=== PATIENT | female | born 1990 | race Caucasian/White ===

== ENCOUNTER → 2017-03-22 07:40 | Outpatient (CLI) | payer OTHER, SELFPAY ==
[2017-03-22 08:35] LABS: Anion Gap 8 (5-15); BUN 10 mg/dL (7-18); Calcium,Total 8.6 mg/dL (8.5-10.1); Chloride 103 mmol/L (98-107); Creatinine, Serum 0.71 mg/dL (0.55-1.02); EST Glomerular Filtration Rate 105 mL/min (>60); Est Glom Filt Rate - Afr Amer 127 mL/min (>60); Glucose 93 mg/dL (74-106); Sodium Level 138 mmol/L (136-145)
== END ==
PROVIDERS: Family Provider Family Medicine; PCP Family Medicine; Visit Provider Family Medicine
DX: N18.1 Chronic kidney disease, stage 1 (principal)
CPT/HCPCS: 36415; 80048

== ENCOUNTER 2017-04-10 13:04 | Outpatient (RCR) | payer OTHER, SELFPAY ==
--- NOTE | 2017-04-28 08:43 | MASS.EVAL ---
Massage Therapy Evaluation: Initial Evaluation: Date: 04/10/17 Pt Name: Pia Rothman : 89 V#:[id number] Referring Phys: Dr. 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 Radford with the diagnosis of right low back pain. Today she presents with symptoms of pain that goes across her back and right sciatica pain that goes down her leg. The symptoms have been present for a few months. The symptoms commenced due to pulling her back at work and has not completely ever healed. Overall, her health is in good condition. Pia is currently taking contrave, pre camilo vitamins as medications. Objective: The first treatment consisted of an upper body massage and posterior legs. I focused on the paraspinals, upper trapezium, rhomboids, scalenes, ql,s, gluteus medius, sacral ligaments. Moderate-deep pressure was applied with trigger points and muscle stripping. Assessment: Muscle tension was very high with trigger points in the glutes, quadratus lumborum, and lumbar paraspinals on the right side. Patient reported feeling really good post the massage. I feel that the patient is a great candidate for massotherapy at this time. Plan: The plan of care was reviewed with the patient. The patient is to be seen in 2 weeks then on a regular basis for one hour sessions of massotherapy.
--- NOTE | 2017-04-28 08:51 | MASS.EVAL_ITS ---
Massage Therapy Evaluation: Initial Evaluation: Date: 04/10/17 Pt Name: Pia Rothman : 89 V#: [id number] Referring Phys: Dr. 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 Radford with the diagnosis of right low back pain. Today she presents with symptoms of pain that goes across her back and right sciatica pain that goes down her leg. The symptoms have been present for a few months. The symptoms commenced due to pulling her back at work and has not completely ever healed. Overall, her health is in good condition. Pia is currently taking contrave, pre camilo vitamins as medications. Objective: The first treatment consisted of an upper body massage and posterior legs. I focused on the paraspinals, upper trapezium, rhomboids, scalenes, ql,s, gluteus medius, sacral ligaments. Moderate-deep pressure was applied with trigger points and muscle stripping. Assessment: Muscle tension was very high with trigger points in the glutes, quadratus lumborum, and lumbar paraspinals on the right side. Patient reported feeling really good post the massage. I feel that the patient is a great candidate for massotherapy at this time. Plan: The plan of care was reviewed with the patient. The patient is to be seen in 2 weeks then on a regular basis for one hour sessions of massotherapy.
--- NOTE | 2018-02-02 13:52 | DS.PCM_ITS ---
Massage Therapy Discharge Summary: Discharge Date: 02/01/2018 Pia was seen for a massotherapy evaluation on 04/10/17 with the diagnosis of low back pain. She was treated with one sessions of massage therapy consisting of moderate pressure soft tissue techniques, myofascial release and trigger point compression to her lumbar region and hips. Pia responded well to the therapy by reporting decreased tension in her lower back and hips. Her goals for therapy were not met throughout the treatment sessions due to not scheduling more appointments within the time frame given. At this time this patient is being discharged from our care at [facility] facility.
== END 2017-04-10 19:00 | disposition home or self-care (01) ==
LOC: MASS 13:04
PROVIDERS: Family Provider Family Medicine; PCP Family Medicine; Visit Provider Family Medicine
DX: M54.9 Dorsalgia, unspecified (principal)
CPT/HCPCS: 97124

== ENCOUNTER → 2017-08-13 10:20 | Outpatient (CLI) | payer OTHER, SELFPAY ==
[2017-08-13 11:15] LABS: Absolute Lymphocyte Count 1.83 X10^3/ul (0.83-4.51); Absolute Neutrophil Count 8.5 X10^3/uL (2.0-7.7); Basophil# 0.01 X10^3/uL; Basophil% 0.1 % (0-1); Eosinophil# 0.06 X10^3/uL; Eosinophils% 0.6 % (0-5); Hematocrit 39.3 % (37-47); Hemoglobin 13.8 g/dl (12.0-15.0); Lymphocyte # 1.83 X10^3/ul (4.0); Lymphocyte % 16.8 % (19-41); Mean Corp Hgb Conc 35.1 g/gl (32-36); Mean Corpuscular Hgb 28.9 pg (27.0-32.0); Mean Corpuscular Volume 82.2 fL (81-99); Mean Platelet Vol. 10.3 fl (6.2-12.0); Monocyte# 0.42 X10^3/uL; Monocyte% 3.9 % (0-10); Neutrophil # 8.54 X10^3/uL (2.7-7.7); Neutrophil % 78.4 % (47-70); Platelet Count 226 K/mm3 (150-450); RBC Distribution Width CV 12.8 % (11.6-14.6); RBC Distribution Width SD 37.8 fl (35.1-43.9); Red Blood Count 4.78 M/mm3 (4.2-5.4); White Blood Count 10.9 K/mm3 (4.4-11.0)
[2017-08-13 11:19] LABS: POSITIVE COUNT NO; POSITIVE DIFFERENTIAL NO; POSITIVE MORPHOLOGY NO
[2017-08-13 11:42] LABS: ALB/GLOB Ratio 0.8 RATIO (0.9-2.4); AST(SGOT) 19 U/L (15-37); Alanine Aminotransfer ALT/SGPT 30 U/L (13-56); Albumin, Serum 3.3 g/dL (3.2-5.0); Alkaline Phosphatase 88 U/L (45-117); Anion Gap 10 (5-15); BUN 5 mg/dL (7-18); BUN/Creat Ratio 7.3 RATIO (10-20); Calcium,Total 8.2 mg/dL (8.5-10.1); Chloride 107 mmol/L (98-107); Creatinine, Serum 0.68 mg/dL (0.55-1.02); EST Glomerular Filtration Rate 110 mL/min (>60); Est Glom Filt Rate - Afr Amer 133 mL/min (>60); Globulin 3.9 g/dL (2.2-4.2); Glucose 122 mg/dL (74-106); Glucose Challenge Gest 1H 50g 122 mg/dL (70-140); Potassium 3.4 mmol/L (3.5-5.1); Protein, Total 7.2 g/dL (6.4-8.2); Sodium Level 140 mmol/L (136-145)
[2017-08-13 12:26] LABS: HIV - WCH Non-Reactive (Nonreactive); Rubella IgG 290.4 IU/mL
[2017-08-14 02:00] LABS: Chlamydia Trachomatis by PCR Negative (Negative); Neisserai gonorrhoeae by PCR Negative (Negative); Probe Check PASS; Sample Adequacy Control PASS; Specimen Processing Control PASS
[2017-08-14 20:08] LABS: HCV Quant. RNA PCR HCV Not Detected IU/mL (.)
[2017-08-15 10:15] LABS: HEPATITIS B SURFACE AG Negative (Negative)
[2017-08-15 13:30] LABS: HPV Reflexed? NOT INDICATED
[2017-08-17 02:41] LABS: Rapid Plasmin Reagin (RPR) NONREACTIVE (NONREACTIVE)
== END ==
PROVIDERS: Family Provider Family Medicine; PCP Family Medicine; Visit Provider Obstetrics & Gynecology
DX: Z34.90 Encounter for supervision of normal pregnancy, unspecified, unspecified trimester (principal); Z12.4 Encounter for screening for malignant neoplasm of cervix
CPT/HCPCS: 36415; 80053; 82950; 85025; 86592; 86703; 86762; 86850; 86900; 87086; 87340; 87491; 87522; 87591; 88175; G0145

== ENCOUNTER → 2017-09-11 09:31 | Outpatient (CLI) | payer OTHER, SELFPAY | LOC: LABSPEC 09:33 → LAB 09:36 | PROVIDERS: Family Provider Family Medicine; PCP Family Medicine; Visit Provider Obstetrics & Gynecology | DX: Z34.81 Encounter for supervision of other normal pregnancy, first trimester (principal) | CPT/HCPCS: 36415 ==

== ENCOUNTER → 2017-10-10 08:10 | Outpatient (CLI) | payer OTHER, SELFPAY ==
[2017-10-10 08:44] LABS: Hematocrit 38.1 % (37-47); Hemoglobin 13.3 g/dl (12.0-15.0); Mean Corp Hgb Conc 34.9 g/gl (32-36); Mean Corpuscular Hgb 29.1 pg (27.0-32.0); Mean Corpuscular Volume 83.4 fL (81-99); Mean Platelet Vol. 10.2 fl (6.2-12.0); Platelet Count 205 K/mm3 (150-450); RBC Distribution Width CV 13.3 % (11.6-14.6); RBC Distribution Width SD 39.6 fl (35.1-43.9); Red Blood Count 4.57 M/mm3 (4.2-5.4); White Blood Count 10.3 K/mm3 (4.4-11.0)
[2017-10-10 08:51] LABS: Scan Indicated on CBC? Y/N NO
[2017-10-10 08:55] LABS: Albumin, Serum 2.8 g/dL (3.2-5.0); BUN 5 mg/dL (7-18); BUN/Creat Ratio 7.6 RATIO (10-20); Calcium,Total 8.4 mg/dL (8.5-10.1); Chloride 106 mmol/L (98-107); Creatinine, Serum 0.66 mg/dL (0.55-1.02); EST Glomerular Filtration Rate 115 mL/min (>60); Est Glom Filt Rate - Afr Amer 139 mL/min (>60); Glucose 111 mg/dL (74-106); Magnesium 1.8 mg/dL (1.6-2.6); Phosphorus 3.2 mg/dL (2.5-4.9); Potassium 3.6 mmol/L (3.5-5.1); Sodium Level 141 mmol/L (136-145)
[2017-10-10 09:04] LABS: Microalbumin,Random Urine 20.1 mg/L (NO RANGE EST.); Microalbumin:Creatinine Ratio 9.5 mg/g CRE (<30 mg/g CRE)
== END ==
PROVIDERS: Family Provider Family Medicine; PCP Family Medicine; Visit Provider Internal Medicine Nephrology
DX: N18.1 Chronic kidney disease, stage 1 (principal)
CPT/HCPCS: 36415; 80069; 82043; 82570; 83735; 85027

== ENCOUNTER → 2017-11-05 10:41 | Outpatient (CLI) | payer OTHER, SELFPAY | PROVIDERS: Family Provider Family Medicine; PCP Family Medicine; Referring Provider Obstetrics & Gynecology; Visit Provider Obstetrics & Gynecology | DX: Z34.01 Encounter for supervision of normal first pregnancy, first trimester (principal) | CPT/HCPCS: 36415 ==

== ENCOUNTER 2017-11-29 21:54 | Outpatient (CLI) | payer OTHER, SELFPAY ==
[2017-11-29 22:33] VITALS: BMI 39.5
--- NOTE | 2017-12-02 02:49 | OB.TRI.NOTE ---
- Problem List (1) Fall Status: Acute History of Present Illness Date of Service: 11/29/17 Reason For Visit: R/O LABOR History of Present Illness: fall Allergies No Known Allergies Allergy (Verified 11/29/17 22:44) - Pertinent Past Medical History Medical History: Past Medical History (Last Reviewed 11/15/17 @ 08:57 by Abril Corrales) Headaches, cluster Heart murmur Kidney disease h/o apendectomy osteoprosis Surgical History: Past Surgical History (Last Reviewed 11/15/17 @ 08:57 by Abril Corrales) History of tonsillectomy kidney biopsy NST - FHR Rate Baby A Baseline: 150 Impression/Plan fall. fht confirmed and patient reassured, precautions reviewed.
== END 2017-11-29 22:40 | disposition home or self-care (01) ==
LOC: WPOUT 22:29 → WP 22:30
PROVIDERS: Family Provider Family Medicine; PCP Family Medicine; Visit Provider Obstetrics & Gynecology
DX: Z04.3 Encounter for examination and observation following other accident (principal)
CPT/HCPCS: 59050; 99218; G0378

== ENCOUNTER → 2018-01-03 14:24 | Outpatient (CLI) | payer OTHER, SELFPAY ==
[2018-01-03 13:29] VITALS: BMI 39.4
[2018-01-03 14:40] LABS: Absolute Lymphocyte Count 1.51 X10^3/ul (0.83-4.51); Absolute Neutrophil Count 8.8 X10^3/uL (2.0-7.7); Basophil# 0.01 X10^3/uL; Basophil% 0.1 % (0-1); Eosinophil# 0.12 X10^3/uL; Eosinophils% 1.1 % (0-5); Hematocrit 35.1 % (37-47); Hemoglobin 11.8 g/dl (12.0-15.0); Lymphocyte # 1.51 X10^3/ul (4.0); Mean Corp Hgb Conc 33.6 g/gl (32-36); Mean Corpuscular Hgb 28.6 pg (27.0-32.0); Mean Platelet Vol. 9.4 fl (6.2-12.0); Monocyte# 0.32 X10^3/uL; Neutrophil # 8.78 X10^3/uL (2.7-7.7); Neutrophil % 81.6 % (47-70); Platelet Count 191 K/mm3 (150-450); RBC Distribution Width CV 13.5 % (11.6-14.6); Red Blood Count 4.13 M/mm3 (4.2-5.4); White Blood Count 10.8 K/mm3 (4.4-11.0)
[2018-01-03 14:41] LABS: POSITIVE COUNT NO; POSITIVE DIFFERENTIAL NO; POSITIVE MORPHOLOGY NO
[2018-01-03 14:55] LABS: Glucose Challenge Gest 1H 50g 153 mg/dL (70-140)
--- OUTSIDE RECORDS SUMMARY | 2018-02-28 20:01 | XMS RPT_ITS ---
:1990 Author Organization [place] Support Name Relationship Address Phone WANDA FITZGERALD Unavailable [address] + [place] [address] SMUCKER, LEONIDES Unavailable [address] + [place] [address] [facility] Unavailable [address] + [place] [address] FITZGERALDWANDA BURGESS Unavailable [address] + [place] [address] WHITLEY, LEONIDES Unavailable [address] + [place] [address] [facility] Unavailable [address] + [place] [address] FITZGERALDDAPHNEY BURGESSIE Unavailable [address] + [place] [address] SMUCKER, LEONIDES Unavailable [address] + [place] [address] FITZGERALDDAPHNEY BURGESSIE Unavailable [address] + [place] [address] WHITLEY, LEONIDES Unavailable [address] + [place] [address] [facility] Unavailable [address] + [place] [address] FITZGERALDDAPHNEY BURGESSIE Unavailable [address] + [place] [address] SMUCKER, LEONIDES Unavailable [address] + [place] [address] [facility] Unavailable [address] + [place] [address] FITZGERALD, WANDA Unavailable [address] + [place] [address] SMUCKER, LEONIDES Unavailable [address] + [place] [address] [facility] Unavailable [address] + [place] [address] FITZGERALD, WANDA Unavailable [address] + [place] [address] SMUCKER, LEONIDES Unavailable [address] + [place] [address] FITZGERALD, WANDA Unavailable [address] + [place] [address] SMUCKER, LEONIDES Unavailable [address] + [place] [address] [facility] Unavailable [address] + [place] [address] FITZGERALD, WANDA Unavailable [address] + [place] [address] SMUCKER, LEONIDES Unavailable [address] + [place] [address] [facility] Unavailable [address] + [place] [address] FITZGERALD, WANDA Unavailable [address] + [place] [address] SMUCKER, LEONIDES Unavailable [address] + [place] [address] [facility] Unavailable [address] + [place] [address] FITZGERALD, WANDA Unavailable [address] + [place] [address] SMUCKER, LEONIDES Unavailable [address] + [place] [address] FITZGERALD, WANDA Unavailable [address] + [place] [address] SMUCKER, LEONIDES Unavailable [address] + [place] [address] [facility] Unavailable [address] + [place] [address] FITZGERALD, WANDA Unavailable [address] + [place] [address] SMUCKER, LEONIDES Unavailable [address] + [place] [address] [facility] Unavailable [address] + [place] [address] FITZGERALD, WANDA Unavailable [address] + [place] [address] SMUCKER, LEONIDES Unavailable [address] + [place] [address] [facility] Unavailable [address] + [place] [address] FITZGERALD, WANDA Unavailable [address] + [place] [address] SMUCKER, LEONIDES Unavailable [address] + [place] [address] [facility] Unavailable [address] + [place] [address] FITZGERALD, WANDA Unavailable [address] + [place] [address] SMUCKER, LEONIDES Unavailable [address] + [place] [address] FITZGERALD, WANDA Unavailable [address] + [place] [address] SMUCKER, LEONIDES Unavailable [address] + [place] [address] [facility] Unavailable [address] + [place] [address] FITZGERALD, WANDA Unavailable [address] + [place] [address] SMUCKER, LEONIDES Unavailable [address] + [place] [address] [facility] Unavailable [address] + [place] [address] FITZGERALD, WANDA Unavailable [address] + [place] [address] SMUCKER, LEONIDES Unavailable [address] + [place] [address] [facility] Unavailable [address] + [place] [address] FITZGERALD, WANDA Unavailable [address] + [place] [address] SMUCKER, LEONIDES Unavailable [address] + [place] [address] [facility] Unavailable [address] + [place] [address] FITZGERALD, WANDA Unavailable [address] + [place] [address] SMUCKER, LEONIDES Unavailable [address] + [place] [address] [facility] Unavailable [address] + [place] [address] FITZGERALD, WANDA Unavailable [address] + [place] [address] SMUCKER, LEONIDES Unavailable [address] + [place] [address] [facility] Unavailable [address] + [place] [address] FITZGERALD, WANDA Unavailable [address] + [place] [address] SMUCKER, LEONIDES Unavailable [address] + [place] [address] [facility] Unavailable [address] + [place] [address] FITZGERALD, WANDA Unavailable [address] + [place] [address] SMUCKER, LEONIDES Unavailable [address] + [place] [address] [facility] Unavailable [address] + [place] [address] FITZGERALD, WANDA Unavailable [address] + [place] [address] SMUCKER, LEONIDES Unavailable [address] + [place] [address] [facility] Unavailable [address] + [place] [address] FITZGERALD, WANDA Unavailable [address] + [place] [address] SMUCKER, LEONIDES Unavailable [address] + [place] [address] [facility] Unavailable [address] + [place] [address] FITZGERALD, WANDA Unavailable [address] + [place] [address] SMUCKER, LEONIDES Unavailable [address] + [place] [address] [facility] Unavailable [address] + [place] [address] FITZGERALD, ROSALIA Unavailable [address] + [place] [address] FITZGERALD, WANDA Unavailable [address] + [place] [address] FITZGERALD, WANDA Unavailable [address] + [place] [address] SMUCKER, LEONIDES Unavailable [address] + [place] [address] [facility] Unavailable [address] + [place] [address] FITZGERALD, WANDA Unavailable [address] + [place] [address] SMUCKER, LEONIDES Unavailable [address] + [place] [address] [facility] Unavailable [address] + [place] [address] FITZGERALD, WANDA Unavailable [address] + [place] [address] SMUCKER, LEONIDES Unavailable [address] + [place] [address] [facility] Unavailable [address] + [place] [address] FITZGERALD, WANDA Unavailable [address] + [place] [address] SMUCKER, LEONIDES Unavailable [address] + [place] [address] [facility] Unavailable [address] + [place] [address] FITZGERALD, WANDA Unavailable [address] + [place] [address] SMUCKER, LEONIDES Unavailable [address] + [place] [address] [facility] Unavailable [address] + [place] [address] FITZGERALD, WANDA Unavailable [address] + [place] [address] SMUCKER, LEONIDES Unavailable [address] + [place] [address] [facility] Unavailable [address] + [place] [address] FITZGERALD, WANDA Unavailable [address] + [place] [address] SMUCKER, LEONIDES Unavailable [address] + [place] [address] [facility] Unavailable [address] + [place] [address] FITZGERALD, WANDA Unavailable [address] + [place] [address] SMUCKER, LEONIDES Unavailable [address] + [place] [address] [facility] Unavailable [address] + [place] [address] Care Team Providers Name Role Phone SHWETA DYSON Referring Unavailable DORA BARRIENTOS Attending Unavailable DES MOINES SUGEY Primary Care Unavailable KIRT AGUAYO Primary Care Unavailable SHWETA DYSON Referring Unavailable DORA BARRIENTOS Attending Unavailable AMISH MERCEDES Attending Unavailable KIRT AGUAYO Primary Care Unavailable SHWETA DYSON Referring Unavailable AMISH MERCEDES Attending Unavailable KIRT AGUAYO Primary Care Unavailable SHWETA DYSON Referring Unavailable AMISH MERCEDES Attending Unavailable KIRT AGUAYO Primary Care Unavailable SHWETA DYSON Referring Unavailable Yamini Hastings D.C. Attending Unavailable Kirt Aguayo Referring Unavailable Yamini Hastings D.C. Attending Unavailable Kirt Aguayo Referring Unavailable Aguayo, Kirt Primary Care Unavailable Dossie, Yamini Schwartz Attending Unavailable Aguayo, Kirt Referring Unavailable Aguayo, Kirt Primary Care Unavailable [place] RockKaryn Attending Unavailable Aguayo, Kirt Referring Unavailable Aguayo, Kirt Primary Care Unavailable Dossie, Yamini Schwartz Attending Unavailable Aguayo, Kirt Referring Unavailable Aguayo, Kirt Primary Care Unavailable Dossie, Yamini Schwartz Attending Unavailable Aguayo, Kirt Referring Unavailable Aguayo, Kirt Primary Care Unavailable Dossie, Yamini Schwartz Attending Unavailable Aguayo, Kirt Referring Unavailable Aguayo, Kirt Primary Care Unavailable Dossie, Yamini Schwartz Attending Unavailable Aguayo, Kirt Referring Unavailable Aguayo, Kirt Primary Care Unavailable Aguayo, Kirt Attending Unavailable Aguayo, Kirt Referring Unavailable Aguayo, Kirt Primary Care Unavailable Aguayo, Kirt Attending Unavailable Aguayo, Kirt Primary Care Unavailable Aguayo, Kirt Referring Unavailable DOCTOR, OUT OF TOWN Referring Unavailable Aguayo, Kirt Primary Care Unavailable PlaylFredrick Attending Unavailable ASSESSMENT, HEALTH RISK Attending Unavailable ASSESSMENT, HEALTH RISK Referring Unavailable Aguayo, Kirt Primary Care Unavailable MarcanthonyShweta Attending Unavailable Aguayo, Kirt Referring Unavailable Aguayo, Kirt Primary Care Unavailable Marcanthony, Shweta Attending Unavailable Marcanthony, Shweta Referring Unavailable Aguayo, Kirt Primary Care Unavailable Marcanthony, Shweta Attending Unavailable Aguayo, Kirt Referring Unavailable Aguayo, Kirt Primary Care Unavailable OsmanKaryn Attending Unavailable Aguayo, Kirt Referring Unavailable Aguayo, Kirt Primary Care Unavailable Marcanthony, Shweta Attending Unavailable Aguayo, Kirt Referring Unavailable [place] RockKaryn Attending Unavailable Aguayo, Kirt Referring Unavailable Marcanthony, Shweta Attending Unavailable Marcanthony, Shweta Referring Unavailable Aguayo, Kirt Primary Care Unavailable Tanphaichitr, Natthavat Attending Unavailable Aguayo, Kirt Primary Care Unavailable Tanphaichitr, Natthavat Referring Unavailable Dossie, Yamini Schwartz Attending Unavailable Aguayo, Kitr Referring Unavailable Aguayo, Kirt Primary Care Unavailable Dossie, Yamini Schwartz Attending Unavailable Marcanthony, Shweta Attending Unavailable Marcanthony, Shweta Referring Unavailable Aguayo, Kirt Primary Care Unavailable Dossie, Yamini Schwartz Attending Unavailable Aguayo, Kirt Referring Unavailable Dossie, Yamini Schwartz Attending Unavailable Aguayo, Kirt Referring Unavailable Marcanthony, Shweta Attending Unavailable Aguayo, Kirt Primary Care Unavailable Marcanthony, Shweta Attending Unavailable Aguayo, Kirt Primary Care Unavailable Marcanthony, Shweta Consulting Unavailable Marcanthony, Shweta Attending Unavailable Aguayo, Kirt Referring Unavailable Marcanthony, Shweta Attending Unavailable Aguayo, Kirt Primary Care Unavailable Marcanthony, Shweta Attending Unavailable Marcanthony, Shweta Referring Unavailable Aguayo, Kirt Primary Care Unavailable Marcanthony, Shweta Attending Unavailable Aguayo, Kirt Referring Unavailable PROBLEMS PROBLEMS DATE TYPE CONDITION / CODE ATTENDING STATUS SOURCE 01/16/2018 Unknown M99.03 - Segmental Dossie, Yamini Active [place] and [facility] dysfunction of Hospital lumbar region / Repository M99.03(ICD-10) 01/16/2018 Unknown M99.01 - Segmental Dossie, Yamini Active [place] and somatic [facility] dysfunction of Hospital cervical region / Repository M99.01(ICD-10) 01/16/2018 Unknown M99.02 - Segmental Dossie, Yamini Active [place] and somatic [facility] dysfunction of Hospital thoracic region / Repository M99.02(ICD-10) 01/16/2018 Unknown M99.04 - Segmental Dossie, Yamini Active [place] and somatic [facility] dysfunction of Hospital sacral region / Repository M99.04(ICD-10) 01/14/2018 Unknown N05.9 - Unspecified Marcanthony, Active [place] nephritic syndrome [facility] with unspecified Hospital morphologic changes Repository / N05.9(ICD-10) 01/14/2018 Unknown Z34.02 - Encounter Phillip, Active [place] for supervision of [facility] normal first Hospital , second Repository trimester / Z34.02(ICD-10) 01/14/2018 Unknown O09.899 - Marcanthony, Active [place] Supervision of [facility] other high risk Hospital pregnancies, Repository unspecified trimester / O09.899(ICD-10) 01/14/2018 Unknown Z30.9 - Encounter Marcanthval, Active [place] for contraceptive [facility] management, Hospital unspecified / Repository Z30.9(ICD-10) 01/14/2018 Unknown Z3A.30 - 30 weeks Marcanthony, Active [place] gestation of [facility] / Hospital Z3A.30(ICD-10) Repository 01/14/2018 Unknown R73.09 - Other Marcanthony, Active [place] abnormal glucose / [facility] R73.09(ICD-10) Hospital Repository 01/03/2018 Unknown Z34.90 - Encounter Marcanthony, Active [place] for supervision of [facility] normal , Hospital unspecified, Repository unspecified trimester / Z34.90(ICD-10) 01/03/2018 Unknown Z23 - Encounter for Marcmorenita, Active [place] immunization / [facility] Z23(ICD-10) Hospital Repository 01/03/2018 Unknown Z3A.24 - 24 weeks Marcanthony, Active [place] gestation of [facility] / Hospital Z3A.24(ICD-10) Repository 12/03/2017 Unknown Z04.3 - Encounter Phillip, Active [place] for examination and [facility] observation Hospital following other Repository accident / Z04.3(ICD-10) 11/16/2017 Unknown M99.05 - Segmental Yamini Hastings Active [place] and somatic [facility] dysfunction of Hospital pelvic region / Repository M99.05(ICD-10) 11/22/2017 Unknown Z34.01 - Encounter Marcanthony, Active [place] for supervision of [facility] normal first Hospital , first Repository trimester / Z34.01(ICD-10) 11/05/2017 Unknown Z3A.20 - 20 weeks Marcanthony, Active [place] gestation of [facility] / Hospital Z3A.20(ICD-10) Repository 09/20/2017 Unknown Z34.81 - Encounter Marcanthony, Active [place] for supervision of [facility] other normal Hospital , first Repository trimester / Z34.81(ICD-10) 09/11/2017 Unknown Z36.9 - Encounter Phillip, Active [place] for [facility] screening, Hospital unspecified / Repository Z36.9(ICD-10) 03/08/2017 Unknown M54.9 - Dorsalgia, Yamini Hastings Active [place] unspecified / [facility] M54.9(ICD-10) Hospital Repository 02/27/2017 Unknown Z30.432 - Encounter Karyn Brewer Active [place] for removal of [facility] intrauterine Hospital contraceptive Repository device / Z30.432(ICD-10) PROCEDURES PROCEDURES No Procedure Records FoundRESULTS RESULTS CHIROPRACTIC REPORT Observed: 01/15/2018 Status: F Source: [place] 9:02 AM [facility] REPOSITORY [facility] [address] [place] [address] OFFICE VISIT Date of Service: 01/15/18 MR#: [id number] Acct: [id number] Name: PIA ROTHMAN Rep #: [id number] : 1990 Provider: Yamini Abraham D.C. Age/Sex: /F [place] [facility] [place]: Signed Intake Vital Signs01/15/18 Height 5 ft 2 in 01/15/18 Weight: 214 lb 01/15/18 Body Mass Index (BMI) 39.1 Intake Visit Reasons: back pain Chief Complaint: bilateral hip pain Is patient in pain?: Yes Allergies No Known Allergies Allergy (Verified 01/14/18 09:09) Medications vitamin,calcium,brjouzit-owlv-iugvo acid tablet 1 tab PO QDAY 08/13/17 [History Confirmed 01/14/18] aspirin 81 mg chewable tablet 81 mg PO DAILY 10/09/17 [History Confirmed 01/14/18] ranitidine 150 mg tablet 150 mg PO BID #60 tab 11/09/17 [Rx Confirmed 01/14/18] cyclobenzaprine 10 mg tablet 10 mg PO TID PRN #30 tab 01/03/18 [Rx Confirmed 01/14/18] Patient : Yes PFSH Medical History Headaches, cluster (Acute) Heart murmur (Acute) Kidney disease (Acute) h/o apendectomy (Acute) osteoprosis (Acute) Surgical History History of tonsillectomy (Acute) kidney biopsy (Acute) Family History Other Arthritis Breast cancer COPD (chronic obstructive pulmonary disease) Colon cancer Heart disease Hypertension Melanoma Social History Smoking Status: Never smoker alcohol intake: current alcohol intake frequency: holidays/special occasions only Alcohol type: wine, hard liquor details: social substance use type: does not use caffeine: Yes what type of physical activity do you participate in: walking, running duration: 30-45 minutes/day seatbelt use: always do you feel safe at home: Yes additional social history: 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 She is currently 30 weeks and states that her hip pain has increased, leaving her with a sore and tight ache that bands across the low back and into the hips. Rotation, bending, lifting, and twisting causes increased pain, at times the pain can be sharp. Pia also complains of round ligament pain and tightness, but denies any numbness, tingling, or radiculopathy. Location: low back and hips Duration: constant Aggravating or associated factors: rotation, bending, lifting, and twisting Relieving factors: chiro and sitting Pain Quality: aching, dull, cramping, sharp Exam Musc General: Yes normal posture, normal gait and joint tenderness (C5, C6,L3, L5, R SI) Cervical Spine: loss of normal cervical lordosis (mild anterior head carriage), cervical ROM normal, cervical spasm ( L levator scap/upper trap), cervical muscular tenderness Thoracic/Lumbar Spine: thoracic and lumbar spine normal to inspection, pain with thoraco-lumbar ROM, thoraco-lumbar spasm on the right greater than left (QL, piriformis), paraspinal tenderness on the right greater than left (lumbar, pelvis) Sacroiliac joints: on the left Sacrum: tenderness on the left Office Procedures Chiropractic Treatments Procedures Manipulation: 3-4 regions (C4,C6, L3, L sacrum) Assessment AND Plan 1. Segmental and somatic dysfunction of lumbar region M99.03 Orders Orders: 2. Segmental and somatic dysfunction of cervical region M99.01 Orders Orders: 3. Segmental and somatic dysfunction of sacral region M99.04 Plan Detail Other Orders Orders: Goals Decrease pain and spasm Barriers Repetitive lifting Follow Up 1 x month Coding Level of Care Code No Charge Diagnoses Segmental and somatic dysfunction of lumbar region M99.03 Segmental and somatic dysfunction of cervical region M99.01 Segmental and somatic dysfunction of sacral region M99.04 Additional Codes Procedures - Manipulation: 3-4 regions (22897) 01/15/18 0902 <Electronically signed by Yamini Abraham D.C.> Date Yamini Pratt Signature: Date (if applicable) CC: [employer] [facility] OFFICE VISIT Observed: 01/14/2018 Status: F Source: [place] REPORT 9:30 AM [facility] REPOSITORY [facility] [address] [place] [address] OFFICE VISIT Date of Service: 01/14/18 MR#: [id number] Acct: [id number] Name: PIA ROTHMAN Rep #: [id number] : 1990 Provider: Shweta Dyson MD Age/Sex: 27/F [place] [facility] [place]: Signed Intake Vital Signs01/14/18 Body Mass Index (BMI) 39.4 01/14/18 Height 5 ft 2 in 01/14/18 Weight: 214 lb 8 oz 01/14/18 Body Mass Index (BMI) 39.2 01/14/18 Blood Pressure 122/72 H Intake Visit Reasons: 30 weeks Family Protection Specialist Required: No Is patient in pain?: No Allergies No Known Allergies Allergy (Verified 01/14/18 09:09) Medications vitamin,calcium,mukirahs-wwnd-wbumg acid tablet 1 tab PO QDAY 08/13/17 [History Confirmed 01/14/18] aspirin 81 mg chewable tablet 81 mg PO DAILY 10/09/17 [History Confirmed 01/14/18] ranitidine 150 mg tablet 150 mg PO BID #60 tab 11/09/17 [Rx Confirmed 01/14/18] cyclobenzaprine 10 mg tablet 10 mg PO TID PRN #30 tab 01/03/18 [Rx Confirmed 01/14/18] Last Menstral Period: 06/16/17 Zika: Zika virus screening: Negative : No PFSH PFSH Medical History Headaches, cluster (Acute) Heart murmur (Acute) Kidney disease (Acute) h/o apendectomy (Acute) osteoprosis (Acute) Surgical History History of tonsillectomy (Acute) kidney biopsy (Acute) Family History Other Arthritis Breast cancer COPD (chronic obstructive pulmonary disease) Colon cancer Heart disease Hypertension Melanoma Social History Smoking Status: Never smoker alcohol intake: current alcohol intake frequency: holidays/special occasions only Alcohol type: wine, hard liquor details: social substance use type: does not use caffeine: Yes what type of physical activity do you participate in: walking, running duration: 30-45 minutes/day seatbelt use: always do you feel safe at home: Yes 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 OB Visit KRISTINE Calculator Estimated Delivery Date 03/23/18 Based on LMP (certain) 06/16/17 Current WG 30w 2d Number 1 Expected Delivery Route/Plan Specific Issue/Plans flu vaccine: given tdap vaccine: tdap given rhogam: NA LARC form signed: declines labor support person: [place] pain management: epidural cut cord/dad catch: cord : yes PP control planned: mirena IUD special requests: [] Initial Weight: 205 lb Date Weight BP Urine PrFHR FuHt Pres MoCTX DilationFetal StVisit NoProviderComments E ot v te GA G Effac lucose ed Visit Notes Visit Date: 01/14/18 no vb lof good fm no regular ctx Shweta Dyson MD on 01/14/18 Visit Date: 01/03/18 no vb lof good fm n oregular ctx.cbc gct tdap Shweta Dyson MD on 01/03/18 Visit Date: 12/03/17 Doing well. Reviewed 2 vessel cord. No VB, LOF ARASH LangleyC on 12/03/17 Visit Date: 10/09/17 Doing well. No VB, LOF ARASH LangleyC on 10/09/17 Visit Date: 09/11/17 feeling anxious Shweta Dyson MD on 09/11/17 Visit Date: 08/13/17 No visit notes to display ACOG First Trimester First Trimester: Desire for , Alcohol, Tobacco Cessation, Illicit/Recreational Drug/Substance Use, Intimate Partner Violence, Barriers to care, Unstable Housing, Communication Barriers, Environmental/Work Hazards, Anticipated Course of Care, Toxoplasmosis Precations, Sexual activity, Exercise, Dental Care, Sauna/Hot tub use, Seat Belt use, Childbirth classes/Hospital facilities, , Travel, Indications for US and Screening for Aneuploidy; discussed Use of Any medications Diagnostics Diagnostics Labs Hct 35.1 % (37-47) L 01/03/18 Hgb 11.8 g/dl (12.0-15.0) L 01/03/18 Glucose 1 Hr 50 gm 153 mg/dL (70-140) H 01/03/18 Miscellaneous Test 11/05/17 Details: HIV: Urine Culture: Sequential Screen: NIPT Screen: Results [id number] Office Urine Glucose Negative Last Edit by Claudine Botello on 01/14/18 09:08 Office Urine Protein Negative Last Edit by Claudine Botello on 01/14/18 09:08 Assessment AND Plan Problems 1. Unspecified contraceptive management Z30.9 2. Two vessel umbilical cord, antepartum, single gestation O09.899 following with mfm. growth us q 4 weeks, weekly nsts after 32. 3. 30 weeks gestation of Z3A.30 MFM US ordered. echocardiogram-2 vessel cord, weekly NST at 32 weeks, growth US every 4 weeks. NIPT done, low risk, afp- negative. carrier screening declined. 4. Glomerulonephritis N05.9 MPGN with complete resolution- s/p mfm consult, recommend baby ASA, growth US in third trimester 5. Encounter for supervision of normal first in second trimester Z34.02 PRR KRISTINE 03/23/18 girl [place] 6. Abnormal glucose R73.09 3 hr GTT normal Plan movement and labor precautions reviewed. ACOG trimester education reviewed and updated. see problem list details for updated plan management information and see below for orders placed at this visit. GA appropriate handout given. Orders Orders: Plan Detail Goals Decrease pain and spasm Barriers Repetitive lifting Coding Level of Care Code OB Routine Diagnoses Unspecified contraceptive management Z30.9 Two vessel umbilical cord, antepartum, single gestation O09.899 30 weeks gestation of Z3A.30 Weeks of gestation: 30 weeks Glomerulonephritis N05.9 Encounter for supervision of normal first in second trimester Z34.02 Normal : normal first Trimester: second trimester Abnormal glucose R73.09 01/14/18 0930 <Electronically signed by Shweta Dyson MD> Date Shweta Dyson MD Cosigner Signature: Date (if applicable) CC: GESTATIONAL GTT 3HR Collected: 01/08/2018 Status: F Source: [place] 100G 6:58 AM [facility] REPOSITORY Order Comment: Is Patient Fasting? Y TYPE CODE TESTS RESULT OUT OF RANGE REFERENCE UNITS LAB L501.0650 <105 mg/dL Normal GLU 71 GTT-FASTING Result Comment: GLUCOSE TOLERANCE TEST FOR Reference Interval GESTATIONAL DIABETES Fasting <105 mg/dL 1 hour <190 mg/dl 2 hour <165 mg/dl 3 hour <145 mg/dl LAB L501.0660 <190 mg/dL Normal GLU GTT- 1HR 163 LAB L501.0670 <165 mg/dL Normal GLU GTT- 2HR 133 LAB L501.0680 <145 L Normal GLU GTT- 3HR 105 Performed By: #### L500.4710 #### [facility] [address] [place], [address] OPERATOR [employer] OFFICE VISIT Observed: 01/03/2018 Status: F Source: [place] REPORT 2:59 PM [facility] REPOSITORY [facility] [address] [place] [address] OFFICE VISIT Date of Service: 01/03/18 MR#: [id number] Acct: [id number] Name: PIA ROTHMAN Rep #: [id number] : 1990 Provider: Shweta Dyson MD Age/Sex: 27/F [place] [facility]: Signed Intake Vital Signs01/03/18 Height 5 ft 2 in 01/03/18 Weight: 216 lb 01/03/18 Body Mass Index (BMI) 39.4 01/03/18 Blood Pressure 104/60 Intake Visit Reasons: 28 weeks Chief Complaint: est ob Family Protection Specialist Required: No Is patient in pain?: No Allergies No Known Allergies Allergy (Verified 01/03/18 13:30) Medications vitamin,calcium,qceownrf-mvka-valem acid tablet 1 tab PO QDAY 08/13/17 [History Confirmed 01/03/18] aspirin 81 mg chewable tablet 81 mg PO DAILY 10/09/17 [History Confirmed 01/03/18] ranitidine 150 mg tablet 150 mg PO BID #60 tab 11/09/17 [Rx Confirmed 01/03/18] Last Menstral Period: 06/16/17 Zika: Zika virus screening: Negative : No PFSH PFSH Medical History Headaches, cluster (Acute) Heart murmur (Acute) Kidney disease (Acute) h/o apendectomy (Acute) osteoprosis (Acute) Surgical History History of tonsillectomy (Acute) kidney biopsy (Acute) Family History Other Arthritis Breast cancer COPD (chronic obstructive pulmonary disease) Colon cancer Heart disease Hypertension Melanoma Social History Smoking Status: Never smoker alcohol intake: current alcohol intake frequency: holidays/special occasions only Alcohol type: wine, hard liquor details: social substance use type: does not use caffeine: Yes what type of physical activity do you participate in: walking, running duration: 30-45 minutes/day seatbelt use: always do you feel safe at home: Yes additional 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 OB Visit KRISTINE Calculator Estimated Delivery Date 03/23/18 Based on LMP (certain) 06/16/17 Current WG 28w 5d Number 1 Expected Delivery Route/Plan Specific Issue/Plans flu vaccine: given tdap vaccine: tdap given rhogam: NA LARC form signed: ezra labor support person: [place] pain management: epidural cut cord/dad catch: cord : yes PP control planned: mirena IUD special requests: [] Initial Weight: Not Recorded Date Weight BP Urine PFHR FuHt Pres MCTX DilatioFetal SVisit NProvideComment rot ov n t ote r s EGA Ef Gluco faced se 08/14/1211 lb 114/70 8 8w 2d Visit Notes Visit Date: 01/03/18 no vb lof good fm n oregular ctx.cbc gct tdap Shweta Dyson MD on 01/03/18 Visit Date: 12/03/17 Doing well. Reviewed 2 vessel cord. No VB, LOF Karyn Brewer NP-C on 12/03/17 Visit Date: 10/09/17 Doing well. No VB, LOF Karyn Brewer NP-C on 10/09/17 Visit Date: 09/11/17 feeling anxious Shweta Dyson MD on 09/11/17 Visit Date: 08/13/17 No visit notes to display ACOG First Trimester First Trimester: Desire for , Alcohol, Tobacco Cessation, Illicit/Recreational Drug/Substance Use, Intimate Partner Violence, Barriers to care, Unstable Housing, Communication Barriers, Environmental/Work Hazards, Anticipated Course of Care, Toxoplasmosis Precations, Sexual activity, Exercise, Dental Care, Sauna/Hot tub use, Seat Belt use, Childbirth classes/Hospital facilities, , Travel, Indications for US and Screening for Aneuploidy; discussed Use of Any medications Diagnostics Diagnostics Labs Hct 35.1 % (37-47) L 01/03/18 Hgb 11.8 g/dl (12.0-15.0) L 01/03/18 Glucose 1 Hr 50 gm 153 mg/dL (70-140) H 01/03/18 Miscellaneous Test 11/05/17 Details: HIV: Urine Culture: Sequential Screen: NIPT Screen: Results [id number] Office Urine Glucose Negative Last Edit by Tammy Irvin on 01/03/18 14:25 Office Urine Protein Negative Last Edit by Tammy Irvin on 01/03/18 14:25 Immunizations Boostrix Tdap Performing Provider: Shweta Dyson MD Administered by: Claudine Botello on 01/03/18 14:20 Dose Route Admin Location Lot Number Expiration Date NDC Movie Projectionist 0.5 mL IM Left Arm (SQ) [id number] 11/30/19 62564-040-15 [employer] VIS Given Date VIS Publication Date 01/03/18 03/31/14 Eligibility Eligibility Date Assessment AND Plan Problems 1. Encounter for supervision of normal first in second trimester Z34.02 PRR KRISTINE 03/23/18 [place] 2. Glomerulonephritis N05.9 MPGN with complete resolution- s/p mfm consult, recommend baby ASA, growth US in third trimester 3. 24 weeks gestation of Z3A.24 MFM US ordered. echocardiogram-2 vessel cord, weekly NST at 32 weeks, growth US every 4 weeks. NIPT done, low risk, afp- negative. carrier screening declined. 4. Two vessel umbilical cord, antepartum, single gestation O09.899 following with mfm. growth us q 4 weeks, weekly nsts after 32. 5. Unspecified contraceptive management Z30.9 Plan movement and labor precautions reviewed. ACOG trimester education reviewed and updated. see problem list details for updated plan management information and see below for orders placed at this visit. GA appropriate handout given. Orders Orders: Medications Discontinued: Boostrix Tdap (diphth,pertus(acell),tetanus) Di0.5 mL IM ONCE 1 mL 0RF NS O09.899, Z23 scontinued Reason: Office Medication has been Doc umented as given Plan Detail Goals Decrease pain and spasm Barriers Repetitive lifting Coding Level of Care Code OB Routine Diagnoses Encounter for supervision of normal first in second trimester Z34.02 Normal : normal first Trimester: second trimester Glomerulonephritis N05.9 24 weeks gestation of Z3A.24 Weeks of gestation: 24 weeks Two vessel umbilical cord, antepartum, single gestation O09.899 Unspecified contraceptive management Z30.9 01/03/18 1459 <Electronically signed by Shweta Dyson MD> Date Shweta Dyson MD Cosigner Signature: Date (if applicable) CC: CBC W/DIFF, AUTOMATED Collected: 01/03/2018 Status: F Source: [place] 2:28 PM [facility] REPOSITORY TYPE CODE TESTS RESULT OUT OF RANGE REFERENCE UNITS LAB L100.1000 4.4-11.0 K/mm3 Normal WBC 10.8 LAB L100.1200 4.2-5.4 M/mm3 Low RBC 4.13 LAB L100.1300 12.0-15.0 g/dl Low HGB 11.8 LAB L100.1400 37-47 % Low HCT 35.1 LAB L100.1500 81-99 fL Normal MCV 85.0 LAB L100.1600 27.0-32.0 pg Normal MCH 28.6 LAB L100.1700 32-36 g/gl Normal MCHC 33.6 LAB L100.1810 11.6-14.6 % Normal RDW CV 13.5 LAB L100.1820 35.1-43.9 fl Normal RDW SD 42.0 LAB L100.1900 150-450 K/mm3 Normal PLT 191 LAB L100.2000 6.2-12.0 fl Normal MPV 9.4 LAB L100.2100 47-70 % High NEUT% 81.6 LAB L100.2200 19-41 % Low LY% 14.0 LAB L100.2300 0-10 % Normal MONO% 3.0 LAB L100.2400 0-5 % Normal EO% 1.1 LAB L100.2500 0-1 % Normal BASO% 0.1 LAB L100.2550 0.0-0.9 % Normal IM GRAN % 0.200 Result Comment: IG% - Immature Granulocytes (promyelocytes, myelocytes and metamyelocytes) > 1% indicates that a LEFT SHIFT is Present. LAB L100.2620 2.0-7.7 X10 3/uL High Absolute Neut 8.8 LAB L100.2720 0.83-4.51 X10 3/ul Normal Absolute Lymph 1.51 Performed By: #### L100.0100 #### [facility] [address], [address] GLUCOSE CHALLENGE GEST Collected: 01/03/2018 Status: F Source: [place] 1H 50G 2:28 PM [facility] REPOSITORY TYPE CODE TESTS RESULT OUT OF RANGE REFERENCE UNITS LAB L501.0250 70-140 mg/dL High GLU GEST 153 50g 1H Performed By: #### L501.0250 #### [place] [facility] [address], [address] OPERATOR [employer] OFFICE VISIT Observed: 12/03/2017 Status: F Source: [place] REPORT 3:35 PM [facility] REPOSITORY [facility] [address] [place] [address] OFFICE VISIT Date of Service: 12/03/17 MR#: [id number] Acct: [id number] Name: PIA ROTHMAN Venkat Rep #: [id number] : 1990 Provider: FLORENTINO Brewer Age/Sex: [place] [facility] [place]: Signed Intake Vital Signs12/03/17 Height 5 ft 2 in 12/03/17 Weight: 215 lb 8 oz 12/03/17 Body Mass Index (BMI) 39.4 12/03/17 Blood Pressure 118/78 Intake Visit Reasons: 24 weeks Family Protection Specialist Required: No Accompanied by: Is patient in pain?: No Allergies No Known Allergies Allergy (Verified 12/03/17 08:13) Medications vitamin,calcium,ymqyeljt-lqlc-wcrwr acid tablet 1 tab PO QDAY 08/13/17 [History Confirmed 11/29/17] aspirin 81 mg chewable tablet 81 mg PO DAILY 10/09/17 [History Confirmed 11/29/17] ranitidine 150 mg tablet 150 mg PO BID #60 tab 11/09/17 [Rx Confirmed 11/29/17] Last Menstral Period: 06/16/17 Zika: Zika virus screening: Negative : No Nurse's Note: Pt states she fell at work evening, but had gotten checked at labor and delivery and everything checked out ok. She also has questions regarding the future NSTs and some medication. PFSH PFSH Medical History Headaches, cluster (Acute) Heart murmur (Acute) Kidney disease (Acute) h/o apendectomy (Acute) osteoprosis (Acute) Surgical History History of tonsillectomy (Acute) kidney biopsy (Acute) Family History Other Arthritis Breast cancer COPD (chronic obstructive pulmonary disease) Colon cancer Heart disease Hypertension Melanoma Social History Smoking Status: Never smoker alcohol intake: current alcohol intake frequency: holidays/special occasions only Alcohol type: wine, hard liquor details: social substance use type: does not use caffeine: Yes what type of physical activity do you participate in: walking, running duration: 30-45 minutes/day seatbelt use: always do you feel safe at home: Yes 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 OB Visit KRISTINE Calculator Estimated Delivery Date 03/23/18 Based on LMP (certain) 06/16/17 Current WG 24w 2d Number 1 Expected Delivery Route/Plan Specific Issue/Plans flu vaccine: given tdap vaccine: [] rhogam: NA LARC form signed: declines labor support person: Leonides pain management: epidural cut cord/dad catch: cord : yes PP control planned: mirena IUD special requests: [] Initial Weight: Not Recorded Date Weight BP Urine PrFHR FuHt Pres MoCTX DilationFetal StVisit NoProviderComments E ot v te GA G Effac lucose ed Visit Notes Visit Date: 12/03/17 Doing well. Reviewed 2 vessel cord. No VB, LOF GILL Langley on 12/03/17 Visit Date: 10/09/17 Doing well. No VB, STEVANF ARASH LangleyC on 10/09/17 Visit Date: 09/11/17 feeling anxious Shweta Dyson MD on 09/11/17 Visit Date: 08/13/17 No visit notes to display ACOG First Trimester First Trimester: Desire for , Alcohol, Tobacco Cessation, Illicit/Recreational Drug/Substance Use, Intimate Partner Violence, Barriers to care, Unstable Housing, Communication Barriers, Environmental/Work Hazards, Anticipated Course of Care, Toxoplasmosis Precations, Sexual activity, Exercise, Dental Care, Sauna/Hot tub use, Seat Belt use, Childbirth classes/Hospital facilities, , Travel, Indications for US and Screening for Aneuploidy; discussed Use of Any medications Diagnostics Diagnostics Labs Blood Type O POSITIVE 08/13/17 Antibody Screen NEGATIVE 08/13/17 Hct 38.1 % (37-47) 10/10/17 Hgb 13.3 g/dl (12.0-15.0) 10/10/17 Rubella IgG Antibody 290.4 IU/mL 08/13/17 RPR NONREACTIVE (NONREACTIVE) 08/13/17 Hep Bs Antigen Negative (Negative) 08/13/17 Chlam trachomat DNA PCR Negative (Negative) 08/13/17 N.gonorrhoeae DNA (PCR) Negative (Negative) 08/13/17 Glucose 1 Hr 50 gm 122 mg/dL (70-140) 08/13/17 Miscellaneous Test 11/05/17 Details: HIV: Urine Culture: Sequential Screen: NIPT Screen: Results [id number] Office Urine Glucose Negative Last Edit by Claudine Botello on 12/03/17 08:19 Office Urine Protein Negative Last Edit by Claudine Botello on 12/03/17 08:19 Assessment AND Plan Problems 1. Encounter for supervision of normal first in second trimester Z34.02 PRR KRISTINE 03/23/18 [place] 2. 24 weeks gestation of Z3A.24 MFM US ordered. echocardiogram-2 vessel cord, weekly NST at 32 weeks, growth US every 4 weeks. NIPT done, low risk, afp- negative. carrier screening declined. 3. Glomerulonephritis N05.9 MPGN with complete resolution- s/p mfm consult, recommend baby ASA, growth US in third trimester 4. Two vessel umbilical cord, antepartum, single gestation O09.899 following with mfm. growth us q 4 weeks, weekly nsts after 32. 5. Encounter for management of intrauterine contraceptive device (IUD), unspecified IUD management type Z30.431 Plan Orders placed: growth US is scheduled with MFM this week Plans mirena IUD at 6 wk pp visit Reviewed of labor precautions, movement/kick counts ACOG trimester education reviewed and updated See problem list details for updated plan of care Gestational age appropriate handout given RTO: 4 weeks Orders Orders: Plan Detail Goals Decrease pain and spasm Barriers Repetitive lifting Coding Level of Care Code OB Routine Diagnoses Encounter for supervision of normal first in second trimester Z34.02 Normal : normal first Trimester: second trimester 24 weeks gestation of Z3A.24 Weeks of gestation: 24 weeks Glomerulonephritis N05.9 Two vessel umbilical cord, antepartum, single gestation O09.899 Encounter for management of intrauterine contraceptive device (IUD), unspecified IUD management type Z30.431 Contraceptive encounter type: IUD management IUD management: unspecified 12/03/17 1535 <Electronically signed by Karyn GRALAND> Date Karyn GARLAND Cosigner Signature: Date (if applicable) CC: CHIROPRACTIC REPORT Observed: 11/19/2017 Status: F Source: [place] 9:15 AM [facility] [address] [place] [address] OFFICE VISIT Date of Service: 11/15/17 MR#: [id number] Acct: [id number] Name: PIA ROTHMAN Rep #: [id number] : 1990 Provider: Yamini Abraham D.C. Age/Sex: 26/F [place] [facility] [place]: Signed Intake Vital Signs11/15/17 Height 5 ft 2 in 11/15/17 Weight: 211 lb 11/15/17 Body Mass Index (BMI) 38.5 Intake Visit Reasons: back pain Chief Complaint: R sided low back pain Is patient in pain?: Yes Allergies No Known Allergies Allergy (Verified 11/05/17 09:56) Medications vitamin,calcium,roouxxkh-gfcc-sjfgg acid tablet 1 tab PO QDAY 08/13/17 [History Confirmed 11/05/17] aspirin 81 mg chewable tablet 81 mg PO DAILY 10/09/17 [History Confirmed 11/05/17] ranitidine 150 mg tablet 150 mg PO BID #60 tab 11/09/17 [Rx] PFSH Medical History Headaches, cluster (Acute) Heart murmur (Acute) Kidney disease (Acute) h/o apendectomy (Acute) osteoprosis (Acute) Surgical History History of tonsillectomy (Acute) kidney biopsy (Acute) Family History Other Arthritis Breast cancer COPD (chronic obstructive pulmonary disease) Colon cancer Heart disease Hypertension Melanoma Social History Smoking Status: Never smoker alcohol intake: current alcohol intake frequency: holidays/special occasions only Alcohol type: wine, hard liquor details: social substance use type: does not use caffeine: Yes what type of physical activity do you participate in: walking, running duration: 30-45 minutes/day seatbelt use: always do you feel safe at home: Yes 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 She states that her pain has increased leaving her with a tight and sharp ache that bands across the low back. Working, heavy lifting, bending, and twisting seem to cause increased pain with a sharp shooting radiating into the R leg. Her neck gets sore and achy on occasion. Pia denies any numbness, tingling, or radiculopathy. Location: R low back Duration: intermittent Aggravating or associated factors: frequent bending, lifting, and twisting Relieving factors: chiro and sitting Pain Quality: aching, dull, cramping, sharp, radiating Exam Musc General: Yes normal posture, normal gait and joint tenderness (C5, C6,L3, L5, R SI) Cervical Spine: loss of normal cervical lordosis (mild anterior head carriage), cervical ROM normal, cervical spasm ( L levator scap/upper trap), cervical muscular tenderness Thoracic/Lumbar Spine: thoracic and lumbar spine normal to inspection, pain with thoraco-lumbar ROM, thoraco-lumbar spasm on the right greater than left (lower lumbar), paraspinal tenderness on the right in the lower lumbar and in the mid lumbar and bilaterally in the upper thoracic Sacroiliac joints: on the left Sacrum: tenderness Office Procedures Chiropractic Treatments Procedures Manipulation: 3-4 regions (C6,L3, R sacrum, LIL) Assessment AND Plan 1. Segmental and somatic dysfunction of pelvic region M99.05 Orders Orders: 2. Segmental and somatic dysfunction of sacral region M99.04 Orders Orders: 3. Segmental and somatic dysfunction of cervical region M99.01 Orders Orders: 4. Segmental and somatic dysfunction of lumbar region M99.03 Orders Orders: Plan Detail Other Orders Orders: Goals Decrease pain and spasm Barriers Repetitive lifting Follow Up 2 Weeks Coding Level of Care Code No Charge Diagnoses Segmental and somatic dysfunction of pelvic region M99.05 Segmental and somatic dysfunction of sacral region M99.04 Segmental and somatic dysfunction of cervical region M99.01 Segmental and somatic dysfunction of lumbar region M99.03 Additional Codes Procedures - Manipulation: 3-4 regions ([id number]) 11/19/17 0915 <Electronically signed by Yamini Abraham D.C.> Date Yamini Abraham D.C. Cosigner Signature: Date (if applicable) CC: CHIROPRACTIC REPORT Observed: 11/06/2017 Status: F Source: [place] 9:28 AM [facility] [address] [place] [id number] OFFICE VISIT Date of Service: 11/06/17 MR#: [id number] Acct: [id number] Name: PIA ROTHMAN Rep #: [id number] : 1990 Provider: Yamini Abraham D.C. Age/Sex: 26/F [place] [facility] Status: Signed Intake Vital Signs11/06/17 Height 5 ft 2 in 11/06/17 Weight: 211 lb 11/06/17 Body Mass Index (BMI) 38.5 Intake Visit Reasons: back pain Is patient in pain?: Yes Allergies No Known Allergies Allergy (Verified 11/05/17 09:56) Medications vitamin,calcium,pyxhzukb-xuce-jquzz acid tablet 1 tab PO QDAY 08/13/17 [History Confirmed 11/05/17] aspirin 81 mg chewable tablet 81 mg PO DAILY 10/09/17 [History Confirmed 11/05/17] [facility] Medical History Headaches, cluster (Acute) Heart murmur (Acute) Kidney disease (Acute) h/o apendectomy (Acute) osteoprosis (Acute) Surgical History History of tonsillectomy (Acute) kidney biopsy (Acute) Family History Other Arthritis Breast cancer COPD (chronic obstructive pulmonary disease) Colon cancer Heart disease Hypertension Melanoma Social History Smoking Status: Never smoker alcohol intake: current alcohol intake frequency: holidays/special occasions only Alcohol type: wine, hard liquor details: social substance use type: does not use caffeine: Yes what type of physical activity do you participate in: walking, running duration: 30-45 minutes/day seatbelt use: always do you feel safe at home: Yes 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 She states that her neck pain is minimal leaving her with only a dull ache after working a long shift. Today Anne Marie rates her pain a 3/10, she states that her low back pain does come and go, although after exerting herself and doing frequent bending and lifting the pain does increase radiating into the legs. While driving a long distance her pain did not increase due to frequent stops, although at night her back becomes painful. Pia denies any numbness or tingling. Location: low back Duration: intermittent Aggravating or associated factors: exertion and lifting Relieving factors: chiro Pain Quality: aching, dull, cramping Exam Musc General: Yes normal posture, normal gait and joint tenderness (L3, L5, R SI) Cervical Spine: loss of normal cervical lordosis (mild anterior head carriage), cervical ROM normal, cervical spasm ( L levator scap/upper trap), cervical muscular tenderness Thoracic/Lumbar Spine: thoracic and lumbar spine normal to inspection, pain with thoraco-lumbar ROM, thoraco-lumbar spasm on the right in the lower lumbar and in the mid lumbar, paraspinal tenderness on the right greater than left (L2-L5) Sacroiliac joints: on the left Sacrum: tenderness on the right Office Procedures Chiropractic Treatments Procedures Manipulation: 3-4 regions (L3, R sacrum, LIL) Assessment AND Plan 1. Segmental and somatic dysfunction of lumbar region M99.03 Orders Orders: 2. Segmental and somatic dysfunction of sacral region M99.04 3. Segmental and somatic dysfunction of pelvic region M99.05 Plan Detail Other Orders Orders: Goals Decrease pain and spasm Barriers Repetitive lifting Follow Up 1 x week Coding Level of Care Code No Charge Diagnoses Segmental and somatic dysfunction of lumbar region M99.03 Segmental and somatic dysfunction of sacral region M99.04 Segmental and somatic dysfunction of pelvic region M99.05 Additional Codes Procedures - Manipulation: 3-4 regions (03009) 11/06/17 0928 <Electronically signed by Yamini Abraham D.C.> Date Yamini Abraham D.C. Cosigner Signature: Date (if applicable) CC: MISCELLANEOUS LAB Collected: 11/05/2017 Status: F Source: [place] PROCEDURE 10:46 AM [facility] REPOSITORY Order Comment: Comments: [id number] msAFP GEL BARRIER TUBE RT Test(s) Ordered: [id number] msAFP GEL BARRIER TUBE RT TYPE CODE TESTS RESULT OUT OF RANGE REFERENCE UNITS LAB L801.1541 Normal [facility] LAB TEST Result Comment: TEST RESULT UNITS REFERENCE INTERVAL AFP, Serum, Open Spina Bifida Results Report Test Results: *Screen Negative* Gest. Age on Collection Date 20.3 weeks Gestat. Age Based On LMP Recalculations are not recommended when gestational dating by LMP and ultrasound are within 10 days. [age]STINE [age] Race Weight 211 lbs Insulin Dep Diabetes No Multiple Gestation No AFP Value 30.3 ng/mL AFP MoM 0.64 OSBR Risk 1 [place] [id number] Interpretation Interpretation: Screen Negative This result is screen negative for OSB. The AFP MoM calculated is based on the gestational age provided. MS-AFP can identify up to 80% of open neural tube defects. Closed neural tube defects and some open defects may not be detected by this test. This test does not screen for Down Syndrome or Trisomy 18. If screening for Down Syndrome or Trisomy 18 is desired, contact Genetic Customer Services to discuss available options. The [place] [employer] recommends amniocentesis be offered to women age 35 and older. Comment: Ysabel Luis, Ph.D., [facility] Principal Genetics Bag Shop Worker References: Available Upon Request. Multiples Of Median Cutoffs Iglesias 2.5 Black 2.8 IDD 2.0 Twins 4.5 Abbreviation Definitions IDD - Insulin Dep Diabetes OSBR - Open Spina Bifida Risk For further inquiries contact [facility] Services at [phone]. TESTING PERFORMED AT [facility]. ORIGINAL REPORT ON FILE IN LAB CONTAINS ADDITIONAL TEST SITE INFORMATION. Performed By: #### L801.1541 #### [place] [facility] [address] [place], [address] OPERATOR [employer]TR[employer] OFFICE VISIT Observed: 11/05/2017 Status: F Source: [place] REPORT 10:23 AM [facility] [address] [place] [address] OFFICE VISIT Date of Service: 11/05/17 MR#: [id number] Acct: [id number] Name: PIA ROTHMAN Rep #: [id number] : 1990 Provider: Shweta Dyson MD Age/Sex: 26/F [place] [facility] [place]: Signed Intake Vital Signs11/05/17 Height 5 ft 2 in 11/05/17 Weight: 211 lb 11/05/17 Body Mass Index (BMI) 38.5 11/05/17 Blood Pressure 124/80 H Intake Visit Reasons: 20 weeks Accompanied by: Allergies No Known Allergies Allergy (Verified 11/05/17 09:56) Medications vitamin,calcium,jqvidfax-petp-krssw acid tablet 1 tab PO QDAY 08/13/17 [History Confirmed 11/05/17] aspirin 81 mg chewable tablet 81 mg PO DAILY 10/09/17 [History Confirmed 11/05/17] Last Menstral Period: 06/16/17 Zika: Zika virus screening: Negative : No PFSH PFSH Medical History Headaches, cluster (Acute) Heart murmur (Acute) Kidney disease (Acute) h/o apendectomy (Acute) osteoprosis (Acute) Surgical History History of tonsillectomy (Acute) kidney biopsy (Acute) Family History Other Arthritis Breast cancer COPD (chronic obstructive pulmonary disease) Colon cancer Heart disease Hypertension Melanoma Social History Smoking Status: Never smoker alcohol intake: current alcohol intake frequency: holidays/special occasions only Alcohol type: wine, hard liquor details: social substance use type: does not use caffeine: Yes what type of physical activity do you participate in: walking, running duration: 30-45 minutes/day seatbelt use: always do you feel safe at home: Yes 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 ACOG First Trimester First Trimester: Desire for , Alcohol, Tobacco Cessation, Illicit/Recreational Drug/Substance Use, Intimate Partner Violence, Barriers to care, Unstable Housing, Communication Barriers, Environmental/Work Hazards, Anticipated Course of Care, Toxoplasmosis Precations, Sexual activity, Exercise, Dental Care, Sauna/Hot tub use, Seat Belt use, Childbirth classes/Hospital facilities, , Travel, Indications for US and Screening for Aneuploidy; discussed Use of Any medications Diagnostics Diagnostics Labs Blood Type O POSITIVE 08/13/17 Antibody Screen NEGATIVE 08/13/17 Hct 38.1 % (37-47) 10/10/17 Hgb 13.3 g/dl (12.0-15.0) 10/10/17 Rubella IgG Antibody 290.4 IU/mL 08/13/17 RPR NONREACTIVE (NONREACTIVE) 08/13/17 Hep Bs Antigen Negative (Negative) 08/13/17 Chlam trachomat DNA PCR Negative (Negative) 08/13/17 N.gonorrhoeae DNA (PCR) Negative (Negative) 08/13/17 Glucose 1 Hr 50 gm 122 mg/dL (70-140) 08/13/17 Miscellaneous Test 09/11/17 Details: HIV: Urine Culture: Sequential Screen: NIPT Screen: Results [id number] Office Urine Glucose Negative Last Edit by Claudine Botello on 11/05/17 10:00 Office Urine Protein Negative Last Edit by Claudine Botello on 11/05/17 10:00 Assessment AND Plan Problems 1. 20 weeks gestation of Z3A.20 MFM US ordered NIPT done, low risk, afp ordered. carrier screening declined. 2. Encounter for supervision of normal first in second trimester Z34.02 PRR KRISTINE 03/23/18 Leonides 3. Glomerulonephritis N05.9 MPGN with complete resolution- s/p mfm consult, recommend baby ASA, growth US in third trimester 4. Two vessel umbilical cord, antepartum, single gestation O09.899 following with mfm. growth us q 4 weeks, weekly nsts after 32. Plan ACOG trimester education reviewed and updated. see problem list details for updated plan management information and see below for orders placed at this visit. GA appropriate handout given. Orders Orders: Plan Detail Goals Decrease pain and spasm Barriers Repetitive lifting Coding Level of Care Code OB Routine Diagnoses 20 weeks gestation of Z3A.20 Weeks of gestation: 20 weeks Encounter for supervision of normal first in second trimester Z34.02 Normal : normal first Trimester: second trimester Glomerulonephritis N05.9 Two vessel umbilical cord, antepartum, single gestation O09.899 11/05/17 1023 <Electronically signed by Shweta Dyson MD> Date Shweta Dyson MD Cosigner Signature: Date (if applicable) CC: CHIROPRACTIC REPORT Observed: 10/24/2017 Status: F Source: [place] 8:51 AM [facility] [address] [place], [place] [id number] OFFICE VISIT Date of Service: 10/24/17 MR#: [id number] Acct: [id number] Name: PIA ROTHMAN Rep #: [id number] : 1990 Provider: Yamini Abraham D.C. Age/Sex: 26/F [place] [facility] [place]: Signed Intake Vital Signs10/24/17 Height 5 ft 2 in 10/24/17 Weight: 206 lb 10/24/17 Body Mass Index (BMI) 37.6 Intake Visit Reasons: Back pain Is patient in pain?: Yes Allergies No Known Allergies Allergy (Verified 10/09/17 08:23) Medications vitamin,calcium,evynuudg-dbga-qewww acid tablet 1 tab PO QDAY 08/13/17 [History Confirmed 10/09/17] aspirin 81 mg chewable tablet 81 mg PO DAILY 10/09/17 [History Confirmed 10/09/17] PFSH Medical History Headaches, cluster (Acute) Heart murmur (Acute) Kidney disease (Acute) h/o apendectomy (Acute) osteoprosis (Acute) Surgical History History of tonsillectomy (Acute) kidney biopsy (Acute) Family History Other Arthritis Breast cancer COPD (chronic obstructive pulmonary disease) Colon cancer Heart disease Hypertension Melanoma Social History Smoking Status: Never smoker alcohol intake: current alcohol intake frequency: holidays/special occasions only Alcohol type: wine, hard liquor details: social substance use type: does not use caffeine: Yes what type of physical activity do you participate in: walking, running duration: 30-45 minutes/day seatbelt use: always do you feel safe at home: Yes 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 She states that after her last adjustment she has no longer experienced any neck pain, although her low back pain does still come and go. Today Pia rates her pain a 3/10 and describes it as a sore ache that bands across the low back. Prolonged standing, bending, lifting, and twisting all still cause increased pain, at times the pain will radiate into the R leg. Pia denies any numbness or tingling. Location: R sided low back pain Duration: intermittent Aggravating or associated factors: bending, lifting, prolonged standing and twisting Relieving factors: chiro and sitting Pain Quality: aching, dull, cramping, sharp, radiating Exam Musc General: Yes normal posture, normal gait and joint tenderness (C2, C4, C5, T2, T6, L3, L5) Cervical Spine: loss of normal cervical lordosis (mild anterior head carriage), cervical ROM normal, cervical spasm ( L levator scap/upper trap), cervical muscular tenderness bilateral lower: trapezius Thoracic/Lumbar Spine: thoracic and lumbar spine normal to inspection, pain with thoraco-lumbar ROM with forward flexion (slightly improved), thoraco-lumbar spasm bilaterally in the lower lumbar (QL), paraspinal tenderness on the right greater than left (lumbar) Sacroiliac joints: bilaterally Sacrum: tenderness on the right Office Procedures Chiropractic Treatments Procedures Manipulation: 3-4 regions (C2,C5, T2, T6, L3, L5) Assessment AND Plan 1. Segmental and somatic dysfunction of sacral region M99.04 Orders Orders: 2. Segmental and somatic dysfunction of thoracic region M99.02 Orders Orders: 3. Segmental and somatic dysfunction of cervical region M99.01 Orders Orders: 4. Segmental and somatic dysfunction of lumbar region M99.03 Orders Orders: Plan Detail Goals Decrease pain and spasm Barriers Repetitive lifting Follow Up 1 x week Coding Level of Care Code No Charge Diagnoses Segmental and somatic dysfunction of sacral region M99.04 Segmental and somatic dysfunction of thoracic region M99.02 Segmental and somatic dysfunction of cervical region M99.01 Segmental and somatic dysfunction of lumbar region M99.03 Additional Codes Procedures - Manipulation: 3-4 regions (62784) 10/24/17 0851 <Electronically signed by Yamini Abraham D.C.> Date Yamini Abraham D.C. Cosigner Signature: Date (if applicable) CC: CHIROPRACTIC REPORT Observed: 10/17/2017 Status: F Source: [place] 9:40 AM [facility] [address] [place] [address] OFFICE VISIT Date of Service: 10/16/17 MR#: [id number] Acct: [id number] Name: PIA ROTHMAN Venkat Rep #: [id number] : 1990 Provider: Yamini Abraham D.C. Age/Sex: 26/F [place] [facility] [place]: Signed Intake Vital Signs10/16/17 Height 5 ft 2 in 10/16/17 Weight: 206 lb 10/16/17 Body Mass Index (BMI) 37.6 Intake Visit Reasons: back pain Is patient in pain?: Yes Allergies No Known Allergies Allergy (Verified 10/09/17 08:23) Medications vitamin,calcium,gpcvofqi-xkbj-eylwv acid tablet 1 tab PO QDAY 08/13/17 [History Confirmed 10/09/17] aspirin 81 mg chewable tablet 81 mg PO DAILY 10/09/17 [History Confirmed 10/09/17] PFSH Medical History Headaches, cluster (Acute) Heart murmur (Acute) Kidney disease (Acute) h/o apendectomy (Acute) osteoprosis (Acute) Surgical History History of tonsillectomy (Acute) kidney biopsy (Acute) Family History Other Arthritis Breast cancer COPD (chronic obstructive pulmonary disease) Colon cancer Heart disease Hypertension Melanoma Social History Smoking Status: Never smoker alcohol intake: current alcohol intake frequency: holidays/special occasions only Alcohol type: wine, hard liquor details: social substance use type: does not use caffeine: Yes what type of physical activity do you participate in: walking, running duration: 30-45 minutes/day seatbelt use: always do you feel safe at home: Yes 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 She states that roughly one month ago she began experiencing R sided low back pain. The pain is described as a tight and sharp shooting pain that does radiate into the upper thigh. Today Pia rates her pain a 4/10 and describes it as a deep ache that increases with sudden movement, bending and lifting. Pia denies any numbness, tingling, or radiculopathy. Location: R sided low back pain Duration: intermittent Aggravating or associated factors: sudden movements and bending, lifting Relieving factors: chiro Pain Quality: aching, dull, cramping, radiating Exam Musc General: Yes normal posture, normal gait and joint tenderness (C2, C4, C5, T2, T6, L3, L5) Cervical Spine: loss of normal cervical lordosis (mild anterior head carriage), cervical ROM normal, cervical spasm ( L levator scap/upper trap), cervical muscular tenderness bilateral lower: trapezius Thoracic/Lumbar Spine: thoracic and lumbar spine normal to inspection, pain with thoraco-lumbar ROM with forward flexion (slightly improved), thoraco-lumbar spasm bilaterally in the lower lumbar (QL), paraspinal tenderness on the right greater than left (lumbar) Sacroiliac joints: bilaterally Sacrum: tenderness on the right Office Procedures Chiropractic Treatments Procedures Manipulation: 3-4 regions (C2, C5, T2, L3, R sacrum) Assessment AND Plan 1. Segmental and somatic dysfunction of thoracic region M99.02 Orders Orders: 2. Segmental and somatic dysfunction of cervical region M99.01 Orders Orders: 3. Segmental and somatic dysfunction of lumbar region M99.03 Orders Orders: 4. Segmental and somatic dysfunction of sacral region M99.04 Plan Recommend modified acute treatment plan: 2x/wk Plan Detail Goals Decrease pain and spasm Barriers Repetitive lifting Follow Up 1 x week Coding Level of Care Code No Charge Diagnoses Segmental and somatic dysfunction of thoracic region M99.02 Segmental and somatic dysfunction of cervical region M99.01 Segmental and somatic dysfunction of lumbar region M99.03 Segmental and somatic dysfunction of sacral region M99.04 Additional Codes Procedures - Manipulation: 3-4 regions (74241) 10/17/17 0940 <Electronically signed by Yamini Abraham D.C.> Date Yamini Abraham D.C. Cosigner Signature: Date (if applicable) CC: CBC-COMPLETE BLOOD CNT Collected: 10/10/2017 Status: F Source: [place] NO DIFF 8:14 AM [facility] [facility] REPOSITORY TYPE CODE TESTS RESULT OUT OF RANGE REFERENCE UNITS LAB L100.1000 4.4-11.0 K/mm3 Normal WBC 10.3 LAB L100.1200 4.2-5.4 M/mm3 Normal RBC 4.57 LAB L100.1300 12.0-15.0 g/dl Normal HGB 13.3 LAB L100.1400 37-47 % Normal HCT 38.1 LAB L100.1500 81-99 fL Normal MCV 83.4 LAB L100.1600 27.0-32.0 pg Normal MCH 29.1 LAB L100.1700 32-36 g/gl Normal MCHC 34.9 LAB L100.1810 11.6-14.6 % Normal RDW CV 13.3 LAB L100.1820 35.1-43.9 fl Normal RDW SD 39.6 LAB L100.1900 150-450 K/mm3 Normal PLT 205 LAB L100.2000 6.2-12.0 fl Normal MPV 10.2 Performed By: #### L100.0500 #### [facility] [address] [place], [address] RENAL PROFILE Collected: 10/10/2017 Status: F Source: [place] 8:14 AM [facility] REPOSITORY TYPE CODE TESTS RESULT OUT OF RANGE REFERENCE UNITS LAB L501.0100 74-106 mg/dL High GLU 111 Result Comment: Fasting Glucose result from 100 to 125 mg/dL suggests IMPAIRED HOMEOSTASIS per A.D.A. criteria. Please note revised GLUCOSE reference range effective 2017. LAB L501.1000 7-18 mg/dL Low BUN 5 LAB L501.1100 0.55-1.02 mg/dL Normal CREAT,SERUM 0.66 Result Comment: The validity of the calculated GFR AND GFRAA in patients over 70 years has not been determined. Clinical correlation is essential. LAB L501.1110 >60 mL/min Normal EST GFR 115 Result Comment: Non- GFR Calc LAB L501.1115 >60 mL/min Normal EST GFR - AA 139 Result Comment: GFR Calc LAB L501.1300 10-20 RATIO Low BUN/CRE 7.6 LAB L501.1800 3.2-5.0 g/dL Low ALB 2.8 LAB L501.2200 8.5-10.1 mg/dL Low CA 8.4 LAB L501.2300 2.5-4.9 mg/dL Normal PHOS 3.2 LAB L501.5300 136-145 mmol/L Normal NA 141 LAB L501.5600 3.5-5.1 mmol/L Normal K 3.6 LAB L501.5900 98-107 mmol/L Normal CL 106 LAB L501.6100 21.0-32.0 mmol/L Normal CO2 24.0 Performed By: #### L500.3600, L501.5200 #### [facility] [address] [place], [address] MAGNESIUM Collected: 10/10/2017 Status: F Source: [place] 8:14 AM [facility] REPOSITORY TYPE CODE TESTS RESULT OUT OF RANGE REFERENCE UNITS LAB L501.5200 1.6-2.6 mg/dL Normal MG 1.8 Performed By: #### L500.3600, L501.5200 #### [facility] [address] [place], [address] MICROALB:CREAT Collected: 10/10/2017 Status: F Source: [place] RATIO,RANDOM UR 8:14 AM [facility] REPOSITORY TYPE CODE TESTS RESULT OUT OF RANGE REFERENCE UNITS LAB L501.1200 NO RANGE EST. mg/dL Normal UR CREAT 211.00 LAB L502.0500 NO RANGE EST. mg/L Normal 20.1 MICROALBUMIN ,UR LAB L502.0600 <30 mg/g CRE mg/g CRE Normal 9.5 MALB:CREAT Performed By: #### L502.0250 #### [facility] [address] [place], [address] OPERATOR [employer] OFFICE VISIT Observed: 10/09/2017 Status: F Source: [place] REPORT 9:17 AM [facility] REPOSITORY [facility] [address] [place] [address] OFFICE VISIT Date of Service: 10/09/17 MR#: [id number] Acct: [id number] Name: PIA ROTHMAN Rep #: [id number] : 1990 Provider: FLORENTINO Brewer Age/Sex: 26/F [place] [facility] [place]: Signed Intake Vital Signs10/09/17 Height 5 ft 2 in 10/09/17 Weight: 206 lb 8 oz 10/09/17 Body Mass Index (BMI) 37.8 10/09/17 Blood Pressure 114/65 Intake Visit Reasons: 16 weeks Family Protection Specialist Required: No Accompanied by: Is patient in pain?: No Allergies No Known Allergies Allergy (Verified 10/09/17 08:23) Medications vitamin,calcium,jrhfutgs-azsn-hizpa acid tablet 1 tab PO QDAY 08/13/17 [History Confirmed 10/09/17] aspirin 81 mg chewable tablet 81 mg PO DAILY 10/09/17 [History Confirmed 10/09/17] Last Menstral Period: 06/16/17 Zika: Zika virus screening: Negative : No PFSH PFSH Medical History Headaches, cluster (Acute) Heart murmur (Acute) Kidney disease (Acute) h/o apendectomy (Acute) osteoprosis (Acute) Surgical History History of tonsillectomy (Acute) kidney biopsy (Acute) Family History Other Arthritis Breast cancer COPD (chronic obstructive pulmonary disease) Colon cancer Heart disease Hypertension Melanoma Social History Smoking Status: Never smoker alcohol intake: current alcohol intake frequency: holidays/special occasions only Alcohol type: wine, hard liquor details: social substance use type: does not use caffeine: Yes what type of physical activity do you participate in: walking, running duration: 30-45 minutes/day seatbelt use: always do you feel safe at home: Yes 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 OB Visit KRISTINE Calculator Estimated Delivery Date 03/23/18 Based on LMP (certain) 06/16/17 Current WG 16w 3d Number 1 Expected Delivery Route/Plan Specific Issue/Plans flu vaccine: [] tdap vaccine: [] rhogam: [] LARC form signed: [] labor support person: Leonides pain management: epidural cut cord/dad catch: cord : yes PP control planned: [] special requests: [] Initial Weight: Not Recorded Date Weight BP Urine PrFHR FuHt Pres MoCTX DilationFetal StVisit NoProviderComments E ot v te [place] G Effac lucose ed Visit Notes Visit Date: 10/09/17 Doing well. No VB, LOF GILL Langley on 10/09/17 Visit Date: 09/11/17 feeling anxious Shweta Dyson MD on 09/11/17 Visit Date: 08/13/17 No visit notes to display ACOG First Trimester First Trimester: Desire for , Alcohol, Tobacco Cessation, Illicit/Recreational Drug/Substance Use, Intimate Partner Violence, Barriers to care, Unstable Housing, Communication Barriers, Environmental/Work Hazards, Anticipated Course of Care, Toxoplasmosis Precations, Sexual activity, Exercise, Dental Care, Sauna/Hot tub use, Seat Belt use, Childbirth classes/Hospital facilities, , Travel, Indications for US and Screening for Aneuploidy; discussed Use of Any medications Diagnostics Diagnostics Labs Blood Type O POSITIVE 08/13/17 Antibody Screen NEGATIVE 08/13/17 Hct 39.3 % (37-47) 08/13/17 Hgb 13.8 g/dl (12.0-15.0) 08/13/17 Rubella IgG Antibody 290.4 IU/mL 08/13/17 RPR NONREACTIVE (NONREACTIVE) 08/13/17 Hep Bs Antigen Negative (Negative) 08/13/17 Chlam trachomat DNA PCR Negative (Negative) 08/13/17 N.gonorrhoeae DNA (PCR) Negative (Negative) 08/13/17 Glucose 1 Hr 50 gm 122 mg/dL (70-140) 08/13/17 Miscellaneous Test 09/11/17 Details: HIV: Urine Culture: Sequential Screen: NIPT Screen: Results [id number] Office Urine Glucose Negative Last Edit by Pia Aguilar on 10/09/17 08:28 Office Urine Protein Negative Last Edit by Pia Aguilar on 10/09/17 08:28 Assessment AND Plan Problems 1. Encounter for supervision of normal first in first trimester Z34.01 PRR KRISTINE 03/23/18 Leonides 2. Glomerulonephritis N05.9 MPGN with complete resolution- s/p mfm consult, recommend baby ASA, growth US in third trimester 3. 16 weeks gestation of Z3A.16 MFM US ordered NIPT done, low risk 4. Segmental and somatic dysfunction of lumbar region M99.03 Plan Orders placed: anatomy US MFM OK for chiropractor, flexeril sparingly for sciatica pain Reviewed precautions, movement ACOG trimester education reviewed and updated See problem list details for updated plan of care Gestational age appropriate handout given RTO: 4 weeks Orders Orders: Plan Detail Goals Decrease pain and spasm Barriers Repetitive lifting Coding Level of Care Code OB Routine Diagnoses Encounter for supervision of normal first in first trimester Z34.01 Normal : normal first Trimester: first trimester Glomerulonephritis N05.9 16 weeks gestation of Z3A.16 Weeks of gestation: 16 weeks Segmental and somatic dysfunction of lumbar region M99.03 10/09/17 0917 <Electronically signed by Karyn GARLAND> Date Karyn GARLAND Cosigner Signature: Date (if applicable) CC: MISCELLANEOUS LAB Collected: 09/11/2017 Status: F Source: [place] PROCEDURE 9:37 AM [facility] REPOSITORY Order Comment: Comments: 2 SPECIAL TIGER TOPS Test(s) Ordered: PANORAMA SEND OUT TYPE CODE TESTS RESULT OUT OF RANGE REFERENCE UNITS LAB L801.1541 Normal [facility] LAB TEST Result Comment: Sent directly to testing facility per ordering physician. @ 09/17/17 1433 MYOUNG Performed By: #### L801.1541 #### [place] [facility] [address], [address] OPERATOR [employer] OFFICE VISIT Observed: 09/11/2017 Status: F Source: [place] REPORT 9:20 AM [facility] REPOSITORY [facility] [address] [place] [address] OFFICE VISIT Date of Service: 09/11/17 MR#: [id number] Acct: [id number] Name: PIA ROTHMAN Rep #: [id number] : 1990 Provider: Shweta Dyson MD Age/Sex: 26/F [place] [facility] Status: Signed Intake Vital Signs09/11/17 Height 5 ft 2 in 09/11/17 Weight: 207 lb 09/11/17 Body Mass Index (BMI) 37.8 09/11/17 Blood Pressure 105/63 Intake Visit Reasons: 12 weeks Family Protection Specialist Required: No Accompanied by: Is patient in pain?: No Allergies No Known Allergies Allergy (Verified 09/11/17 09:00) Medications vitamin,calcium,nfktqnmg-gglh-ajdtt acid tablet 1 tab PO QDAY 08/13/17 [History Confirmed 09/11/17] Last Menstral Period: 06/16/17 Zika: Zika virus screening: Negative : No PFSH PFSH Medical History Headaches, cluster (Acute) Heart murmur (Acute) Kidney disease (Acute) h/o apendectomy (Acute) osteoprosis (Acute) Surgical History History of tonsillectomy (Acute) kidney biopsy (Acute) Family History Other Arthritis Breast cancer COPD (chronic obstructive pulmonary disease) Colon cancer Heart disease Hypertension Melanoma Social History Smoking Status: Never smoker alcohol intake: current alcohol intake frequency: holidays/special occasions only Alcohol type: wine, hard liquor details: social substance use type: does not use caffeine: Yes what type of physical activity do you participate in: walking, running duration: 30-45 minutes/day seatbelt use: always do you feel safe at home: Yes 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 OB Visit KRISTINE Calculator Estimated Delivery Date 03/23/18 Based on LMP (certain) 06/16/17 Current WG 12w 3d Number 1 Expected Delivery Route/Plan Specific Issue/Plans flu vaccine: [] minichart given: [] tdap vaccine: [] rhogam: [] LARC form signed: [] labor support person: [] pain management: [] cut cord/dad catch: [] : [] PP control planned: [] special requests: [] Initial Weight: Not Recorded Date Weight BP Urine PrFHR FuHt Pres MoCTX DilationFetal StVisit NoProviderComments E ot v te [place] G Effac lucose ed Visit Notes Visit Date: 09/11/17 feeling anxious Shweta Dyson MD on 09/11/17 Visit Date: 08/13/17 No visit notes to display ACOG First Trimester First Trimester: Desire for , Alcohol, Tobacco Cessation, Illicit/Recreational Drug/Substance Use, Intimate Partner Violence, Barriers to care, Unstable Housing, Communication Barriers, Environmental/Work Hazards, Anticipated Course of Care, Toxoplasmosis Precations, Sexual activity, Exercise, Dental Care, Sauna/Hot tub use, Seat Belt use, Childbirth classes/Hospital facilities, , Travel, Indications for US and Screening for Aneuploidy; discussed Use of Any medications Diagnostics Diagnostics Labs Blood Type O POSITIVE 08/13/17 Antibody Screen NEGATIVE 08/13/17 Hct 39.3 % (37-47) 08/13/17 Hgb 13.8 g/dl (12.0-15.0) 08/13/17 Rubella IgG Antibody 290.4 IU/mL 08/13/17 RPR NONREACTIVE (NONREACTIVE) 08/13/17 Hep Bs Antigen Negative (Negative) 08/13/17 Chlam trachomat DNA PCR Negative (Negative) 08/13/17 N.gonorrhoeae DNA (PCR) Negative (Negative) 08/13/17 Glucose 1 Hr 50 gm 122 mg/dL (70-140) 08/13/17 Details: HIV: Urine Culture: Sequential Screen: NIPT Screen: Results [id number] Office Urine Glucose Negative Last Edit by Pia Aguilar on 09/11/17 09:05 Office Urine Protein Negative Last Edit by Pia Aguilar on 09/11/17 09:05 Assessment AND Plan Problems 1. Encounter for screening Z36.9 plans NIPT 2. Glomerulonephritis N05.9 MPGN with complete resolution- s/p mfm consult, recommend baby ASA, growth US in third trimester 3. Encounter for supervision of normal first in first trimester Z34.01 PRR KRISTINE 03/23/18 Leonides Plan ACOG trimester education reviewed and updated. see problem list details for updated plan management information and see below for orders placed at this visit. GA appropriate handout given. Orders Orders: Plan Detail Goals Decrease pain and spasm Barriers Repetitive lifting Coding Level of Care Code OB Routine Diagnoses Encounter for screening Z36.9 Glomerulonephritis N05.9 Encounter for supervision of normal first in first trimester Z34.01 Normal : normal first Trimester: first trimester 09/11/17 0920 <Electronically signed by Shweta Dyson MD> Date Shweta Dyson MD Cosigner Signature: Date (if applicable) CC: CT/NG [facility] BY PCR Collected: 08/13/2017 Status: F Source: [place] 6:04 PM [facility] REPOSITORY TYPE CODE TESTS RESULT OUT OF RANGE REFERENCE UNITS LAB L8200.2100 Negative Normal Chlam Negative Trac PCR LAB L8200.2200 Negative Normal NG by Negative PCR Performed By: #### L8200.1999, M100.0650 #### [facility] [address] [place], [address] Observed: 08/13/2017 Status: F Source: [place] CULTURE, URINE 6:04 PM [facility] REPOSITORY Urine Culture Culture exhibits no growth. Performed By: #### L8200.1999, M100.0650 #### [place] [facility] [address] [place], [id number] OPERATOR [employer] OFFICE VISIT Observed: 08/13/2017 Status: F Source: [place] REPORT 10:35 AM [facility] REPOSITORY [facility] [address] [place] [address] OFFICE VISIT Date of Service: 08/13/17 MR#: [id number] Acct: [id number] Name: PIA ROTHMAN Rep #: [id number] : 1990 Provider: Shweta Dyson MD Age/Sex: 26/F [place] [facility] [place]: Signed Intake Vital Signs08/13/17 Height 5 ft 2 in 08/13/17 Weight: 212 lb 08/13/17 Body Mass Index (BMI) 38.7 08/13/17 Blood Pressure 114/70 Intake Visit Reasons: NOB LMP 06/16 Chief Complaint: NEW OB Family Protection Specialist Required: No Is patient in pain?: No Allergies No Known Allergies Allergy (Verified 08/13/17 09:26) Medications vitamin,calcium,ojfqckhr-cykg-rfipo acid tablet 1 tab PO QDAY 08/13/17 [History Confirmed 08/13/17] Last Menstral Period: 06/16/17 Zika: Zika virus screening: Negative : No PFSH PFSH Medical History Headaches, cluster (Acute) Heart murmur (Acute) Kidney disease (Acute) h/o apendectomy (Acute) osteoprosis (Acute) Surgical History History of tonsillectomy (Acute) kidney biopsy (Acute) Family History Other Arthritis Breast cancer COPD (chronic obstructive pulmonary disease) Colon cancer Heart disease Hypertension Melanoma Social History Smoking Status: Never smoker alcohol intake: current alcohol intake frequency: holidays/special occasions only Alcohol type: wine, hard liquor details: social substance use type: does not use caffeine: Yes what type of physical activity do you participate in: walking, running duration: 30-45 minutes/day seatbelt use: always do you feel safe at home: Yes additional social history: Dimitry- Patient is a nurse on [employer] Pregancy History 1 Elective abortions Hx Para Spontaneous abortions HPI NOB LMP 06/16: Details: PIA ROTHMAN is a 26 year old who presents for New OB visit. OB Visit KRISTINE Calculator Estimated Delivery Date 03/23/18 Based on LMP (certain) 06/16/17 Current WG 8w 2d Number 1 Expected Delivery Route/Plan Specific Issue/Plans flu vaccine: [] minichart given: [] tdap vaccine: [] rhogam: [] LARC form signed: [] labor support person: [] pain management: [] cut cord/dad catch: [] : [] PP control planned: [] special requests: [] Initial Weight: Not Recorded Date Weight BP Urine PrFHR FuHt Pres MoCTX DilationFetal StVisit NoProviderComments E ot v te GA G Effac lucose ed Menstrual History Last Menstral Period: 06/16/17 Reported LMP: definite Normal amount/duration: Yes On hormonal BC at conception: No Antepartum Record Genetic Screening: Congenital Heart Defect: Other, Neural Tube Defect: Other, Hemoglobinopathy Or Carrier: Other, Cystic Fibrosis: Other, Chromosome Abnormality: Other, Akash-Sachs: Other, Hemophilia: Other, Intellectual Disability/Autism: Other, Recurrent Loss/Stillbirth: Other, Other Structural Defect: Other, Other Genetic Disease: Other, Maternal Metabolic Disorder: Other Infection History: Live with someone with TB or Exposed to TB: No, Patient or Partner has history of Genital Herpes: No, Rash or Viral illness since last mentrual period: No, Prior GBS-Infected child: No, History of STD: No, HIV Infection: No, History of Hepatitis: No, Recent travel outside of [place]: No, Concern for Hep exposure: No, Varicella immune: Yes Medical History Medical History: Negative: Diabetes, Hypertension, Heart disease, Auto-immune disorder, Kidney disease/UTI, Neurologic/epilepsy, Psychiatric, Depression/ depression, Hepatitis/liver disease, Varicosities/phlebitis, Thyroid dysfunction, Trauma/domestic violence, History of blood transfusions, D (Rh) Sensitized, Pulmonary (e.g.,TB,Asthma), Seasonal allergies, Drug/latex allergies/reactions, Breast, Hand Flatwork Finisher surgery, Operations/hospitalizations, Anesthetic complications, History of abnormal pap, Uterine anomaly/michael, Infertility, Anti-retroviral treatment, Relevant family history, Other ACOG First Trimester First Trimester: Desire for , Alcohol, Tobacco Cessation, Illicit/Recreational Drug/Substance Use, Intimate Partner Violence, Barriers to care, Unstable Housing, Communication Barriers, Environmental/Work Hazards, Anticipated Course of Care, Nurtrition and weight gain, Toxoplasmosis Precations, Sexual activity, Exercise, Dental Care, Sauna/Hot tub use, Seat Belt use, Childbirth classes/Hospital facilities, , Travel, Indications for US and Screening for Aneuploidy; discussed Use of Any medications ROS Const Denies fever(s), Reports system reviewed and no additional complaints, except as docu, Reports fatigue Eyes Reports system reviewed and no additional complaints, except as docu ENT Reports system reviewed and no additional complaints, except as docu Card Denies chest pain, Denies shortness of breath Resp Reports system reviewed and no additional complaints, except as docu, Denies shortness of breath, Denies cough GI Reports nausea, Denies abdominal pain Reports system reviewed and no additional complaints, except as docu Musc Reports system reviewed and no additional complaints, except as docu Skin/Breast Reports system reviewed and no additional complaints, except as docu Neuro Yes system reviewed and no additional complaints, except as docu Psych Reports system reviewed and no additional complaints, except as docu Endo Reports fatigue, Reports system reviewed and no additional complaints, except as docu Exam Const General: healthy appearing, comfortable, no acute distress Orientation: alert [facility] Head: normal to inspection, atraumatic, normocephalic Ears: external ears normal, hearing grossly normal bilaterally Nose: nares normal, external nose normal Mouth: oral mucosae normal Teeth and gingiva: dentition normal Eyes General: appearance normal, both eyes and all related structures Neck Neck: no lymphadenopathy, supple, normal visual inspection Thyroid: thyroid normal Resp Effort AND Inspection: normal respiratory effort GI Inspection: normal to inspection Palpation: soft, no hepatosplenomegaly General: bladder normal to palpation External Female Exam: normal external appearance, normal appearance of the urethra Urethra: normal appearance of the urethra Speculum Exam - Vagina: normal appearance of the vagina, normal vaginal discharge Speculum Exam - Cervix: normal appearance of the cervix Bimanual Exam- Vagina AND Uterus: bladder normal to palpation, normal bimanual exam, uterus non-tender, other Bimanual Exam- Adnexa, other: adnexae non-tender Skin General: no rashes or lesions noted Neuro Motor: muscle tone normal throughout, no movement abnormalities noted Extrem General: normal to inspection, full ROM Assessment AND Plan Problems 1. Glomerulonephritis N05.9 history of- check baseline labs and repeat q trimester 2. Encounter for supervision of normal first in first trimester Z34.01 KRISTINE 03/23/18 Leonides Plan Patient oriented to practice and discussed care expectations and screenings. ACOG book offered to patient. labs and 19-20 week anatomy ultrasound ordered. see problem list details for plan information. Genetic screening offered to patient and patient chose: NIPT screening Orders Orders: Plan Detail Goals Decrease pain and spasm Barriers Repetitive lifting Supplemental Info ACOG book given and patient encouraged to read about nutrition, exercise, weight gain, and food avoidance in . Coding Level of Care Code OB Routine Diagnoses Glomerulonephritis N05.9 Encounter for supervision of normal first in first trimester Z34.01 Normal : normal first Trimester: first trimester 08/13/17 1035 <Electronically signed by Shweta Dyson MD> Date Shweta Dyson MD Cosigner Signature: Date (if applicable) CC: CBC W/DIFF, AUTOMATED Collected: 08/13/2017 Status: F Source: [place] 10:25 AM [facility] REPOSITORY TYPE CODE TESTS RESULT OUT OF RANGE REFERENCE UNITS LAB L100.1000 4.4-11.0 K/mm3 Normal WBC 10.9 LAB L100.1200 4.2-5.4 M/mm3 Normal RBC 4.78 LAB L100.1300 12.0-15.0 g/dl Normal HGB 13.8 LAB L100.1400 37-47 % Normal HCT 39.3 LAB L100.1500 81-99 fL Normal MCV 82.2 LAB L100.1600 27.0-32.0 pg Normal MCH 28.9 LAB L100.1700 32-36 g/gl Normal MCHC 35.1 LAB L100.1810 11.6-14.6 % Normal RDW CV 12.8 LAB L100.1820 35.1-43.9 fl Normal RDW SD 37.8 LAB L100.1900 150-450 K/mm3 Normal PLT 226 LAB L100.2000 6.2-12.0 fl Normal MPV 10.3 LAB L100.2100 47-70 % High NEUT% 78.4 LAB L100.2200 19-41 % Low LY% 16.8 LAB L100.2300 0-10 % Normal MONO% 3.9 LAB L100.2400 0-5 % Normal EO% 0.6 LAB L100.2500 0-1 % Normal BASO% 0.1 LAB L100.2550 0.0-0.9 % Normal IM GRAN % 0.200 Result Comment: IG% - Immature Granulocytes (promyelocytes, myelocytes and metamyelocytes) > 1% indicates that a LEFT SHIFT is Present. LAB L100.2620 2.0-7.7 X10 3/uL High Absolute Neut 8.5 LAB L100.2720 0.83-4.51 X10 3/ul Normal Absolute Lymph 1.83 Performed By: #### L100.0100, B101.7450 #### [facility] [address] [place], [place], [address] TYPE AND SCREEN Collected: 08/13/2017 Status: F Source: [place] 10:25 AM [facility] REPOSITORY Order Comment: Reason for Type AND Screen/Red Cells: TYPE CODE TESTS RESULT OUT OF RANGE REFERENCE UNITS LAB B10.0800 O Normal BLOOD TYPE GEL POSITIVE LAB B100.4000 Normal Antibody NEGATIVE Screen Performed By: #### L100.0100, B101.7450 #### [facility] [address] [facility] [place], [address] COMPREHENSIVE METABOLIC Collected: 08/13/2017 Status: F Source: [facility] 10:25 AM [facility] REPOSITORY TYPE CODE TESTS RESULT OUT OF RANGE REFERENCE UNITS LAB L501.0100 74-106 mg/dL High GLU 122 Result Comment: Fasting Glucose result from 100 to 125 mg/dL suggests IMPAIRED HOMEOSTASIS per A.D.A. criteria. Please note revised GLUCOSE reference range effective 2017. LAB L501.1000 7-18 mg/dL Low BUN 5 LAB L501.1100 0.55-1.02 mg/dL Normal CREAT,SERUM 0.68 Result Comment: The validity of the calculated GFR AND GFRAA in patients over 70 years has not been determined. Clinical correlation is essential. LAB L501.1110 >60 mL/min Normal EST GFR 110 Result Comment: Non- GFR Calc LAB L501.1115 >60 mL/min Normal EST GFR - AA 133 Result Comment: GFR Calc LAB L501.1300 10-20 RATIO Low BUN/CRE 7.3 LAB L501.1500 6.4-8.2 g/dL Normal T PROT 7.2 LAB L501.1800 3.2-5.0 g/dL Normal ALB 3.3 LAB L501.1950 2.2-4.2 g/dL Normal GLOB 3.9 LAB L501.2000 0.9-2.4 RATIO Low A/G 0.8 LAB L501.2200 8.5-10.1 mg/dL Low CA 8.2 LAB L501.4100 15-37 U/L Normal AST 19 LAB L501.4305 45-117 U/L Normal ALK P 88 LAB L501.4405 13-56 U/L Normal ALT 30 LAB L501.4600 0.20-1.00 mg/dL Normal T BILI 0.50 LAB L501.5300 136-145 mmol/L Normal NA 140 LAB L501.5600 3.5-5.1 mmol/L Low K 3.4 LAB L501.5900 98-107 mmol/L Normal CL 107 LAB L501.6100 21.0-32.0 mmol/L Normal CO2 23.0 LAB L501.6200 5-15 Normal GAP 10 Performed By: #### L500.4050, L501.0250 #### [facility] [address] [place], [place], [address] GLUCOSE CHALLENGE GEST Collected: 08/13/2017 Status: F Source: [place] 1H 50G 10:25 AM [facility] REPOSITORY TYPE CODE TESTS RESULT OUT OF RANGE REFERENCE UNITS LAB L501.0250 70-140 mg/dL Normal GLU GEST 122 50g 1H Performed By: #### L500.4050, L501.0250 #### [facility] [address] [place], [place], [address] RUBELLA IGG Collected: 08/13/2017 Status: F Source: [place] 10:25 AM [facility] REPOSITORY TYPE CODE TESTS RESULT OUT OF RANGE REFERENCE UNITS LAB L509.4000 IU/mL Normal Rubella IgG 290.4 Result Comment: Antibody results Interpretation of Immune Status < 5 IU/ml Presumed Non-immune 5 - < 10 IU/ml Equivocal > or = 10 IU/ml Presumed Immune Performed By: #### L509.4000, L3890.6005, L700.5000 #### [facility] [address] [place], [address] #### L3100.0390, L7000.7000 #### [facility] (refer to report for specific site) refer to report for address and phone number HIV - [facility] Collected: 08/13/2017 Status: F Source: [place] 10:25 AM [facility] REPOSITORY TYPE CODE TESTS RESULT OUT OF RANGE REFERENCE UNITS LAB L3890.6005 Nonreactive Normal HIV - WC Non-Reactive Performed By: #### L509.4000, L3890.6005, L700.5000 #### [facility] [address] [place], [address] #### L3100.0390, L7000.7000 #### [facility] (refer to report for specific site) refer to report for address and phone number HEPATITIS B SURFACE Collected: 08/13/2017 Status: F Source: [place] AG 10:25 AM [facility] REPOSITORY TYPE CODE TESTS RESULT OUT OF RANGE REFERENCE UNITS LAB L3100.0400 Negative Normal HB Negative SURF AG Result Comment: Performed at: [facility] [address] [id number] Manager Enterprise: Dale Donohue MD, Phone: [phone] Performed at: [facility] [address] [id number] Manager Enterprise: Monster Conley PhD, Phone: [phone] Performed By: #### L509.4000, L3890.6005, L700.5000 #### [facility] [address] [place], [address] #### L3100.0390, L7000.7000 #### [facility] (refer to report for specific site) refer to report for address and phone number HEPATITIS C,RNA PCR Collected: 08/13/2017 Status: F Source: [place] VIRAL LOAD 10:25 AM [facility] REPOSITORY TYPE CODE TESTS RESULT OUT OF RANGE REFERENCE UNITS LAB L7000.7100 . IU/mL HCV Normal HCV Not Detected QT PCR LAB L7000.7350 . Test Normal HCV not performed log 10 LAB L7000.7500 . Normal TEST Comment INFO: Result Comment: The quantitative range of this assay is 15 IU/mL to 100 million IU/mL. Performed By: #### L509.4000, L3890.6005, L700.5000 #### [facility] [address] [facility] [place], [place], [address] #### L3100.0390, L7000.7000 #### [facility] (refer to report for specific site) refer to report for address and phone number RAPID PLASMIN REAGIN Collected: 08/13/2017 Status: F Source: [place] (RPR) 10:25 AM [facility] REPOSITORY TYPE CODE TESTS RESULT OUT OF REFERENCE UNITS RANGE LAB L700.5000 NONREACTIVE NONREACTIVE Normal RPR Performed By: #### L509.4000, L3890.6005, L700.5000 #### [facility] [address] [place] [address]. [place], [address] #### L3100.0390, L7000.7000 #### [facility] (refer to report for specific site) refer to report for address and phone number PAP I-G W/RFX Collected: 08/13/2017 Status: F Source: [place] HRHPV-APTIMA 8:30 AM [facility] REPOSITORY Order Comment: CYTOLOGY INFORMATION: - CLINICAL INFORMATION: - DATE LMP/MENOPAUSE: LMP/ 06/16/17 - COLLECTION VIAL: Thin Prep Vial - KILN PLACER SOURCE: CERVICAL - COLLECTION TECHNIQUE: BRUSH ONLY/ CERVIX BROOM ONLY Specimen Comment: [id number] Specimen Comment: No. of containers..01 ThinPrep Vial TYPE CODE TESTS RESULT OUT OF RANGE REFERENCE UNITS LAB L7400.0800 . Normal DIAGN Comment Result Comment: NEGATIVE FOR INTRAEPITHELIAL LESION AND MALIGNANCY. LAB L7400.0900 . Normal ADEQ Comment Result Comment: Satisfactory for evaluation. Endocervical and/or squamous metaplastic cells (endocervical component) are present. LAB L7400.1400 . Normal PERFORM Comment Result Comment: Carey Ye, Section Chief (ASCP) LAB L7400.2575 . Normal TEST METHOD Comment Result Comment: This liquid based ThinPrep(R) pap test was screened with the use of an image guided system. LAB L7400.2600 . Normal . COMM LAB L7400.2700 . Normal PAPSMR Comment Result Comment: The Pap smear is a screening test designed to aid in the detection of premalignant and malignant conditions of the uterine cervix. It is not a diagnostic procedure and should not be used as the sole means of detecting cervical cancer. Both false-positive and false-negative reports do occur. LAB L7400.2800 . Normal HPV RFLX Comment Result Comment: The HPV DNA reflex criteria were not met with this specimen result therefore, no HPV testing was performed. Performed at: - [facility] [id number] Manager Enterprise: Susie Mosqueda MD, Phone: [phone] Performed By: #### L7400.0353 #### [facility] (refer to report for specific site) refer to report for address and phone number MASSAGE THERAPY Observed: 05/28/2017 Status: F Source: [place] EVALUATION 8:14 PM [facility] REPOSITORY [facility] [address] [place], [place] [address] Fax REHABILITATION SERVICES INITIAL EVALUATION MR#: [id number] Acct: [id number] Name: PIA ROTHMAN Rep #: [id number] : 1990 26 From: Gretchen Wilhelm Referring DrMatt: Kirt Aguayo MD Status: REG RCR Insurance: [facility] SELF PAY INSURANCE Massage Therapy Evaluation: Initial Evaluation: Date: 04/10/17 Pt Name: Pia Rothman : [birth year] V#:[id number] Referring Phys: Dr. 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 Aguayo with the diagnosis of right low back pain. Today she presents with symptoms of pain that goes across her back and right sciatica pain that goes down her leg. The symptoms have been present for a few months. The symptoms commenced due to pulling her back at work and has not completely ever healed. Overall, her health is in good condition. Pia is currently taking contrave, pre camilo vitamins as medications. Objective: The first treatment consisted of an upper body massage and posterior legs. I focused on the paraspinals, upper trapezium, rhomboids, scalenes, ql,s, gluteus medius, sacral ligaments. Moderate-deep pressure was applied with trigger points and muscle stripping. Assessment: Muscle tension was very high with trigger points in the glutes, quadratus lumborum, and lumbar paraspinals on the right side. Patient reported feeling really good post the massage. I feel that the patient is a great candidate for massotherapy at this time. Plan: The plan of care was reviewed with the patient. The patient is to be seen in 2 weeks then on a regular basis for one hour sessions of massotherapy. <Electronically signed by Gretchen Wilhelm > 05/28/172013 CC: Kirt Aguayo MD LEV Signed For Medicare only, by signing this I certify the plan of care. Physicians Signature Date CBC, EMPLOYEE Collected: 05/24/2017 Status: F Source: [place] 8:42 AM [facility] REPOSITORY TYPE CODE TESTS RESULT OUT OF RANGE REFERENCE UNITS LAB L100.1000 4.4-11.0 K/mm3 Normal WBC 10.6 LAB L100.1200 4.2-5.4 M/mm3 Normal RBC 5.11 LAB L100.1300 12.0-15.0 g/dl Normal HGB 14.7 LAB L100.1400 37-47 % Normal HCT 42.8 LAB L100.1500 81-99 fL Normal MCV 83.8 LAB L100.1600 27.0-32.0 pg Normal MCH 28.8 LAB L100.1700 32-36 g/gl Normal MCHC 34.3 LAB L100.1810 11.6-14.6 % Normal RDW CV 12.9 LAB L100.1820 35.1-43.9 fl Normal RDW SD 39.3 LAB L100.1900 150-450 K/mm3 Normal PLT 287 LAB L100.2000 6.2-12.0 fl Normal MPV 10.2 LAB L100.2110 47-70 % Normal NEUT% 67.5 LAB L100.2210 19-41 % Normal LY% 25.1 LAB L100.2310 0-10 % Normal MONO% 4.9 LAB L100.2410 0-5 % Normal EO% 2.0 LAB L100.2510 0-1 % Normal BASO% 0.3 LAB L100.2620 2.0-7.7 X10 3/uL Normal Absolute Neut 7.2 LAB L100.2720 0.83-4.51 X10 3/ul Normal Absolute Lymph 2.66 Performed By: #### L100.0200 #### [facility] [address] [facility] [place], [place], [id number] NICOTINE URINE DRUG Collected: 05/24/2017 Status: F Source: [place] SCREEN 8:42 AM [facility] REPOSITORY TYPE CODE TESTS RESULT OUT OF RANGE REFERENCE UNITS LAB L505.6250 TO BE Normal CONFIRMED Result Comment: CONFIRMATORY TESTING FOR ALL POSITIVE URINE DRUG SCREEN RESULTS WILL ONLY BE SENT OUT UPON PHYSICIAN ORDER. The results of Urine Drug Screen methods provide only preliminary analytical test results. A more specific alternate chemical method must be used in order to obtain a confirmed analytical result. Gas chromatography/mass spectrometery (GC/MS) is the preferred confirmatory method. Clinical consideration and professional judgement should be applied to any drug of abuse test result, particularly when preliminary positive results are used. LAB L505.6270 <200 ng/mL Normal COT DRG Negative SCREEN Result Comment: Cotinine is the first-stage metabolite of Nicotine. Performed By: #### L505.6240 #### [facility] [address] [place], [place], [id number] URINALYSIS, EMPLOYEE Collected: 05/24/2017 Status: F Source: [place] 8:42 AM [facility] REPOSITORY TYPE CODE TESTS RESULT OUT OF RANGE REFERENCE UNITS LAB L400.3000 Yellow COLOR Normal Yellow LAB L400.3050 Clear Normal CLARITY Sl. Cloudy LAB L400.3200 Normal mg/dl Normal GLUCOSE, UR Normal LAB L400.3300 Negative mg/dL Normal BILIRUBIN URINE Negative LAB L400.3400 Negative mg/dl Normal KETONE UR Negative LAB L400.3465 1.002-1.030 Normal SP.GR. DIPSTX 1.025 LAB L400.3550 5.0 - 8.0 pH UR Normal 5.0 LAB L400.3600 Negative mg/dl High PROT 30 DIPSTX LAB L400.3700 Normal mg/dl Normal UROBILI Normal LAB L400.3750 Negative Normal NITRITE UR Negative LAB L400.3780 Negative /ul High OCCULT BLOOD-UR 150 LAB L400.3800 Negative /ul High LEUK 25 ESTERASE Performed By: #### L400.0100 #### [facility] [address] [place], [place], [address] EMPLOYEE PROFILE Collected: 05/24/2017 Status: F Source: [place] 8:42 AM [facility] REPOSITORY TYPE CODE TESTS RESULT OUT OF RANGE REFERENCE UNITS LAB L501.0100 74-106 mg/dL Normal GLU 80 Result Comment: Please note revised GLUCOSE reference range effective 2017. LAB L501.1000 7-18 mg/dL Normal BUN 8 LAB L501.1100 0.55-1.02 mg/dL Normal CREAT,SERUM 0.75 Result Comment: The validity of the calculated GFR AND GFRAA in patients over 70 years has not been determined. Clinical correlation is essential. LAB L501.1110 >60 mL/min Normal EST GFR 99 Result Comment: Non- GFR Calc LAB L501.1115 >60 mL/min Normal EST GFR - AA 120 Result Comment: GFR Calc LAB L501.1300 10-20 RATIO Normal BUN/CRE 10.7 LAB L501.1400 2.6-6.0 mg/dL Normal URIC 4.9 Result Comment: The drugs N-Acetylcysteine and Metamizole may falsely depress this assay. LAB L501.1500 6.4-8.2 g/dL Normal T PROT 7.5 LAB L501.1800 3.2-5.0 g/dL Normal ALB 3.4 LAB L501.1950 2.2-4.2 g/dL Normal GLOB 4.1 LAB L501.2000 0.9-2.4 RATIO Low A/G 0.8 LAB L501.2200 8.5-10.1 mg/dL Normal CA 8.5 LAB L501.2300 2.5-4.9 mg/dL Normal PHOS 2.6 LAB L501.4100 15-37 U/L Normal AST 24 LAB L501.4305 45-117 U/L Normal ALK P 115 LAB L501.4405 13-56 U/L Normal ALT 37 LAB L501.4600 0.20-1.00 mg/dL Normal T BILI 0.40 LAB L501.4700 0.00-0.30 mg/dL Normal D BILI 0.11 LAB L501.4900 200 mg/dL Normal CHOL 156 Result Comment: <200 mg/dL Desirable 200-240 mg/dL Borderline >240 mg/dL High Risk LAB L501.5000 mg/dL Normal TRIG 172 Result Comment: The drugs N-Acetylcysteine and Metamizole may falsely depress this assay. Serum Triglycerides Reference Interval Normal <150 mg/dL Borderline high 150 - 199 mg/dL High 200 - 499 mg/dL Very High > or = 500 mg/dL LAB L501.5300 136-145 mmol/L Normal NA 139 LAB L501.5600 3.5-5.1 mmol/L Normal K 3.9 LAB L501.5900 98-107 mmol/L Normal CL 104 LAB L501.6100 21.0-32.0 mmol/L Normal CO2 28.0 LAB L501.6200 5-15 Normal 7 GAP LAB L501.6400 mg/dL Low HDL 37 Result Comment: The drugs N-Acetylcysteine and Metamizole may falsely depress this assay. Reference Range HDL <40 mg/dL Low HDL Cholesterol HDL >or= 60 mg/dL High HDL Cholesterol LAB L501.6475 Normal CHOL:HDL 4.20 LAB L501.6500 0-130 mg/dL Normal LDL 85 LAB L501.6600 5-40 mg/dL Normal VLDL 34 LAB L504.2610 84-246 U/L Normal LDH 187 Performed By: #### L500.2900 #### [facility] [address] [place], [address] PROGRESS NOTE Observed: 03/26/2017 Status: COMPLETED Source: [place] 2:30 PM [facility] REPOSITORY Maternal Medicine Consult Date of Service: 03/26/2017 Referring Provider: Shweta Dyson Primary Care Provider: Sugey Wilkes MD Reason for Consult: Dr. Shweta Dyson requests that Pia be seen for a pre-conception consult due to a history of renal disease. Jm is a 26 y.o. who presents for a consultation to discuss her history of renal disease. 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 The patient has been following with Dr. Benjamin Evangelista from nephrology. The patient has completely recovered her renal function. 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 Past Surgical History: Procedure Laterality Date APPENDECTOMY KIDNEY BIOPSY 03/08/1999 KIDNEY BIOPSY 10/24/2005 KIDNEY BIOPSY TONSILLECTOMY No Known Allergies Social History Social History Marital status: Spouse name: N/A Number of children: N/A Years of education: N/A Social History Main Topics Smoking status: Never Smoker Smokeless tobacco: Never Used Alcohol use No Drug use: No Sexual activity: Yes Partners: Male Other Topics Concern None Social History Narrative None Infections Live with someone with or exposed to TB No Partner has hx of genital herpes No Rash or viral illness since last menstruation No History of STI's GC/Chlamyda 2nd STI 3rd STI Is there anything else we should know? No Other infections Genetics Age is > than 35y as of estimated date No Thalassemia No Neural Tube Defect No Congenital Heart Defect No Down Syndrome No Akash-Sachs No Daniel Disease No Sickle Cell Disease or Trait No Hemophilia, Thrombophilia No Muscular Dystrophy No Cystic Fibrosis No Dale's Chorea No Mental Retardation/Autism No Maternal Metabolic Disorder No Recurrent Loss, or a Stillbirth No Inherited Genetic or Chromosomal Disorder No Illicit; Rec.drugs; Alcohol since last menses No Family History Problem Relation Age of Onset Arthritis Mother Cancer Mother Skin Heart Attack Father 1 stent Heart Disease Father Hypertension Father High Cholesterol Father Elevated Lipids Father High Blood Pressure Father Stroke Father Cancer Father Skin and lung High Blood Pressure Maternal Grandfather Heart Disease Maternal Grandfather of massive heart attack Cancer Paternal Grandmother Breast Thyroid Disease Maternal Aunt Diabetes Neg Hx Kidney Disease Neg Hx Kidney Transplant Neg Hx Peritoneal Dialysis Dependent Neg Hx Hemodialysis Dependent Neg Hx Outpatient Encounter Prescriptions as of 03/26/2017 Medication Sig Dispense Refill Prenat w/o R-LL-Yrlxblz-FA-DHA (PNV-DHA PO) Take 1 Tab by mouth daily cyclobenzaprine (FLEXERIL) 10 MG tablet Take 10 mg by mouth as needed for Muscle spasms Acetaminophen (TYLENOL PO) Take 500 mg by mouth as needed Calcium Carbonate-Vit D-Min (CALCIUM 1200 PO) Take 2 Tabs by mouth daily. Albumin, Urine, Test STRP 1 Stick by Other route every 7 days. 100 Each 3 Multiple Vitamin (MULTIVITAMIN) tablet Take 1 Tab by mouth daily. IUD'S IU by Intrauterine route. No facility-administered encounter medications on file as of 03/26/2017. Review of Systems Physical Exam We discussed that since the patient has had full recovery of her renal function, the risk of complications during related to her renal disease is extremely low. Risks associated with renal disease in include but are not limited to worsening renal function that may or may not improve after , growth restriction, oligohydramnios, gestational hypertension, preeclampsia and delivery. As the patient is at an increased risk for preeclampsia, we recommend baseline preeclampsia labs during the first trimester and starting a baby aspirin daily at 12 weeks. We recommend following the fetus for growth by ultrasound. Assessment/Plan: 26 y.o. who presents for a pre-conception counseling visit: Active Non-Hospital Problems Diagnosis Date Noted Obesity 04/05/2017 Recommend no more than 11-20 lb weight gain in Recommend trying to obtain a normal BMI prior to Recommend 30 min of moderate exercise 5 times a week. 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 Start a baby Aspirin daily at 10-12 weeks gestation Serial growth ultrasounds Delivery at 39 weeks or sooner as clinically indicated. Recommend a MFM consult in the first trimestser MPGN, type 3 w/ chronic glomerulonephritis 03/08/1999 Follow up as clinically indicated. Dora Burgos MD Observed: 03/24/2017 Status: F Source: [place] URINE CULTURE 11:28 PM [facility] REPOSITORY Sp. Request/Comment: - Specimen received in preservative Culture Result - <10,000 CFU/ml Lactose positive gram negative bacilli --> ABNORMAL ALERT Insignificant colony count. No further workup. --> ABNORMAL ALERT 10,000 - <50,000 CFU/ml Normal urogenital parish Performed By: #### URCUL #### [facility] [address] [place] [address] PROGRESS Observed: 03/24/2017 Status: COMPLETED Source: [place] 3:07 PM [facility] REPOSITORY HNO ID: [id number] Author: Luz Julio Service: (none) Author Type: Nurse Practitioner Type: Progress Notes Filed: 03/24/2017 3:18 PM Note Text: Subjective The history is provided by the patient. No foreign language professor was used. HPI Pia Rothman is a 26 year old female who presents today for CC of frequency and odor with urination This started 2-3 days ago. She denies fever or back ache Symptoms are worsened by voiding She has tried no treatment or medication Risk factors sexually active, mirena recently removed and condom use PMH mebranel proliferative glomerulonehpritis, states last GFR was normal no labs available. 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 Genitourinary: Positive for dysuria and frequency. Negative for flank pain, hematuria and urgency. Skin: Negative for rash. Neurological: Negative for headaches. Objective Physical Exam Constitutional: She is oriented to person, place, and time and well-developed, well-nourished, and in no distress. HENT: Head: Normocephalic and atraumatic. Eyes: Conjunctivae and EOM are normal. Pupils are equal, round, and reactive to light. Neck: Normal range of motion. Neck supple. Pulmonary/Chest: Effort normal. Abdominal: Soft. There is no hepatosplenomegaly. There is generalized tenderness and tenderness in the suprapubic area. There is no rigidity, no rebound, no guarding, no CVA tenderness, no tenderness at McBurney's point and negative Peres's sign. Neurological: She is alert and oriented to person, place, and time. Skin: Skin is warm. Psychiatric: Affect normal. Nursing note and vitals reviewed. Component Latest Ref Rng AND Units 03/24/2017 Glucose, Urine Neg mg/dL neg Bilirubin, Urine Neg neg Ketones, Urine Neg trace Specific [place], Ur 1.005 - 1.030 1.005 Hemoglobin/Blood,Ur Neg large pH, Urine 4.5 - 8.0 5.0 Protein, Urine Neg mg/dL 30 Urobilinogen, Urine Normal (<1.1) EU 0.2 Nitrites Neg neg Leukocytes Neg neg Color/Appearance comment: yellow Quality Check yes/no Yes ASSESSMENT/PLAN: 1. Acute cystitis with hematuria - ICD9: 595.0, ICD10: N30.01 (primary diagnosis) -Urinary tract infection (UTI) We will send the urine for culture, which shows us what organism, if any, we are treating. If we need to change the antibiotic coverage, you will receive a call in 48-72 hours. * Seek medical care immediately, call 911, or go to ER if you have high fevers, severe flank or low back pain, blood in your urine. * Follow up with primary care provider if symptoms persist or worsen. 2. Urinary frequency - ICD9: 788.41, ICD10: R35.0 acute - UA positive for hematuria and proteinuria - Send urine for culture - Begin treatment with keflex for 7 days - Patient education for prevention given - UA DIP B/O - URINE CULTURE - CEPHALEXIN 500 MG CAPSULE Diagnosis and treatment plan were discussed and questions were answered to the patient's satisfaction. Pt acknowledged understanding of concepts and follow up plan. Specific signs and symptoms that would indicate the need for higher level of care were discussed in detail warranting prompt ER evaluation. Luz Julio CNP BASIC METABOLIC Collected: 03/22/2017 Status: F Source: [place] PROFILE (BMP) 7:45 AM [facility] REPOSITORY Order Comment: Order Date: 03/16/17 Order Info: 0667-1 - BMP TYPE CODE TESTS RESULT OUT OF RANGE REFERENCE UNITS LAB L501.0100 74-106 mg/dL Normal GLU 93 Result Comment: Please note revised GLUCOSE reference range effective 2017. LAB L501.1000 7-18 mg/dL Normal BUN 10 LAB L501.1100 0.55-1.02 mg/dL Normal CREAT,SERUM 0.71 Result Comment: The validity of the calculated GFR AND GFRAA in patients over 70 years has not been determined. Clinical correlation is essential. LAB L501.1110 >60 mL/min Normal EST GFR 105 Result Comment: Non- GFR Calc LAB L501.1115 >60 mL/min Normal EST GFR - AA 127 Result Comment: GFR Calc LAB L501.1300 10-20 RATIO Normal BUN/CRE 14.0 LAB L501.2200 8.5-10.1 mg/dL CA Normal 8.6 LAB L501.5300 136-145 mmol/L NA Normal 138 LAB L501.5600 3.5-5.1 mmol/L K Normal 4.0 LAB L501.5900 98-107 mmol/L CL Normal 103 LAB L501.6100 21.0-32.0 mmol/L Normal CO2 27.0 LAB L501.6200 5-15 Normal GAP 8 Performed By: #### L500.2500 #### [facility] [address] [place], [place], [address] CHIROPRACTIC REPORT Observed: 03/15/2017 Status: F Source: [place] 4:48 PM [facility] REPOSITORY [facility] [address] [place] [address] OFFICE VISIT Date of Service: 03/15/17 MR#: [id number] Acct: [id number] Name: PIA ROTHMAN Rep #: [id number] : 1990 Provider: Yamini Abraham D.C. Age/Sex: 26/F [place] [facility] [place]: Signed Intake Vital Signs03/15/17 Height 5 ft 1.5 in 03/15/17 Weight: 213 lb 03/15/17 Body Mass Index (BMI) 39.6 Intake Visit Reasons: neck pain Is patient in pain?: No Allergies No Known Allergies Allergy (Unverified 02/27/17 10:11) Medications cyclobenzaprine 10 mg tablet 10 mg PO Q8H 02/22/17 [History Confirmed 02/27/17] PFSH Medical History Headaches, cluster (Acute) Heart murmur (Acute) Kidney disease (Acute) h/o apendectomy (Acute) osteoprosis (Acute) Surgical History History of tonsillectomy (Acute) kidney biopsy (Acute) Family History Other Arthritis Breast cancer COPD (chronic obstructive pulmonary disease) Colon cancer Heart disease Hypertension Melanoma Social History Smoking Status: Never smoker alcohol intake: current alcohol intake frequency: holidays/special occasions only Alcohol type: wine, hard liquor details: social substance use type: does not use caffeine: Yes what type of physical activity do you participate in: walking, running duration: 30-45 minutes/day seatbelt use: always do you feel safe at home: Yes additional social history: 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 She states that since her last visit she has had little to no pain. today Pia rates her pain a 1/10 with slight achiness in the low back. Bending, lifting and transferring causes no pain. Pia denies any numbness or tingling. Location: neck and low back Duration: infrequent Aggravating or associated factors: working, standing Relieving factors: chiro Pain Quality: aching Exam Musc General: Yes normal posture, normal gait and joint tenderness (C2, C4, C5, T2, T6, L3, L5) Cervical Spine: loss of normal cervical lordosis (mild anterior head carriage), cervical ROM normal, cervical spasm ( L levator scap/upper trap) Thoracic/Lumbar Spine: thoracic and lumbar spine normal to inspection, pain with thoraco-lumbar ROM with forward flexion (slightly improved), thoraco-lumbar spasm bilaterally in the lower lumbar (QL) Sacroiliac joints: bilaterally Ortho Test CERVICAL Compression pain: Negative Distraction pain: relief Christopher's pain: Negative Valsalvas: Negative Shoulder depression pain: Negative THORACIC LUMBAR Kemps: Negative Valsalvas: Negative SLR: Negative Iliac Compression: Negative Office Procedures Chiropractic Treatments Procedures Manipulation: 3-4 regions (C6, T4, T8, L5) Electrical Stimulation: 15 mins Location: cerv/lumb Traction, Mechanical: Yes Details: Traction: thor/lumb, 15min Assessment AND Plan Problems 1. Segmental and somatic dysfunction of thoracic region M99.02 2. Segmental and somatic dysfunction of cervical region M99.01 3. Segmental and somatic dysfunction of lumbar region M99.03 Plan Transition patient to PRN due to positive response to therapy and symptom stabilization. Orders Orders: Plan Detail Goals Decrease pain and spasm Barriers Repetitive lifting Follow Up PRN Coding Level of Care Code Off vis,est,level 1 Diagnoses Segmental and somatic dysfunction of thoracic region M99.02 Segmental and somatic dysfunction of cervical region M99.01 Segmental and somatic dysfunction of lumbar region M99.03 Additional Codes Procedures - Manipulation: 3-4 regions (81824) Procedures - Electrical Stimulation: 15 mins (78626) Procedures - Traction, Mechanical: Yes (88097) 03/15/17 7423 <Electronically signed by Yamini Abraham D.C.> Date [facility]i [facility] Signature: Date (if applicable) CC: CHIROPRACTIC REPORT Observed: 03/12/2017 Status: F Source: [place] 2:25 PM [facility] [address] [place] [id number] OFFICE VISIT Date of Service: 03/08/17 MR#: [id number] Acct: [id number] Name: PIA ROTHMAN Rep #: [id number] : 1990 Provider: Yamini Abraham D.C. Age/Sex: 26/F [place] [facility] [place]: Signed Intake Vital Signs03/08/17 Height 5 ft 1.5 in 03/08/17 Weight: 213 lb 03/08/17 Body Mass Index (BMI) 39.6 Intake Visit Reasons: back pain Is patient in pain?: No Allergies No Known Allergies Allergy (Unverified 02/27/17 10:11) Medications cyclobenzaprine 10 mg tablet 10 mg PO Q8H 02/22/17 [History Confirmed 02/27/17] PFSH Medical History Headaches, cluster (Acute) Heart murmur (Acute) Kidney disease (Acute) h/o apendectomy (Acute) osteoprosis (Acute) Surgical History History of tonsillectomy (Acute) kidney biopsy (Acute) Family History Other Arthritis Breast cancer COPD (chronic obstructive pulmonary disease) Colon cancer Heart disease Hypertension Melanoma Social History Smoking Status: Never smoker alcohol intake: current alcohol intake frequency: holidays/special occasions only Alcohol type: wine, hard liquor details: social substance use type: does not use caffeine: Yes what type of physical activity do you participate in: walking, running duration: 30-45 minutes/day seatbelt use: always do you feel safe at home: Yes additional social 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 After the last adjustment, she experienced relief in both her neck and low back. Her headaches have since subsided. She gets tightness in her low back with prolonged standing/walking/lifting. No indication of radiculopathy. Location: neck/LB Duration: infrequent Aggravating or associated factors: standing, lifting Relieving factors: chiro Pain Quality: dull, aching Exam Musc General: Yes normal posture, normal gait, joint tenderness (C2, C4, C5, T2, T6, L3, L5) and decreased ROM Cervical Spine: loss of normal cervical lordosis (mild anterior head carriage), cervical ROM normal, pain with cervical ROM with lateral flexion to right and with lateral flexion to left, cervical spasm (R suboccipital, L levator scap/upper trap) Thoracic/Lumbar Spine: thoracic and lumbar spine normal to inspection, pain with thoraco-lumbar ROM with forward flexion, thoraco-lumbar spasm on the left in the upper thoracic (lower trap/rhomboid) and bilaterally in the lower lumbar (QL) Sacroiliac joints: bilaterally Office Procedures Chiropractic Treatments Procedures Manipulation: 3-4 regions (C2, C6, T5, L3, L5) Electrical Stimulation: 15 mins Location: thor/lumb Traction, Mechanical: Yes Details: Traction: thor/lumb, 15 Assessment AND Plan Problems 1. Segmental and somatic dysfunction of thoracic region M99.02 2. Acute bilateral low back pain without sciatica M54.5 3. Segmental and somatic dysfunction of cervical region M99.01 4. Segmental and somatic dysfunction of lumbar region M99.03 Plan Continue acute treatment plan. Orders Orders: Plan Detail Goals Decrease pain and spasm Barriers Repetitive lifting Follow Up 2 Days (per week) Coding Level of Care Code No Charge Diagnoses Segmental and somatic dysfunction of thoracic region M99.02 Acute bilateral low back pain without sciatica M54.5 Back pain location: low back pain Chronicity: acute Back pain laterality: bilateral Sciatica presence: without sciatica Segmental and somatic dysfunction of cervical region M99.01 Segmental and somatic dysfunction of lumbar region M99.03 Additional Codes Procedures - Manipulation: 3-4 regions (74679) Procedures - Electrical Stimulation: 15 mins (70510) Procedures - Traction, Mechanical: Yes (12451) 03/12/17 1425 <Electronically signed by Yamini Abraham D.C.> Date Yamini Abarham D.C. Cosigner Signature: Date (if applicable) CC: CHIROPRACTIC REPORT Observed: 03/12/2017 Status: F Source: [place] 8:15 AM [facility] [address] [place] [address] OFFICE VISIT Date of Service: 03/07/17 MR#: [id number] Acct: [id number] Name: PIA ROTHMAN Venkat Rep #: [id number] : 1990 Provider: Yamini Abraham D.C. Age/Sex: 26/F [place] [facility] [place]: Signed Intake Vital Signs03/07/17 Height 5 ft 1.5 in 03/07/17 Weight: 213 lb 5 oz 03/07/17 Body Mass Index (BMI) 39.6 Intake Visit Reasons: back pain Is patient in pain?: Yes Allergies No Known Allergies Allergy (Unverified 02/27/17 10:11) Medications cyclobenzaprine 10 mg tablet 10 mg PO Q8H 02/22/17 [History Confirmed 02/27/17] PFSH Medical History Headaches, cluster (Acute) Heart murmur (Acute) Kidney disease (Acute) h/o apendectomy (Acute) osteoprosis (Acute) Surgical History History of tonsillectomy (Acute) kidney biopsy (Acute) Family History Other Arthritis Breast cancer COPD (chronic obstructive pulmonary disease) Colon cancer Heart disease Hypertension Melanoma Social History Smoking Status: Never smoker alcohol intake: current alcohol intake frequency: holidays/special occasions only Alcohol type: wine, hard liquor details: social substance use type: does not use caffeine: Yes what type of physical activity do you participate in: walking, running duration: 30-45 minutes/day seatbelt use: always do you feel safe at home: Yes 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 She states her pain has been little to none since her last visit, at times it will be achy but quickly go away. Pia complains of neck pain, she states her neck is sore and tight although she has not had any headaches. Leaning, reaching and rotation of the neck still causes increased pain. The patient denies any numbness or tingling. Location: neck and low back Duration: intermittent Aggravating or associated factors: leaning, rotation of the neck Relieving factors: chiro Pain Quality: aching, dull Exam Musc General: Yes normal posture, normal gait, joint tenderness (C2, C4, C5, T2, T6, L3, L5) and decreased ROM Cervical Spine: loss of normal cervical lordosis (mild anterior head carriage), cervical ROM normal, pain with cervical ROM with lateral flexion to right and with lateral flexion to left, cervical spasm (R suboccipital, L levator scap/upper trap) Thoracic/Lumbar Spine: thoracic and lumbar spine normal to inspection, pain with thoraco-lumbar ROM with forward flexion, thoraco-lumbar spasm on the left in the upper thoracic (lower trap/rhomboid) and bilaterally in the lower lumbar (QL) Sacroiliac joints: bilaterally Office Procedures Chiropractic Treatments Procedures Manipulation: 3-4 regions (C2, C5, T2, T6, L5) Electrical Stimulation: 15 mins Location: cervical Traction, Mechanical: Yes Details: Traction: thor/lumb, 15min Assessment AND Plan Problems 1. Segmental and somatic dysfunction of thoracic region M99.02 2. Segmental and somatic dysfunction of cervical region M99.01 3. Segmental and somatic dysfunction of lumbar region M99.03 4. Acute bilateral low back pain without sciatica M54.5 Plan Continue on modified acute care plan. Orders Orders: Plan Detail Goals Decrease pain and spasm Barriers Repetitive lifting Follow Up 2 Days (per week) Coding Level of Care Code No Charge Diagnoses Segmental and somatic dysfunction of thoracic region M99.02 Segmental and somatic dysfunction of cervical region M99.01 Segmental and somatic dysfunction of lumbar region M99.03 Acute bilateral low back pain without sciatica M54.5 Back pain location: low back pain Chronicity: acute Back pain laterality: bilateral Sciatica presence: without sciatica Additional Codes Procedures - Electrical Stimulation: 15 mins (10513) Procedures - Manipulation: 3-4 regions (19503) Procedures - Traction, Mechanical: Yes (08864) 03/12/17 0815 <Electronically signed by Yamini Abraham D.C.> Date Yamini Abraham D.C. Cosigner Signature: Date (if applicable) CC: CHIROPRACTIC REPORT Observed: 03/01/2017 Status: F Source: [place] 12:03 PM [facility] [address] [place] [address] OFFICE VISIT Date of Service: 02/28/17 MR#: [id number] Acct: [id number] Name: PIA ROTHMAN Rep #: [id number] : 1990 Provider: Yamini Abraham D.C. Age/Sex: 26/F [place] [facility] [place]: Signed Intake Vital Signs02/28/17 Height 5 ft 1.5 in 02/28/17 Weight: 213 lb 02/28/17 Body Mass Index (BMI) 39.6 Intake Visit Reasons: back pain Is patient in pain?: Yes Allergies No Known Allergies Allergy (Unverified 02/27/17 10:11) Medications cyclobenzaprine 10 mg tablet 10 mg PO Q8H 02/22/17 [History Confirmed 02/27/17] PFS Medical History Headaches, cluster (Acute) Heart murmur (Acute) Kidney disease (Acute) h/o apendectomy (Acute) osteoprosis (Acute) Surgical History History of tonsillectomy (Acute) kidney biopsy (Acute) Family History Other Arthritis Breast cancer COPD (chronic obstructive pulmonary disease) Colon cancer Heart disease Hypertension Melanoma Social History Smoking Status: Never smoker alcohol intake: current alcohol intake frequency: holidays/special occasions only Alcohol type: wine, hard liquor details: social substance use type: does not use caffeine: Yes what type of physical activity do you participate in: walking, running duration: 30-45 minutes/day seatbelt use: always do you feel safe at home: Yes 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 She states that since her last visit her pain and headaches have decreased. Today Pia rates her pain a 2/10, she states there is some slight tightness in the mid back, along with achiness in the low back. After working a 12 hr shift her pain is still sightly increased in the low back, although her neck pain has greatly decreased. The patient deneis any numbness or tingling. Location: neck and low back Duration: intermittent Aggravating or associated factors: working, bending and lifting Relieving factors: chiro Pain Quality: aching, dull Exam Musc General: Yes normal posture, normal gait, joint tenderness (C2, C4, C5, T2, T6, L3, L5) and decreased ROM Cervical Spine: loss of normal cervical lordosis (mild anterior head carriage), cervical ROM normal, pain with cervical ROM with lateral flexion to right and with lateral flexion to left, cervical spasm (R suboccipital, L levator scap/upper trap) Thoracic/Lumbar Spine: thoracic and lumbar spine normal to inspection, pain with thoraco-lumbar ROM with forward flexion, thoraco-lumbar spasm on the left in the upper thoracic (lower trap/rhomboid) and bilaterally in the lower lumbar (QL) Sacroiliac joints: bilaterally Office Procedures Chiropractic Treatments Procedures Manipulation: 3-4 regions (C2, C5, T2, T6, L5) Electrical Stimulation: 15 mins Location: cervical and lumbar Traction, Mechanical: Yes Details: Traction lumbar 15 min Assessment AND Plan Problems 1. Segmental and somatic dysfunction of thoracic region M99.02 2. Acute bilateral low back pain without sciatica M54.5 3. Segmental and somatic dysfunction of cervical region M99.01 4. Segmental and somatic dysfunction of lumbar region M99.03 Plan Continue acute treatment plan Orders Orders: Plan Detail Goals Decrease pain and spasm Barriers Repetitive lifting Follow Up 1 Week Coding Level of Care Code No Charge Diagnoses Segmental and somatic dysfunction of thoracic region M99.02 Acute bilateral low back pain without sciatica M54.5 Back pain location: low back pain Chronicity: acute Back pain laterality: bilateral Sciatica presence: without sciatica Segmental and somatic dysfunction of cervical region M99.01 Segmental and somatic dysfunction of lumbar region M99.03 Additional Codes Procedures - Electrical Stimulation: 15 mins (93365) Procedures - Traction, Mechanical: Yes (30649) Procedures - Manipulation: 3-4 regions (56501) 03/01/17 1203 <Electronically signed by Yamini Abraham D.C.> Date Yamini Abraham D.C. Cosigner Signature: Date (if applicable) CC: CHIROPRACTIC REPORT Observed: 02/28/2017 Status: F Source: [place] 11:35 AM [facility] [address] [place] [address] OFFICE VISIT Date of Service: 02/26/17 MR#: [id number] Acct: [id number] Name: PIA ROTHMAN Rep #: [id number] : 1990 Provider: Yamini Abraham D.C. Age/Sex: 26/F [place] [facility] [place] Status: Signed Intake Vital Signs02/26/17 Height 5 ft 1.5 in 02/26/17 Weight: 213 lb 02/26/17 Body Mass Index (BMI) 39.6 Intake Visit Reasons: back pain Allergies No Known Allergies Allergy (Unverified 02/27/17 10:11) Medications cyclobenzaprine 10 mg tablet 10 mg PO Q8H 02/22/17 [History Confirmed 02/27/17] PFSH Medical History Headaches, cluster (Acute) Heart murmur (Acute) Kidney disease (Acute) h/o apendectomy (Acute) osteoprosis (Acute) Surgical History History of tonsillectomy (Acute) kidney biopsy (Acute) Family History Other Arthritis Breast cancer COPD (chronic obstructive pulmonary disease) Colon cancer Heart disease Hypertension Melanoma Social History Smoking Status: Never smoker alcohol intake: current alcohol intake frequency: holidays/special occasions only Alcohol type: wine, hard liquor details: social substance use type: does not use caffeine: Yes what type of physical activity do you participate in: walking, running duration: 30-45 minutes/day seatbelt use: always do you feel safe at home: Yes additional social history: Dimitry- 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 She states that after her last visit she was sore, with no decrease in pain. Today Pia rates her pain a 3/10 and describes it as a tight and sore ache that comes and goes. Pia does not present with a headache today, although she did have one last night. Bending, lifting, pushing and transferring of patients all cause increased pain. The patients low back is also sore and tight today, she feels as if she can not stand up straight due to the tightness. After her shift at work her pain is at its worst, Pia denies any numbness or tingling. Location: neck and low back Duration: intermittent Aggravating or associated factors: bending, lifting, transfering patients Relieving factors: chiro Pain Quality: aching, dull, sharp Exam Musc General: Yes normal posture, normal gait, joint tenderness (C2, C4, C5, T2, T6, L3, L5) and decreased ROM Cervical Spine: loss of normal cervical lordosis (mild anterior head carriage), cervical ROM normal, pain with cervical ROM with lateral flexion to right and with lateral flexion to left, cervical spasm (R suboccipital, L levator scap/upper trap) Thoracic/Lumbar Spine: thoracic and lumbar spine normal to inspection, pain with thoraco-lumbar ROM with forward flexion, thoraco-lumbar spasm on the left in the upper thoracic (lower trap/rhomboid) and bilaterally in the lower lumbar (QL) Sacroiliac joints: bilaterally Office Procedures Chiropractic Treatments Procedures Manipulation: 3-4 regions (C2, C6, T4, T8, L5) Electrical Stimulation: 15 mins Location: cervical and lumbar Traction, Mechanical: Yes Details: Traction: thor/lumb, 15min Assessment AND Plan Problems 1. Segmental and somatic dysfunction of thoracic region M99.02 2. Segmental and somatic dysfunction of cervical region M99.01 3. Segmental and somatic dysfunction of lumbar region M99.03 Plan Continue acute care plan Orders Orders: Plan Detail Goals Decrease pain and spasm Barriers Repetitive lifting Follow Up 2 Days (per week) Coding Level of Care Code No Charge Diagnoses Segmental and somatic dysfunction of thoracic region M99.02 Segmental and somatic dysfunction of cervical region M99.01 Segmental and somatic dysfunction of lumbar region M99.03 Additional Codes Procedures - Electrical Stimulation: 15 mins (77230) Procedures - Manipulation: 3-4 regions (42584) Procedures - Traction, Mechanical: Yes (48419) 02/28/17 7705 <Electronically signed by Yamini Abraham D.C.> Date Yamini Abrahma D.C. Cosigner Signature: Date (if applicable) CC: [employer] OFFICE VISIT Observed: 02/27/2017 Status: F Source: [place] REPORT 10:26 AM [facility] [address] [place] [address] OFFICE VISIT Date of Service: 02/27/17 MR#: [id number] Acct: [id number] Name: PIA ROTHMAN Rep #: [id number] : 1990 Provider: FLORENTINO Brewer Age/Sex: 26/F [place] [facility] [place]: Signed Intake Vital Signs02/27/17 Height 5 ft 1.5 in 02/27/17 Weight: 214 lb 02/27/17 Body Mass Index (BMI) 39.7 02/27/17 Blood Pressure 110/68 Intake Visit Reasons: IUD removal Chief Complaint: IUD Removal Family Protection Specialist Required: No Is patient in pain?: No Allergies No Known Allergies Allergy (Unverified 02/27/17 10:11) Medications cyclobenzaprine 10 mg tablet 10 mg PO Q8H 02/22/17 [History Confirmed 02/27/17] Is last menstrual period known: No Post menopausal: No Patient : No : No PFSH Medical History Headaches, cluster (Acute) Heart murmur (Acute) Kidney disease (Acute) h/o apendectomy (Acute) osteoprosis (Acute) Surgical History History of tonsillectomy (Acute) kidney biopsy (Acute) Family History Other Arthritis Breast cancer COPD (chronic obstructive pulmonary disease) Colon cancer Heart disease Hypertension Melanoma Social History Smoking Status: Never smoker alcohol intake: current alcohol intake frequency: holidays/special occasions only Alcohol type: wine, hard liquor details: social substance use type: does not use caffeine: Yes what type of physical activity do you participate in: walking, running duration: 30-45 minutes/day seatbelt use: always do you feel safe at home: Yes additional social history: Dimitry- 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 Has been in almost 5 years. Office Procedures IUD Removal IUD Removal Details: Sign out documentation: Completed Procedure: Speculum placed in vagina, IUD string visualized and grasped with ring forceps. Assessment AND Plan Problems 1. Encounter for IUD removal Z30.432 Plan Will use condoms until ready to attempt . Start PNV. Call if no menses 6-8 weeks. Has history of irregular menses. Orders Orders: Plan Detail Goals Decrease pain and spasm Barriers Repetitive lifting Coding Level of Care Code No Charge Diagnoses Encounter for IUD removal Z30.432 02/27/17 1026 <Electronically signed by Karyn GARLAND> Date Karyn GARLAND Cosigner Signature: Date (if applicable) CC: CHIROPRACTIC REPORT Observed: 02/26/2017 Status: F Source: [place] 1:29 PM [facility] [address] [place] [address] OFFICE VISIT Date of Service: 02/22/17 MR#: [id number] Acct: [id number] Name: PIA ROTHMAN Rep #: [id number] : 1990 Provider: Yamini Abraham D.C. Age/Sex: 26/F [place] [facility] [place]: Signed Intake Vital Signs02/22/17 Height 5 ft 1.5 in 02/22/17 Weight: 213 lb 5 oz 02/22/17 Body Mass Index (BMI) 39.6 Intake Visit Reasons: Back pain Is patient in pain?: Yes Allergies No Known Allergies Allergy (Unverified 02/22/17 16:03) Medications cyclobenzaprine 10 mg tablet 10 mg PO Q8H 02/22/17 [History Confirmed 02/22/17] PFSH Medical History Headaches, cluster (Acute) Heart murmur (Acute) Kidney disease (Acute) h/o apendectomy (Acute) osteoprosis (Acute) Family History Other Arthritis Breast cancer COPD (chronic obstructive pulmonary disease) Colon cancer Heart disease Hypertension Melanoma Social History Smoking Status: Never smoker alcohol intake: current alcohol intake frequency: holidays/special occasions only Alcohol type: wine, hard liquor substance use type: does not use what type of physical activity do you participate in: walking, running duration: 30-45 minutes/day HPI Back pain: Chief Complaint: neck and low back pain Visit Number: 1 Referral source: [employer] Employee Details: PIA ROTHMAN is a 26 year old F who presents with neck and low back pain. Pia states that on occasion she has some neck pain upon rising and after long shift, mainly on the L side. The pain is described as stiff and tight, with frequent headaches stating once per week. The patient also complains of low back pain, the pain comes and goes especially after lifting or even after a fast sudden movement. At times the patients SI joint will cause pain on the R side, again that pain comes and goes. The pain is described as stiff and achy also. Pia denies any numbness, tingling, or radiculopathy. Onset: 02/15/17 Location: neck/low back Duration: intermittent Aggravating or associated factors: lifting, and sudden fast movement Relieving factors: N/A Pain Quality: aching, other (stiff) ROS Musc Reports system reviewed and no additional complaints, except as docu, Reports as per HPI Neuro Yes system reviewed and no additional complaints, except as docu, Yes as per HPI Exam Musc General: Yes normal posture, normal gait, joint tenderness (C2, C4, C5, T2, T6, L3, L5) and decreased ROM Cervical Spine: loss of normal cervical lordosis (mild anterior head carriage), cervical ROM normal, pain with cervical ROM with lateral flexion to right and with lateral flexion to left, cervical spasm (R suboccipital, L levator scap/upper trap) Thoracic/Lumbar Spine: thoracic and lumbar spine normal to inspection, pain with thoraco-lumbar ROM with forward flexion, thoraco-lumbar spasm on the left in the upper thoracic (lower trap/rhomboid) and bilaterally in the lower lumbar (QL) Sacroiliac joints: bilaterally Office Procedures Chiropractic Treatments Procedures Manipulation: 3-4 regions (C2, C5, T2, T7, L3, L5) Electrical Stimulation: 15 mins Location: cervical and lumbar Traction, Mechanical: Yes Details: Traction: thor/lumb, 10min Assessment AND Plan 1. Acute bilateral low back pain without sciatica M54.5 2. Segmental and somatic dysfunction of cervical region M99.01 Orders Orders: 3. Segmental and somatic dysfunction of lumbar region M99.03 Orders Orders: 4. Segmental and somatic dysfunction of thoracic region M99.02 Plan Schedule follow up for next week Plan Detail Goals Decrease pain and spasm Barriers Repetitive lifting Follow Up 1 Week Coding Level of Care Code Off vis,new,level 3 Diagnoses Acute bilateral low back pain without sciatica M54.5 Back pain location: low back pain Chronicity: acute Back pain laterality: bilateral Sciatica presence: without sciatica Segmental and somatic dysfunction of cervical region M99.01 Segmental and somatic dysfunction of lumbar region M99.03 Segmental and somatic dysfunction of thoracic region M99.02 Additional Codes Procedures - Electrical Stimulation: 15 mins (02921) Procedures - Manipulation: 3-4 regions (57822) Procedures - Traction, Mechanical: Yes (95488) 02/26/17 1329 <Electronically signed by Yamini Abraham D.C.> Date Yamini Abraham D.C. Cosigner Signature: Date (if applicable) CC: ALLERGIES ALLERGIES DATE TYPE / CODE NAME / CODE REACTION SEVERITY SOURCE 01/14/2018 Drug No Known Unknown [place] Allergy/094411749(S Allergies/F0019 [facility]) [address]72(RXNORM) Hospital Repository Miscellaneous NO KNOWN [place] Allergy/391457876(S ALLERGIES [facility]) [facility] Repository Drug NO KNOWN [place] Class/079253997(SNO ALLERGIES [facility]) [place] Repository ENCOUNTERS ENCOUNTERS ADMIT/DISCHARGE ACCOUNT ADMITTING ENCOUNTER LOCATION SOURCE NUMBER CLASS 01/15/2018/01/16/20 [id number] Ambulatory BMSBuilding:B [place] 18 MS.[facility] Repository 01/14/2018/01/15/20 [id number] Ambulatory BMSBuilding:B [place] 18 MS.[facility] Repository 01/10/2018 [id number] Ambulatory Building:[facility] Repository 01/08/2018 [id number] Ambulatory [facility] Hospital ing:LAB Repository 01/03/2018 [id number] Ambulatory [facility] ing:PAVLAB Repository 01/03/2018/01/04/20 [id number] Ambulatory BMSBuilding:B [place] 18 MS.[facility] Repository 12/06/2017/12/07/19 [id number] Ambulatory Building:[address] Repository 12/03/2017/12/04/19 [id number] Ambulatory BMSBuilding:B [place] 18 MS.[facility] Repository 12/02/2017 [id number] Ambulatory BMSBuilding:B [place] MS.CF.[facility] Repository 11/29/2017/11/30/19 [id number] Ambulatory [address] Hospital ing:WPOUTRoom Repository : [id number] 11/22/2017/11/23/19 [id number] Ambulatory Building:[address] Repository 11/15/2017/11/16/19 [id number] Ambulatory BMSBuilding:B [place] 18 MS.[facility] Repository 11/06/2017/11/07/19 [id number] Ambulatory BMSBuilding:B [place] 18 MS.[facility] Repository 11/05/2017 [id number] Ambulatory [facility] ing:LAB Repository 11/05/2017/11/06/19 [id number] Ambulatory BMSBuilding:B [place] 18 MS.[facility] Repository 11/05/2017/11/06/19 [id number] Ambulatory Building:[address] Repository 10/24/2017/10/25/19 [id number] Ambulatory BMSBuilding:B [place] 18 MS.[facility] Repository 10/16/2017/10/17/19 [id number] Ambulatory BMSBuilding:B [place] 18 MS.[facility] Hospital Repository 10/13/[id number] [facility] Hospital ing:[place] Repository 10/10/[id number] [facility] Hospital ing:LAB.[place] Repository E 10/09/2017/10/10/19 [id number] Ambulatory BMSBuilding:B [place] 18 MS.[facility] Repository 09/11/[id number] [facility] Hospital[facility] Hospital ing:LAB Repository 09/11/2017/09/12/19 [id number] Ambulatory BMSBuilding:B [place] 18 MS.[facility] Repository 08/13/[id number] [facility] HospitalBuild Hospital ing:LAB Repository 08/13/2017/08/14/19 [id number] Ambulatory BMSBuilding:B [place] 18 MS.[facility] Repository 05/24/[id number] [facility] Hospital[facility] Hospital ing:LAB Repository 04/23/[id number] [facility] Hospital ing:MASS Repository 03/26/2017/03/26/19 [id number] Ambulatory Building:[address] Repository 03/24/2017/03/24/19 [id number] Ambulatory [address] Repository 03/22/[id number] [facility] Hospital[facility] Hospital ing:LAB Repository 03/15/2017/03/15/19 [id number] Ambulatory BMSBuilding:B [place] 18 MS.[facility] Hospital Repository 03/08/2017/03/08/19 [id number] Ambulatory BMSBuilding:B [place] 18 MS.[facility] Hospital Repository 03/07/2017/03/07/19 [id number] Ambulatory BMSBuilding:B [place] 18 MS.[facility] Hospital Repository 02/28/2017/02/28/19 [id number] Ambulatory BMSBuilding:B [place] 18 MS.[facility] Hospital Repository 02/27/2017/02/27/19 [id number] Ambulatory BMSBuilding:B [place] 18 MS.[facility] Repository 02/26/2017/02/26/19 [id number] Ambulatory BMSBuilding:B [place] 18 MS.[facility] Repository 02/22/2017/02/22/19 [id number] Ambulatory BMSBuilding:B [place] 18 MS.[facility] Repository PAYERS PAYERS ENCOUNTER GUARANTOR PAYER SUBSCRIBER SOURCE 01/15/2018 PIA E Primary PIA E [place] [id number] Insurance:[facility] MUTUAL SMUCKERDOB: [facility] [id number] [address]Ykl: (330) SERVICESPolicy Repository [phone] () Number: [id number] e Date:9870-49-05[address], [place] [address]KP: CHECK WEBSITE 01/15/2018 Secondary NOT GIVENUNK [place] Insurance:SELF PAY [facility] Number: Effective Repository Date:2018-01-15 01/14/2018 PIA E Primary PIA E [place] [id number] Insurance:[facility] SMUCKERDOB: [facility] [id number] [facility] [address]Ipn: (330) SERVICESPolicy Repository [phone] () Number: [id number] e Date:7098-39-18[address] [address], [place] [address]RK: CHECK WEBSITE 01/14/2018 Secondary NOT GIVENUNK [place] Insurance:SELF PAY [facility] Number: Effective Repository Date:2018-01-14 01/10/2018 PIA Primary PIA Eliud [id number] Insurance:[employer]ICAL [facility] SMUCKERDOB: [facility] SMUCKERDOB: [facility] [id number] Number: [id number] Repository [facility] [id number] [facility] [address]Znx: (330) e Date: [place], [place] [phone] () [address] 01/08/2018 PIA E Primary PIA E [place] [id number] Insurance:[facility] MUTUAL SMUCKERDOB: [facility] [id number] Cancer Center [address]Div: (330) SERVICESPolicy Repository [phone] () Number: [id number] e Date:5760-19-20[address] [address]UNQ[place], [place] [address]FG: CHECK WEBSITE 01/08/2018 Secondary NOT GIVENUNK [place] Insurance:SELF PAY [facility] Number: Effective Repository Date:2018-01-03 01/03/2018 PIA E Primary PIA E [place] [id number] Insurance:[facility]: [facility] [id number] [facility] [address]Dha: (330) SERVICESPolicy Repository [phone] () Number: [id number] e Date:7526-36-93[address] [address], [place] [address]GL: CHECK WEBSITE 01/03/2018 Secondary NOT GIVENUNK [place] Insurance:SELF PAY [facility] Number: Effective Repository Date:2018-01-03 01/03/2018 PIA E Primary PIA E [place] [id number] Insurance:[facility]: [facility] [id number] Cancer [facility] [address]Sbb: (330) SERVICESPolicy Repository [phone] () Number: [id number] e Date:4344-77-66[address] [address], [place] [address]WW: CHECK WEBSITE 01/03/2018 Secondary NOT GIVENUNK [place] Insurance:SELF PAY [facility] Number: Effective Repository Date:2018-01-03 12/06/2017 PIA Primary PIA Eliud SIMENTAL Insurance:MEDICAL [place] [facility] [id number] Number: [id number] Repository [facility] [id number] [facility] [address]Grt: (330) e Date: [place], [place] [phone] () [phone] 12/03/2017 PIA E Primary PIA E [place] [id number] Insurance:[facility] SMUCKERDOB: [facility] [id number] Cancer Center [address]Mdy: (330) SERVICESPolicy Repository [phone] () Number: [id number] e Date:2336-30-05[address] [address], [place] [address]DN: CHECK WEBSITE 12/03/2017 Secondary NOT GIVENUNK [place] Insurance:SELF PAY [facility] Number: Effective Repository Date:2017-12-03 12/02/2017 PIA E Primary PIA E [place] [id number] Insurance:[facility] SMUCKERDOB: [facility] [id number] [facility] [address]Zbp: (330) SERVICESPolicy Repository [phone] () Number: [id number] e Date:3071-01-64[address] [address]UUYARZXUI, [place] [address]EB: CHECK WEBSITE 12/02/2017 Secondary NOT GIVENUNK [place] Insurance:SELF PAY [facility] Number: Effective Repository Date:2017-12-02 11/29/2017 PIA E Primary PIA [place] [id number] Insurance:[facility]IHEALTHUCKERDOB: [facility] [id number] [facility] [address]Gkz: (330) SERVICESPolicy Repository [phone] () Number: [id number] e Date:3553-20-85VS [address] [address]CEFJGOSDN, [place] [address]NB: CHECK WEBSITE 11/29/2017 Secondary NOT GIVENUNK [place] Insurance:SELF PAY [facility] Number: Effective Repository Date:2017-11-29 11/22/2017 PIA Primary PIA Rivas HOLA Insurance:[facility] SMUCKERDOB: [facility] SMUCKERDOB: [facility] [id number] Number: [id number] Repository [facility] [id number] [facility] [address]Mjc: (330) e Date: [place], [place] [phone] () [phone] 11/15/2017 PIA E Primary PIA E [place] [id number] [facility] [id number] [address]Eyf: (330) SERVICESPolicy Repository [phone] () Number: [id number] e Date:7568-55-03YL [address] [address]NNKHCIBSB, [place] [address]LG: CHECK WEBSITE 11/15/2017 Secondary NOT GIVENUNK [place] Insurance:SELF PAY [facility] Number: Effective Repository Date:2017-11-15 11/06/2017 PIA E Primary PIA E [place] [id number] [facility] [id number] Cancer Center [address]Bbw: (330) SERVICESPolicy Repository [phone] () Number: [id number] e Date:3152-66-08XE [address] [address]YJAFGQRBF, [place] [address]OX: CHECK WEBSITE 11/06/2017 Secondary NOT GIVENUNK [place] Insurance:SELF PAY [facility] Number: Effective Repository Date:2017-11-06 11/05/2017 PIA E Primary PIA E [place] [id number] [facility] [id number] Cancer Center [address]Cbg: (330) SERVICESPolicy Repository [phone] () Number: [id number] e Date:9796-88-85LY [address] [address]K[place]PTECF, [place] [address]XL: CHECK WEBSITE 11/05/2017 Secondary NOT GIVENUNK [place] Insurance:SELF PAY [facility] Number: Effective Repository Date:2017-11-05 11/05/2017 PIA E Primary PIA E [place] [id number] [facility] [id number] Cancer Center [address]Szk: (330) SERVICESPolicy Repository [phone] () Number: [id number] e Date:4372-78-82PA [address] [address]MDHLLYWBN, [place] [address]VL: CHECK WEBSITE 11/05/2017 Secondary NOT GIVENUNK [place] Insurance:SELF PAY [facility] Number: Effective Repository Date:2017-10-18 11/05/2017 PIA Primary PIA Rivas [facility] SMUCKERDOB: [facility] SMUCKERDOB: [facility] [id number] Number: [id number] Repository [facility] [id number] [facility] [address]Sfx: (330) e Date: [place], [place] [phone] () [address] 10/24/2017 PIA E Primary PIA E [place] [id number] Insurance:[facility] SMUCKERDOB: [facility] [id number] Cancer [facility] [address]Hkd: (330) SERVICESPolicy Repository [phone] () Number: [id number] e Date:3405-39-56GY [facility] [address]NGMLDUOCB, [place] [address]BL: CHECK WEBSITE 10/24/2017 Secondary NOT GIVENUNK [place] Insurance:SELF PAY [facility] Number: Effective Repository Date:2017-10-24 10/16/2017 PIA E Primary PIA E [place] [id number] Insurance:[facility] SMUCKERDOB: [facility] [id number] Cancer Center [address]Quk: (330) SERVICESPolicy Repository [phone] () Number: [id number] e Date:0882-91-00CW [facility] [address]RHUAAXHGX, [place] [address]QG: CHECK WEBSITE 10/16/2017 Secondary NOT GIVENUNK [place] Insurance:SELF PAY [facility] Number: Effective Repository Date:2017-10-16 10/13/2017 PIA E Primary NOT GIVENUNK [place] [id number] Insurance:SELF PAY [facility] [address]Uni: (330) Number: Effective Repository [phone] () Date:2017-05-04 10/10/2017 PIA E Primary PIA E [place] [id number] [facility] [id number] Cancer Center [address]Wni: (330) SERVICESPolicy Repository [phone] () Number: [id number] e Date:0459-61-85XK [address] [address]NGNVLNVAG, [place] [address]BB: CHECK WEBSITE 10/10/2017 Secondary NOT GIVENUNK [place] Insurance:SELF PAY [facility] Number: Effective Repository Date:2017-10-10 10/09/2017 PIA E Primary PIA E [place] [id number] Insurance:[facility]: [facility] [id number] [facility] [address]Dom: (330) SERVICESPolicy Repository [phone] () Number: [id number] e Date:2494-73-83KU [address] [address]NQOPFQMOR, [place] [address]QG: CHECK WEBSITE 10/09/2017 Secondary NOT GIVENUNK [place] Insurance:SELF PAY [facility] Number: Effective Repository Date:2017-10-09 09/11/2017 PIA E Primary PIA E [place] [id number] [facility] [id number] Cancer [facility] [address]Wjm: (330) SERVICESPolicy Repository [phone] () Number: [id number] e Date:0935-87-48YZ [address] [address]KASYGYWLS, [place] [address]EX: CHECK WEBSITE 09/11/2017 Secondary NOT GIVENUNK [place] Insurance:SELF PAY [facility] Number: Effective Repository Date:2017-09-11 09/11/2017 PIA E Primary PIA E [place] [id number] [facility] [id number] [address]Qrz: (330) SERVICESPolicy Repository [phone] () Number: [id number] e Date:2455-21-65TI [address] [address]VCEKNBDNS, [place] [address]ZM: CHECK WEBSITE 09/11/2017 Secondary NOT GIVENUNK [place] Insurance:SELF PAY [facility] Number: Effective Repository Date:2017-09-11 08/13/2017 PIA E Primary PIA E [place] [id number] Insurance:[facility]: [facility] [id number] [address]Ujh: (330) SERVICESPolicy Repository [phone] () Number: [id number] e Date:1809-41-35HT [address] [address]TTKXMLXQM, [place] [address]AC: CHECK WEBSITE 08/13/2017 Secondary NOT GIVENUNK [place] Insurance:SELF PAY [facility] Number: Effective Repository Date:2017-08-13 08/13/2017 PIA E Primary PIA E [place] [id number] Insurance:[facility]: [facility] [id number] [place] [address]Njh: (330) SERVICESPolicy Repository [phone] () Number: [id number] e Date:8745-69-52PG [address] [address]FWMIRITST, [place] [address]ZZ: CHECK WEBSITE 08/13/2017 Secondary NOT GIVENUNK [place] Insurance:SELF PAY [facility] Number: Effective Repository Date:2017-08-13 05/24/2017 PIA E Primary NOT GIVENUNK [place] [id number] Insurance:SELF PAY [facility] [address]Wod: (330) Number: Effective Repository [phone] () Date:2017-05-24 04/23/2017 PIA E Primary PIA E [place] [id number] Insurance:[facility]: [facility] [id number] Cancer Center [address]Pgw: (330) SERVICESPolicy Repository [phone] () Number: [id number] e Date:8754-52-39KY [address] [address]KUMFGODZX, [place] [address]MH: CHECK WEBSITE 04/23/2017 Secondary NOT GIVENUNK [place] Insurance:SELF PAY [facility] Number: Effective Repository Date:2017-03-30 03/26/2017 ROSALIA IBANEZ Primary PIA SÁNCHEZ MORROWB: Insurance:MEDICAL SMUCKERDOB: Children's [id number] [facility] [id number] [facility], Number: [place] [address]Hic: (330) [id number] [place], [place] 747[address] () e Date: [address] 03/22/2017 PIA E Primary PIA E [place] [id number] Insurance:[facility] SMUCKERDOB: [facility] [id number] Cancer Center [address]Era: (330) SERVICESPolicy Repository [phone] () Number: [id number] e Date:4430-10-99YC [address] [address]UCCMXSTYC, [place] [address]ZN: CHECK WEBSITE 03/22/2017 Secondary NOT GIVENUNK [place] Insurance:SELF PAY [facility] Number: Effective Repository Date:2017-03-22 03/15/2017 PIA E Primary PIA E [place] [id number] Insurance:[facility] [id number] Cancer [facility] [address]Lry: (330) SERVICESPolicy Repository [phone] () Number: [id number] e Date:6899-03-78FV [address] [address]GMFRGCSET, [place] [address]HQ: CHECK WEBSITE 03/15/2017 Secondary NOT GIVENUNK [place] Insurance:SELF PAY [facility] Number: Effective Repository Date:2017-03-08 03/08/2017 PIA E Primary PIA E [place] [id number] [facility] [id number] [place] [address]Nwk: (330) SERVICESPolicy Repository [phone] () Number: [id number] e Date:6648-78-28ZM [address] [address]DHOTLLEVV, [place] [address]EF: CHECK WEBSITE 03/08/2017 Secondary NOT GIVENUNK [place] Insurance:SELF PAY [facility] Number: Effective Repository Date:2017-02-28 03/07/2017 PIA E Primary PIA E [place] [id number] Insurance:[facility]: [facility] [id number] Cancer Center [address]Qfr: (330) SERVICESPolicy Repository [phone] () Number: [id number] e Date:3568-46-64CU [address] [address]UIRWJQEFR, [place] [address]QT: CHECK WEBSITE 03/07/2017 Secondary NOT GIVENUNK [place] Insurance:SELF PAY [facility] Number: Effective Repository Date:2017-02-28 02/28/2017 PIA E Primary PIA E [place] [id number] Insurance:[facility]: [facility] [id number] [facility] [address]Mvi: (330) SERVICESPolicy Repository [phone] () Number: [id number] e Date:6154-37-41RA [address] [address]DSTHLMTLL, [place] [address]CF: CHECK WEBSITE 02/28/2017 Secondary NOT GIVENUNK [place] Insurance:SELF PAY [facility] Number: Effective Repository Date:2017-02-22 02/27/2017 PIA E Primary PIA E [place] [id number] [facility]: [facility] [id number] Cancer Center [address]Ekb: (330) SERVICESPolicy Repository [phone] () Number: [id number] e Date:0536-51-20HU [address] [address]EROAOVSMS, [place] [address]AD: CHECK WEBSITE 02/27/2017 Secondary NOT GIVENUNK [place] Insurance:SELF PAY [facility] Number: Effective Repository Date:2017-02-20 02/26/2017 PIA [place] Primary PIA [place] [id number] [facility]: [facility] [id number] Cancer Center [address]Xxr: (330) SERVICESPolicy Repository [phone] () Number: [id number] e Date:3612-57-80KS [address] [address]JBXBQVXRU, [place] [address]DB: CHECK WEBSITE 02/26/2017 Secondary NOT GIVENUNK [place] Insurance:SELF PAY [facility] Number: Effective Repository Date:2017-02-22 02/22/2017 PIA Robledo Primary PIA [place] [id number] [facility] [id number] [place] [address]Zlf: (330) SERVICESPolicy Repository [phone] () Number: [id number] e Date:3091-60-69TW [address] [address]JYLFCRFMN, [place] [address]KK: CHECK WEBSITE 02/22/2017 Secondary NOT GIVENUNK [place] Insurance:SELF PAY [facility] Number: Effective Repository Date:2017-02-20
== END ==
PROVIDERS: Family Provider Family Medicine; PCP Family Medicine; Visit Provider Obstetrics & Gynecology
DX: Z34.90 Encounter for supervision of normal pregnancy, unspecified, unspecified trimester (principal)
CPT/HCPCS: 36415; 82950; 85025

== ENCOUNTER → 2018-01-08 06:51 | Outpatient (CLI) | payer OTHER, SELFPAY ==
[2018-01-03 13:29] VITALS: BMI 39.4
[2018-01-08 08:54] LABS: Glucose GTT-Gestation. Fasting 71 mg/dL (<105)
[2018-01-08 09:37] LABS: Glucose GTT-Gestational 1 Hr 163 mg/dL (<190)
[2018-01-08 09:43] LABS: Glucose GTT-Gestational 2 Hr 133 mg/dL (<165)
[2018-01-08 11:05] LABS: Glucose GTT-Gestational 3 Hr 105 L (<145)
== END ==
PROVIDERS: Family Provider Family Medicine; PCP Family Medicine; Referring Provider Obstetrics & Gynecology; Visit Provider Obstetrics & Gynecology
DX: O99.810 Abnormal glucose complicating pregnancy (principal); Z3A.00 Weeks of gestation of pregnancy not specified
CPT/HCPCS: 36415; 82951; 82952

== ENCOUNTER → 2018-01-31 17:33 | Outpatient (CLI) | payer OTHER, SELFPAY ==
[2018-01-31 09:09] VITALS: BMI 39.1
[2018-01-31 19:49] LABS: Protein, Urine (Random) 50.5 mg/dL (<11.9); Protein:Creat Ratio 210 mg/g CRE (0-200)
== END ==
PROVIDERS: Family Provider Family Medicine; PCP Family Medicine; Referring Provider Nurse Practitioner Women's Health; Visit Provider Nurse Practitioner Women's Health
DX: O12.13 Gestational proteinuria, third trimester (principal); N05.9 Unspecified nephritic syndrome with unspecified morphologic changes; M54.6 Pain in thoracic spine; Z3A.00 Weeks of gestation of pregnancy not specified
CPT/HCPCS: 82570; 84156; 87086

== ENCOUNTER 2018-02-05 20:30 | Outpatient (CLI) | payer OTHER, SELFPAY ==
[2018-01-31 09:09] VITALS: BMI 39.1
[2018-02-05 21:10] VITALS: BMI 39.9
[2018-02-05] MEDS: Mag Hydrox/Al Hydrox/Simeth 30 ML UDC PO (21:54)
== END 2018-02-05 22:00 | disposition home or self-care (01) ==
LOC: WPOUT 20:37 → WP 20:37
PROVIDERS: Family Provider Family Medicine; PCP Family Medicine; Referring Provider Obstetrics & Gynecology; Visit Provider Obstetrics & Gynecology
DX: Z34.90 Encounter for supervision of normal pregnancy, unspecified, unspecified trimester (principal)

== ENCOUNTER 2018-02-22 15:35 | Outpatient (CLI) | payer OTHER, SELFPAY ==
[2018-02-22 15:20] VITALS: BMI 39.9
[2018-02-22 16:16] VITALS: BMI 40.0
--- NOTE | 2018-02-26 19:30 | OB.TRI.NOTE ---
- Problem List (1) Abnormal glucose Status: Acute Comment: 3 hr GTT normal (2) Unspecified contraceptive management Status: Acute Comment: Mirena IUD 6wk pp-needs insurance auth after 02/05/18 (3) Segmental and somatic dysfunction of pelvic region Status: Acute (4) Two vessel umbilical cord, antepartum, single gestation Status: Acute Comment: following with mfm. growth us q 4 weeks, weekly nsts after 32. (5) Segmental and somatic dysfunction of sacral region Status: Acute (6) Status: Acute Qualifiers: Comment: MFM US ordered. echocardiogram-2 vessel cord, weekly NST at 32 weeks, growth US every 4 weeks. NIPT done, low risk, afp- negative. carrier screening declined. Adequate growth scan 02/07/18 repeat in 4 weeks. (7) Glomerulonephritis Status: Acute Comment: MPGN with complete resolution- s/p mfm consult, recommend baby ASA, growth US in third trimester (8) Supervision of normal Status: Acute Qualifiers: Comment: PRR KRISTINE 03/23/18 girl Paco (9) Segmental and somatic dysfunction of thoracic region Status: Acute (10) Segmental and somatic dysfunction of cervical region Status: Acute (11) Segmental and somatic dysfunction of lumbar region Status: Acute History of Present Illness Date of Service: 02/26/18 Was patient seen by the physician?: No Reason For Visit: NST History of Present Illness: nst Allergies No Known Allergies Allergy (Verified 02/22/18 15:14) - Pertinent Past Medical History Medical History: Past Medical History (Last Reviewed 02/22/18 @ 15:14 by Sarah Puckett) Headaches, cluster Heart murmur Kidney disease h/o apendectomy osteoprosis Surgical History: Past Surgical History (Last Reviewed 02/22/18 @ 15:14 by Sarah Puckett) History of tonsillectomy kidney biopsy NST - FHR Rate Baby A Baseline: 140 Variability:: Moderate Accelerations:: 15 x 15 Decelerations:: None NST Reactive:: Yes FHR Category:: Category I Uterine Activity:: no regular Impression/Plan reative nst fu weekly
--- OUTSIDE RECORDS SUMMARY | 2018-04-29 05:33 | XMS RPT_ITS ---
:1990 Author Organization [place] Support Name Relationship Address Phone WANDA FITZGERALD Unavailable [address] + [place] [address] SMUCKER, LEONIDES Unavailable [address] + [place] [address] [facility] Unavailable [address] + [place] [address] FITZGERALDWANDA BURGESS Unavailable [address] + [place] [address] SMUCKER, LEONIDES Unavailable [address] + [place] [address] [facility] Unavailable [address] + [place] [address] FITZGERALDDAPHNEY BURGESSIE Unavailable [address] + [place] [address] SMUCKER, LEONIDES Unavailable [address] + [place] [address] H Unavailable [address] + [place] [address] FITZGERALDWANDA BURGESS Unavailable [address] + [place] [address] SMUCKER, LEONIDES Unavailable [address] + [place] [address] H Unavailable [address] + [place] [address] FITZGERALDWANDA BURGESS Unavailable [address] + [place] [address] SMUCKER, LEONIDES Unavailable [address] + [place] [address] [facility] Unavailable [address] + [place] [address] FITZGERALD, WANDA Unavailable [address] + [place] [address] SMUCKER, LEONIDES Unavailable [address] + [place] [address] WC Unavailable [address] + [place] [address] FITZGERALD, WANDA Unavailable [address] + [place] [address] SMUCKER, LEONIDES Unavailable [address] + [place] [address] [facility] Unavailable [address] + [place] [address] FITZGERALD, WANDA Unavailable [address] + [place] [address] SMUCKER, LEONIDES Unavailable [address] + [place] [address] FITZGERALD, WANDA Unavailable [address] + [place] [address] SMUCKER, LEONIDES Unavailable [address] + [place] [address] [facility] Unavailable [address] + [place] [address] FITZGERALD, WANDA Unavailable [address] + [place] [address] SMUCKER, LEONIDES Unavailable [address] + [place] [address] [facility] Unavailable [address] + [place] [address] FITZGERALD, WANDA Unavailable [address] + [place] [address] SMUCKER, LEONIDES Unavailable [address] + [place] [address] [facility] Unavailable [address] + [place] [address] FITZGERALD, WANDA Unavailable [address] + [place] [address] SMUCKER, LEONIDES Unavailable [address] + [place] [address] [facility] Unavailable [address] + [place] [address] FITZGERADL, WANDA Unavailable [address] + [place] [address] SMUCKER, LEONIDES Unavailable [address] + [place] [address] [facility] Unavailable [address] + [place] [address] FITZGERALD, WANDA Unavailable [address] + [place] [address] SMUCKER, LEONIDES Unavailable [address] + [place] [address] [facility] Unavailable [address] + [place] [address] FITZGERALD, WANDA Unavailable [address] + [place] [address] SMUCKER, LEONIDES Unavailable [address] + [place] [address] FITZGERALD, WANDA Unavailable [address] + [place] [address] SMUCKER, LEONIDES Unavailable [address] + [place] [address] [facility] Unavailable [address] + [place] [address] FITZGERALD, WANDA Unavailable [address] + [place] [address] SMUCKER, LEONIDES Unavailable [address] + [place] [address] [facility] Unavailable [address] + [place] [address] FITZGERALD, WANDA Unavailable [address] + [place] [address] SMUCKER, LEONIDES Unavailable [address] + [place] [address] [facility] Unavailable [address] + [place] [address] FITZGERALD, WANDA Unavailable [address] + [place] [address] SMUCKER, LEONIDES Unavailable [address] + [place] [address] FITZGERALD, WANDA Unavailable [address] + [place] [address] SMUCKER, LEONIDES Unavailable [address] + [place] [address] [facility] Unavailable [address] + [place] [address] FITZGERALD, WANDA Unavailable [address] + [place] [address] SMUCKER, LEONIDES Unavailable [address] + [place] [address] [facility] Unavailable [address] + [place] [address] FITZGERALD, WANDA Unavailable [address] + [place] [address] SMUCKER, LEONIDES Unavailable [address] + [place] [address] [facility] Unavailable [address] + [place] [address] FITZGERALD, WANDA Unavailable [address] + [place] [address] SMUCKER, LEONIDES Unavailable [address] + [place] [address] FITZGERALD, WANDA Unavailable [address] + [place] [address] SMUCKER, LEONIDES Unavailable [address] + [place] [address] [facility] Unavailable [address] + [place] [address] FITZGERALD, WANDA Unavailable [address] + [place] [address] SMUCKER, LEONIDES Unavailable [address] + [place] [address] [facility] Unavailable [address] + [place] [address] FITZGERALD, WANDA Unavailable [address] + [place] [address] SMUCKER, LEONIDES Unavailable [address] + [place] [address] H Unavailable [address] + [place] [address] FITZGERALD, WANDA Unavailable [address] + [place] [address] SMUCKER, LEONIDES Unavailable [address] + [place] [address] [facility] Unavailable [address] + [place] [address] FITZGERALD, WANDA Unavailable [address] + [place] [address] SMUCKER, LEONIDES Unavailable [address] + [place] [address] FITZGERALD, WANDA Unavailable [address] + [place] [address] SMUCKER, LEONIDES Unavailable [address] + [place] [address] [facility] Unavailable [address] + [place] [address] FITZGERALD, WANDA Unavailable [address] + [place] [address] SMUCKER, LEONIDES Unavailable [address] + [place] [address] [facility] Unavailable [address] + [place] [address] FITZGERALD, WANDA Unavailable [address] + [place] [address] SMUCKER, LEONIDES Unavailable [address] + [place] [address] [facility] Unavailable [address] + [place] [address] FITZGERALD, WANDA Unavailable [address] + [place] [address] SMUCKER, LEONIDES Unavailable [address] + [place] [address] [facility] Unavailable [address] + [place] [address] FITZGERALD, WANDA Unavailable [address] + [place] [address] SMUCKER, LEONIDES Unavailable [address] + [place] [address] [facility] Unavailable [address] + [place] [address] FITZGERALD, WANDA Unavailable [address] + [place] [address] SMUCKER, LEONIDES Unavailable [address] + [place] [address] [facility] Unavailable [address] + [place] [address] FITZGERALD, WANDA Unavailable [address] + [place] [address] SMUCKER, LEONIDES Unavailable [address] + [place] [address] [facility] Unavailable [address] + [place] [address] FITZGERALD, WANDA Unavailable [address] + [place] [address] SMUCKER, LEONIDES Unavailable [address] + [place] [address] [facility] Unavailable [address] + [place] [address] FITZGERALD, WANDA Unavailable [address] + [place] [address] SMUCKER, LEONIDES Unavailable [address] + [place] [address] [facility] Unavailable [address] + [place] [address] FITZGERALD, WANDA Unavailable [address] + [place] [address] SMUCKER, LEONIDES Unavailable [address] + [place] [address] [facility] Unavailable [address] + [place] [address] FITZGERALD, WANDA Unavailable [address] + [place] [address] SMUCKER, LEONIDES Unavailable [address] + [place] [address] [facility] Unavailable [address] + [place] [address] FITZGERALD, ROSALIA Unavailable [address] + [place] [address] FITZGERALD, WANDA Unavailable [address] [facility] [address] [address] + [place] [address] FITZGERALD, WANDA Unavailable [address] + [place] [address] SMUCKER, LEONIDES Unavailable [address] + [place] [address] [facility] Unavailable [address] + [place] [address] FITZGERALD, WANDA Unavailable [address] + [place] [address] SMUCKER, LEONIDES Unavailable [address] + [place] [address] [facility] Unavailable [address] + [place] [address] FITZGERALD, WANDA Unavailable [address] + [place] [address] SMUCKER, LEONIDES Unavailable [address] + [place] [address] [facility] Unavailable [address] + [place] [address] FITZGERALD, WANDA Unavailable [address] + [place] [address] SMUCKER, LEONIDES Unavailable [address] + [place] [address] [facility] Unavailable [address] + [place] [address] Care Team Providers Name Role Phone DOAR BARRIENTOS Attending Unavailable SHWETA DYSON Referring Unavailable SUGEY WILKES Primary Care Unavailable DORA BARRIENTOS Attending Unavailable SHWETA DYSON Referring Unavailable AGUAYO, KIRT R Primary Care Unavailable MAGO, AMISH T Attending Unavailable MARCANTHONY, SHWETA E Referring Unavailable AGUAYO, KIRT R Primary Care Unavailable MAGO, AMISH T Attending Unavailable MARCANTHONY, SHWETA E Referring Unavailable AGUAYO, KIRT R Primary Care Unavailable MAGO, AMISH T Attending Unavailable MARCANTHONY, SHWETA E Referring Unavailable AGUAYO, KIRT R Primary Care Unavailable MCCARTNEYALVINO Vega Attending Unavailable MARCANTHONY, SHWETA E Referring Unavailable AGUAYO, KIRT R Primary Care Unavailable Dossivenkat, Yamini Schwartz Attending Unavailable Aguayo, Kirt Referring Unavailable Osman, Karyn Attending Unavailable Aguayo, Kirt Referring Unavailable Marcanthony, Shweta Attending Unavailable Aguayo, Kirt Referring Unavailable Osman, Karyn Attending Unavailable Aguayo, Kirt Primary Care Unavailable Osman, Karyn Referring Unavailable Marcanthony, Shweta Attending Unavailable Aguayo, Kirt Primary Care Unavailable Marcanthony, Shweta Referring Unavailable Marcanthony, Shweta Attending Unavailable Aguayo, Kirt Referring Unavailable Marcanthony, Shweta Attending Unavailable Aguayo, Kirt Referring Unavailable Osman, Karyn Attending Unavailable Aguayo, Kirt Referring Unavailable Marcanthony, Shweta Attending Unavailable Marcanthony, Shweta Referring Unavailable Aguayo, Kirt Primary Care Unavailable Marcanthony, Shweta Attending Unavailable Marcanthony, Shweta Referring Unavailable Aguayo, Kirt Primary Care Unavailable Marcanthony, Shweta Consulting Unavailable Marcanthony, Shweta Attending Unavailable Aguayo, Kirt Referring Unavailable Marcanthony, Shweta Attending Unavailable Marcanthony, Shweta Referring Unavailable Aguayo, Kirt Primary Care Unavailable DossiYamini vega D.C. Attending Unavailable Aguayo, Kirt Referring Unavailable Aguayo, Kirt Primary Care Unavailable DossiYamini vega D.C. Attending Unavailable Aguayo, Kirt Referring Unavailable Aguayo, Kirt Primary Care Unavailable DossieYamini D.C. Attending Unavailable Aguayo, Kirt Referring Unavailable Aguayo, Kirt Primary Care Unavailable Aguayo, Kirt Attending Unavailable Aguayo, Kirt Referring Unavailable Aguayo, Kirt Primary Care Unavailable Aguayo, Kirt Attending Unavailable Aguayo, Kirt Primary Care Unavailable Aguayo, Kirt Referring Unavailable DOCTOR, OUT OF TOWN Referring Unavailable Aguayo, Kirt Primary Care Unavailable Fredrick Diamond Attending Unavailable ASSESSMENT, HEALTH RISK Attending Unavailable ASSESSMENT, HEALTH RISK Referring Unavailable Aguayo, Kirt Primary Care Unavailable Marcanthony, Shweta Attending Unavailable Aguayo, Kirt Referring Unavailable Aguayo, Kirt Primary Care Unavailable Marcanthony, Shweta Attending Unavailable Marcanthony, Shweta Referring Unavailable Aguayo, Kirt Primary Care Unavailable Marcanthony, Shweta Attending Unavailable Aguayo, Kirt Referring Unavailable Aguayo, Kirt Primary Care Unavailable Osman, Karyn Attending Unavailable Aguayo, Kirt Referring Unavailable Aguayo, Kirt Primary Care Unavailable Marcanthony, Shweta Attending Unavailable Aguayo, Kirt Referring Unavailable Osman, Karyn Attending Unavailable Aguayo, Kirt Referring Unavailable Marcanthony, Shweta Attending Unavailable Marcanthony, Shweta Referring Unavailable Aguayo, Kirt Primary Care Unavailable Tanphaichitr, Natthjaninet Attending Unavailable Aguayo, Kirt Primary Care Unavailable [...] Primary Care Unavailable Marcanthony, Shweta Attending Unavailable Augayo, Kirt Primary Care Unavailable Marcanthony, Shweta Consulting Unavailable Marcanthony, Shweta Attending Unavailable Aguayo, Kirt Referring Unavailable Marcanthony, Shweat Attending Unavailable Aguayo, Kirt Primary Care Unavailable Marcanthony, Shweta Attending Unavailable Marcanthony, Shweta Referring Unavailable Aguayo, Kirt Primary Care Unavailable Marcanthony, Shweta Attending Unavailable Aguayo, Kirt Referring Unavailable PROBLEMS PROBLEMS DATE TYPE CONDITION / CODE ATTENDING STATUS SOURCE 03/01/2018 Unknown Z34.90 - Encounter Marcanthony, Active [place] for supervision of [facility] normal , Hospital unspecified, Repository unspecified trimester / Z34.90(ICD-10) 02/15/2018 Unknown 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.9 - Unspecified Marcanthony, Active [place] nephritic syndrome [facility] with unspecified Hospital morphologic changes Repository / N05.9(ICD-10) 02/15/2018 Unknown Z68.39 - Body mass Marcanthony, Active [place] index (BMI) [facility] 39.0-39.9, adult / Hospital Z68.39(ICD-10) Repository 02/15/2018 Unknown R73.09 - Other Phillip, Active [place] abnormal glucose / [facility] R73.09(ICD-10) Hospital Repository 02/15/2018 Unknown Z30.9 - Encounter Phillip, Active [place] for contraceptive [facility] management, Hospital unspecified / Repository Z30.9(ICD-10) 02/15/2018 Unknown O09.899 - Phillip, Active [place] Supervision of [facility] other high risk Hospital pregnancies, Repository unspecified trimester / O09.899(ICD-10) 02/15/2018 Unknown Z3A.35 - 35 weeks Phillip, Active [place] gestation of [facility] / Hospital Z3A.35(ICD-10) Repository 02/15/2018 Unknown Z34.02 - Encounter Phillip, Active [place] for supervision of [facility] normal first Hospital , second Repository trimester / Z34.02(ICD-10) 02/01/2018 Unknown O12.13 - Karyn Brewer Active [place] [facility]ational [facility] proteinuria, third Hospital trimester / Repository O12.13(ICD-10) 02/01/2018 Unknown M54.6 - Pain in SanfordKaryn espinosa Active [place] thoracic spine / Community M54.6(ICD-10) Hospital Repository 01/16/2018 Unknown M99.03 - Segmental Dossie, Yamini Active [place] and [facility] dysfunction of Hospital lumbar region / Repository M99.03(ICD-10) 01/16/2018 Unknown M99.01 - Segmental Dossie, Yamini Active [place] and somatic [facility] dysfunction of Hospital cervical region / Repository M99.01(ICD-10) 01/16/2018 Unknown M99.02 - Segmental Dossie, Yamini Active [place] and somatic [facility] dysfunction of Hospital thoracic region / Repository M99.02(ICD-10) 01/16/2018 Unknown M99.04 - Segmental Dossie, Yamini Active [place] and somatic [facility] dysfunction of Hospital sacral region / Repository M99.04(ICD-10) 01/14/2018 Unknown Z3A.30 - 30 weeks Phillip, Active [place] gestation of [facility] / Hospital Z3A.30(ICD-10) Repository 01/03/2018 Unknown Z23 - Encounter for Phillip, Active [place] immunization / [facility] Z23(ICD-10) Hospital Repository 01/03/2018 Unknown Z3A.24 - 24 weeks Marcanthony, Active [place] gestation of [facility] / Hospital Z3A.24(ICD-10) Repository 12/03/2017 Unknown Z04.3 - Encounter Phillip, Active [place] for examination and [facility] Hospital following other Repository accident / Z04.3(ICD-10) 11/16/2017 Unknown M99.05 - Segmental Darling, Yamini Active [place] and somatic [facility] dysfunction of Hospital pelvic region / Repository M99.05(ICD-10) 11/22/2017 Unknown Z34.01 - Encounter Jranthony, Active [place] for supervision of [facility] normal first Hospital , first Repository trimester / Z34.01(ICD-10) 11/05/2017 Unknown Z3A.20 - 20 weeks Jranthval, Active [place] gestation of [facility] / Hospital Z3A.20(ICD-10) Repository 09/20/2017 Unknown Z34.81 - Encounter Phillip, Active [place] for supervision of [facility] other normal Hospital , first Repository trimester / Z34.81(ICD-10) 09/11/2017 Unknown Z36.9 - Encounter Phillip, Active [place] for [facility], [facility] unspecified / Repository Z36.9(ICD-10) 02/04/2018 Unknown M54.9 - DorsalMalina castro Paul Active [place] unspecified / Community M54.9(ICD-10) Hospital Repository PROCEDURES PROCEDURES No Procedure Records FoundRESULTS RESULTS MAPPING ENGINEER OFFICE VISIT Observed: 03/01/2018 Status: F Source: [place] REPORT 5:07 PM [facility] H[facility]PITAL REPOSITORY [facility] [address] [place] [address]. [address] [place] [address] OFFICE VISIT Date of Service: 03/01/18 MR#: [id number] Acct: [id number] Name: PIA ROTHMAN Rep #: [id number] : 1990 Provider: Shweta Dyson MD Age/Sex: 27/F [place] [facility] [place]igned Intake Vital Signs03/01/18 Body Mass Index (BMI) 40.0 03/01/18 Height 5 ft 2 in 03/01/18 Weight: 221 lb 03/01/18 Body Mass Index (BMI) 40.4 03/01/18 Blood Pressure 116/60 Intake Visit Reasons: 36 weeks Hansard Reporter Required: No Is patient in pain?: No Allergies No Known Allergies Allergy (Verified 03/01/18 16:07) Medications vitamin,calcium,jcuejlwa-voaq-zfqwk acid tablet 1 tab PO QDAY 08/13/17 [History Confirmed 03/01/18] aspirin 81 mg chewable tablet 81 mg PO DAILY 10/09/17 [History Confirmed 03/01/18] ranitidine 150 mg tablet 150 mg PO BID #60 tab 11/09/17 [Rx Confirmed 03/01/18] cyclobenzaprine 10 mg tablet 10 mg PO TID PRN #30 tab 01/03/18 [Rx Confirmed 03/01/18] Last Menstral Period: 06/16/17 Zika: Zika virus [...] Elective abortions Hx Para Spontaneous abortions HPI 36 weeks: Details: PIA ROTHMAN is a 27 year old who presents for routine OB visit. OB Visit KRISTINE Calculator Estimated Delivery Date 03/23/18 Based on LMP (certain) 06/16/17 Current WG 36w 6d Number 1 Expected Delivery Route/Plan Specific Issue/Plans [...] Effac lucose ed Visit Notes Visit Date: 03/01/18 no vb lof good fm nor egular ctx Shweta Dyson MD on 03/01/18 Visit Date: 02/22/18 NO VB, LOF. Doing well. Good FM. ARASH LangleyC on 02/22/18 Visit Date: 02/15/18 no vb lof good fm noregular ctx Shweta Dyson MD on 02/15/18 Visit Date: 01/31/18 No visit notes to display Visit Date: 01/31/18 No VB, LOF. Some mid left back pain. No CTX GILL Langley on 01/31/18 Visit Date: 01/14/18 no vb lof good [...] 50 gm 153 mg/dL (70-140) H 01/03/18 Details: HIV: Urine Culture: Sequential Screen: NIPT Screen: Office Procedures OB NST Non-Stress Test Indications for Monitoring: Yes other Heart Rate Baseline: 140 Heart Rate Variability: moderate Movement: Present Heart Rate Accelerations: Present Decelerations: Absent Contractions: Absent Impression: Yes Reactive Non-Stress Test Category 1 Results [id number] Office Urine Glucose Negative Last Edit by Sarah Puckett on 03/01/18 16:12 Office Urine Protein Negative Last Edit by Sarah Puckett on 03/01/18 16:12 Assessment AND Plan Problems 1. Two vessel umbilical cord, antepartum, single gestation O09.899 following with mfm. growth us q 4 weeks, weekly nsts after 32. 2. 36 weeks gestation of Z3A.36 MFM US ordered. echocardiogram-2 vessel cord, weekly NST at 32 weeks, growth US every 4 weeks. NIPT done, low risk, afp- negative. carrier screening declined. Adequate growth scan 02/07/18 repeat in 4 weeks. 3. Abnormal glucose R73.09 3 hr GTT normal 4. Glomerulonephritis N05.9 MPGN with complete resolution- s/p mfm consult, recommend baby ASA, growth US in third trimester 5. Encounter for supervision of normal first in third trimester Z34.03 PRR KRISTINE 03/23/18 girl [place] Plan movement and labor precautions reviewed. ACOG trimester education reviewed and updated. see problem list details for updated plan management information and see below for orders placed at this visit. [place] appropriate handout given. Orders Orders: Plan Detail Goals Decrease pain and spasm Barriers Repetitive lifting Coding Level of Care Code OB Routine Diagnoses Two vessel umbilical cord, antepartum, single gestation O09.899 36 weeks gestation of Z3A.36 Weeks of gestation: 36 weeks Abnormal glucose R73.09 Glomerulonephritis N05.9 Encounter for supervision of normal first in third trimester Z34.03 Normal : normal first Trimester: third trimester Additional Codes Non-Stress Test (09709) 03/01/18 1707 <Electronically signed by Shweta Dyson MD> Date Shweta Dyson MD Cosigner Signature: Date (if applicable) CC: MAPPING ENGINEER OFFICE VISIT Observed: 02/22/2018 Status: F Source: [place] REPORT 3:30 PM [facility] [place] [facility] [address] [place] [address] OFFICE VISIT Date of Service: 02/22/18 MR#: [id number] Acct: [id number] Name: PIA ROTHMAN Rep #: [id number] : 1990 Provider: FLORENTINO Brewer Age/Sex: 27/F [place] [facility] [place]: Signed Intake Vital Signs02/22/18 Body Mass Index (BMI) 39.9 02/22/18 Height 5 ft 2 in 02/22/18 Weight: 219 lb 02/22/18 Body Mass Index (BMI) 40.0 02/22/18 Blood Pressure 118/72 Intake Visit Reasons: 35 weeks Hansard Reporter Required: No Is patient in pain?: No Allergies No Known Allergies Allergy (Verified 02/22/18 15:14) Medications vitamin,calcium,kphndnku-dycs-mngbl acid tablet 1 tab PO QDAY 08/13/17 [History Confirmed 02/22/18] aspirin 81 mg chewable tablet 81 mg PO DAILY 10/09/17 [History Confirmed 02/22/18] ranitidine 150 mg tablet 150 mg PO BID #60 tab 11/09/17 [Rx Confirmed 02/22/18] cyclobenzaprine 10 mg tablet 10 mg PO TID PRN #30 tab 01/03/18 [Rx Confirmed 02/22/18] Last Menstral Period: 06/16/17 Zika: Zika virus [...] safe at home: Yes additional social history: [employer]- Patient is a nurse on [employer] Pregancy History 1 Elective abortions Hx Para Spontaneous abortions HPI 35 weeks: Details: PIA ROTHMAN is a 27 year old who presents for routine OB visit. OB Visit KRISTINE Calculator Estimated Delivery Date 03/23/18 Based on LMP (certain) 06/16/17 Current WG 35w 6d Number 1 Expected Delivery Route/Plan Specific Issue/Plans [...] Effac lucose ed Visit Notes Visit Date: 02/22/18 NO VB, LOF. Doing well. Good FM. GILL Langley on 02/22/18 Visit Date: 02/15/18 no vb lof good fm noregular ctx Shweta Dyson MD on 02/15/18 Visit Date: 01/31/18 No visit notes to display Visit Date: 01/31/18 No VB, LOF. Some mid left back pain. No CTX GILL Langlye on 01/31/18 Visit Date: 01/14/18 no vb lof good [...] 50 gm 153 mg/dL (70-140) H 01/03/18 Details: HIV: Urine Culture: Sequential Screen: NIPT Screen: Results [id number] Office Urine Glucose Negative Last Edit by Sarah Puckett on 02/22/18 15:19 Assessment AND Plan Problems 1. Encounter for supervision of normal first in second trimester Z34.02 PRR KRISTINE 03/23/18 girl [place] 2. 35 weeks gestation of Z3A.35 MFM US ordered. echocardiogram-2 vessel cord, weekly NST at 32 weeks, growth US every 4 weeks. NIPT done, low risk, afp- negative. carrier screening declined. Adequate growth scan 02/07/18 repeat in 4 weeks. 3. Glomerulonephritis N05.9 MPGN with complete resolution- s/p mfm consult, recommend baby ASA, growth US in third trimester 4. Two vessel umbilical cord, antepartum, single gestation O09.899 following with mfm. growth us q 4 weeks, weekly nsts after 32. 5. Encounter for management of intrauterine contraceptive device (IUD), unspecified IUD management type Z30.431 Plan Orders placed: NST at WP today Reviewed of labor precautions, movement/kick counts ACOG trimester education reviewed and updated See problem list details for updated plan of care Gestational age appropriate handout given RTO: 1 week Orders Orders: Plan Detail Goals Decrease pain and spasm Barriers Repetitive lifting Coding Level of Care Code OB Routine Diagnoses Encounter for supervision of normal first in second trimester Z34.02 Normal : normal first Trimester: second trimester 35 weeks gestation of Z3A.35 Weeks of gestation: 35 weeks Glomerulonephritis N05.9 Two vessel umbilical cord, antepartum, single gestation O09.899 Encounter for management of intrauterine contraceptive device (IUD), unspecified IUD management type Z30.431 Contraceptive encounter type: IUD management IUD management: unspecified 02/22/18 1530 <Electronically signed by Karyn GARLAND> Date Karyn GARLAND Cosigner Signature: Date (if applicable) CC: MAPPING ENGINEER OFFICE VISIT Observed: 02/15/2018 Status: F Source: [place] REPORT 4:19 PM [facility] [address] [place] [address]. [address] [place] [address] OFFICE VISIT Date of Service: 02/15/18 MR#: [id number] Acct: [id number] Name: PIA ROTHMAN Rep #: [id number] : 1990 Provider: Shweta Dyson MD Age/Sex: 27/F [place] [facility] [place]: Signed Intake Vital Signs02/15/18 Body Mass Index (BMI) 39.9 02/15/18 Height 5 ft 2 in 02/15/18 Weight: 219 lb 02/15/18 Body Mass Index (BMI) 40.0 Intake Visit Reasons: 34 weeks Chief Complaint: est ob/ NST Hansard Reporter Required: No Is patient in pain?: No Allergies No Known Allergies Allergy (Verified 02/15/18 15:52) Medications vitamin,calcium,cwxtxnab-gvgg-qimur acid tablet 1 tab PO QDAY 08/13/17 [History Confirmed 02/15/18] aspirin 81 mg chewable tablet 81 mg PO DAILY 10/09/17 [History Confirmed 02/15/18] ranitidine 150 mg tablet 150 mg PO BID #60 tab 11/09/17 [Rx Confirmed 02/15/18] cyclobenzaprine 10 mg tablet 10 mg PO TID PRN #30 tab 01/03/18 [Rx Confirmed 02/15/18] Last Menstral Period: 06/16/17 Zika: Zika virus [...] Elective abortions Hx Para Spontaneous abortions HPI 34 weeks: Details: PIA ROTHMAN is a 27 year old who presents for routine OB visit. OB Visit KRISTINE Calculator Estimated Delivery Date 03/23/18 Based on LMP (certain) 06/16/17 Current WG 34w 6d Number 1 Expected Delivery Route/Plan Specific Issue/Plans flu vaccine: given tdap vaccine: tdap given rhogam: NA LARC form signed: declines labor support person: Leonides pain management: epidural cut cord/dad catch: cord : yes PP control planned: mirena IUD special requests: [] Initial Weight: 205 lb Date Weight BP Urine PFHR FuHt Pres MCTX DilatioFetal SVisit NProvideComment rot ov n t ote r s EGA Ef Gluco faced se 08/14/1211 lb 114/70 8 (+7 lb) 8w 2d Visit Notes Visit Date: 02/15/18 no vb lof good fm noregular ctx Shweta Dyson MD on 02/15/18 Visit Date: 01/31/18 No visit notes to display Visit Date: 01/31/18 No VB, LOF. Some mid left back pain. No CTX Karyn Brewer NP-C on 01/31/18 Visit Date: 01/14/18 no vb lof good [...] 50 gm 153 mg/dL (70-140) H 01/03/18 Details: HIV: Urine Culture: Sequential Screen: NIPT Screen: Office Procedures OB NST Non-Stress Test Indications for Monitoring: Yes BMI >40, Yes other Heart Rate Baseline: 130 Heart Rate Variability: moderate Movement: Present Heart Rate Accelerations: Present Decelerations: Absent Contractions: Absent Impression: Yes Reactive Non-Stress Test Category 1 Assessment AND Plan Problems 1. Abnormal glucose R73.09 3 hr GTT normal 2. Unspecified contraceptive management Z30.9 3. Two vessel umbilical cord, antepartum, single gestation O09.899 following with mfm. growth us q 4 weeks, weekly nsts after 32. 4. 35 weeks gestation of Z3A.35 MFM US ordered. echocardiogram-2 vessel cord, weekly NST at 32 weeks, growth US every 4 weeks. NIPT done, low risk, afp- negative. carrier screening declined. Adequate growth scan 02/07/18 repeat in 4 weeks. 5. Glomerulonephritis N05.9 MPGN with complete resolution- s/p mfm consult, recommend baby ASA, growth US in third trimester 6. Encounter for supervision of normal first in second trimester Z34.02 PRR KRISTINE 03/23/18 girl Leonides Plan movement and labor precautions reviewed. ACOG trimester education reviewed and updated. see problem list details for updated plan management information and see below for orders placed at this visit. GA appropriate handout given. Orders Orders: Plan Detail Goals Decrease pain and spasm Barriers Repetitive lifting Coding Level of Care Code OB Routine Diagnoses Abnormal glucose R73.09 Unspecified contraceptive management Z30.9 Two vessel umbilical cord, antepartum, single gestation O09.899 35 weeks gestation of Z3A.35 Weeks of gestation: 35 weeks Glomerulonephritis N05.9 Encounter for supervision of normal first in second trimester Z34.02 Normal : normal first Trimester: second trimester Additional Codes Non-Stress Test (31760) 02/15/18 1619 <Electronically signed by Shweta Dyson MD> Date Shweta Dyson MD Cosigner Signature: Date (if applicable) CC: MAPPING ENGINEER OFFICE VISIT Observed: 02/08/2018 Status: F Source: [place] REPORT 4:21 PM [facility] [address] [place] [address] OFFICE VISIT Date of Service: 02/08/18 MR#: [id number] Acct: [id number] Name: PIA ROTHMAN Rep #: [id number] : 1990 Provider: Shweta Dyson MD Age/Sex: 27/F [place] [facility] [place]: Signed Intake Vital Signs02/08/18 Height 5 ft 2 in 02/08/18 Weight: 218 lb 02/08/18 Body Mass Index (BMI) 39.9 02/08/18 Blood Pressure 102/72 02/08/18 Body Mass Index (BMI) 39.9 Intake Visit Reasons: 33 weeks Chief Complaint: est ob Hansard Reporter Required: No Is patient in pain?: No Allergies No Known Allergies Allergy (Verified 02/08/18 15:48) Medications vitamin,calcium,oczjcoac-vnyv-iiwyb acid tablet 1 tab PO QDAY 08/13/17 [History Confirmed 02/08/18] aspirin 81 mg chewable tablet 81 mg PO DAILY 10/09/17 [History Confirmed 02/08/18] ranitidine 150 mg tablet 150 mg PO BID #60 tab 11/09/17 [Rx Confirmed 01/31/18] cyclobenzaprine 10 mg tablet 10 mg PO TID PRN #30 tab 01/03/18 [Rx Confirmed 02/08/18] Last Menstral Period: 06/16/17 Zika: Zika virus [...] Elective abortions Hx Para Spontaneous abortions HPI 33 weeks: Details: PIA ROTHMAN is a 27 [...] 50 gm 153 mg/dL (70-140) H 01/03/18 Details: HIV: Urine Culture: Sequential Screen: NIPT Screen: Office Procedures OB NST Non-Stress Test Indications for Monitoring: Yes other Heart Rate Baseline: 140 Heart Rate Variability: moderate Movement: Present Heart Rate Accelerations: Present Decelerations: Absent Contractions: Absent Impression: Yes Reactive Non-Stress Test, Yes Unsatisfactory antepartum test Results [id number] Office Urine Glucose Negative Last Edit by Tammy Irvin on 02/08/18 15:53 Office Urine Protein Negative Last Edit by Tammy Irvin on 02/08/18 15:53 Assessment AND Plan Problems 1. Unspecified contraceptive management Z30.9 2. Two vessel umbilical cord, antepartum, single gestation O09.899 following with mfm. growth us q 4 weeks, weekly nsts after 32. 3. 33 weeks gestation of Z3A.33 MFM US ordered. echocardiogram-2 vessel cord, weekly NST at 32 weeks, growth US every 4 weeks. NIPT done, low risk, afp- negative. carrier screening declined. 4. Abnormal glucose R73.09 3 hr GTT normal 5. Glomerulonephritis N05.9 MPGN with complete resolution- s/p mfm consult, recommend baby ASA, growth US in third trimester 6. Encounter for supervision of normal first in second trimester Z34.02 PRR KRISTINE 03/23/18 girl Leonides Plan movement and labor precautions reviewed. ACOG [...] vessel umbilical cord, antepartum, single gestation O09.899 33 weeks gestation of Z3A.33 Weeks of gestation: 33 weeks Abnormal glucose R73.09 Glomerulonephritis N05.9 Encounter for supervision of normal first in second trimester Z34.02 Normal : normal first Trimester: second trimester Additional Codes Non-Stress Test (66865) 02/08/18 1621 <Electronically signed by Shweta Dyson MD> Date Shweta Dyson MD Cosign Signature: Date (if applicable) CC: DISCHARGE SUMMARY Observed: 02/02/2018 Status: F Source: [place] 2:15 PM [facility] Medical Records Department [address] [place] [address] Discharge Summary 02/02/18 1351 MR#: [id number] Acct: [id number] Name: PIA ROTHMAN Rep #: [id number] : 1990 27 From: Gretchen Wilhelm PCP: Kirt Aguayo MD Status: REG RCR Y Location: [facility] Discharge Summary: Discharge Date: 02/01/2018 Pia was seen for a massotherapy evaluation on 04/10/17 with the diagnosis of low back pain. She was treated with one sessions of massage therapy consisting of moderate pressure soft tissue techniques, myofascial release and trigger point compression to her lumbar region and hips. Pia responded well to the therapy by reporting decreased tension in her lower back and hips. Her goals for therapy were not met throughout the treatment sessions due to not scheduling more appointments within the time frame given. At this time this patient is being discharged from our care at [facility] facility. 02/02/18 1415 <Electronically signed by Gretchen Wilhelm > Date Gretchen Wilhelm Cosigner Signature (if applicable): Date CC: Gretchen Wilhelm; Kirt Aguayo MD Signed MAPPING ENGINEER OFFICE VISIT Observed: 02/01/2018 Status: F Source: [place] REPORT 11:24 AM [facility] [address] [place] [address] OFFICE VISIT Date of Service: 01/31/18 MR#: [id number] Acct: [id number] Name: PIA ROTHMAN Rep #: [id number] : 1990 Provider: Shweta Dyson MD Age/Sex: 27/F Location: [facility] Status: Signed Intake Vital Signs01/31/18 Body Mass Index (BMI) 39.1 Intake Visit Reasons: nst Allergies No Known Allergies Allergy (Verified 01/31/18 08:24) Medications vitamin,calcium,eyhhcxta-zavv-pvctw acid tablet 1 tab PO QDAY 08/13/17 [History Confirmed 01/31/18] aspirin 81 mg chewable tablet 81 mg PO DAILY 10/09/17 [History Confirmed 01/31/18] ranitidine 150 mg tablet 150 mg PO BID #60 tab 11/09/17 [Rx Confirmed 01/31/18] cyclobenzaprine 10 mg tablet 10 mg PO TID PRN #30 tab 01/03/18 [Rx Confirmed 01/31/18] Last Menstral Period: 06/16/17 PFSH PFSH Medical History Headaches, cluster (Acute) [...] Elective abortions Hx Para Spontaneous abortions HPI nst: Details: PIA ROTHMAN is a 27 year old who presents for routine OB visit. OB Visit KRISTINE Calculator Estimated Delivery Date 03/23/18 Based on LMP (certain) 06/16/17 Current WG 32w 6d Number 1 Expected Delivery Route/Plan Specific Issue/Plans [...] Effac lucose ed Visit Notes Visit Date: 01/31/18 No visit notes to display Visit Date: 01/31/18 No VB, LOF. Some mid left back pain. No CTX GILL Langley on 01/31/18 Visit Date: 01/14/18 no vb lof good [...] HIV: Urine Culture: Sequential Screen: NIPT Screen: Office Procedures OB NST Non-Stress Test Indications for Monitoring: Yes BMI >40 Heart Rate Baseline: 140 Heart Rate Variability: moderate Movement: Present Heart Rate Accelerations: Present Decelerations: Absent Contractions: Absent Impression: Yes Reactive Non-Stress Test Category 1 Results BMSUA2 Office Urine Glucose Negative Last Edit by Sailaja Mueller on 01/31/18 09:04 Office Urine Protein Trace Last Edit by Sailaja Mueller on 01/31/18 09:04 BMSUA Office Urine Color YELLOW Last Edit by Sailaja Mueller on 01/31/18 09:49 Assessment AND Plan Orders Orders: Plan Detail Goals Decrease pain and spasm Barriers Repetitive lifting Coding Level of Care Code OB Routine Additional Codes Non-Stress Test (86991) 02/01/18 1124 <Electronically signed by Shweta Dyson MD> Date Shweta Dyson MD Cosigner Signature: Date (if applicable) CC: PROTEIN+CREATININE Collected: Status: F Source: [place] RATIO,URINE 01/31/2018 5:35 PM [facility] TYPE CODE TESTS RESULT OUT OF RANGE REFERENCE UNITS LAB L501.1200 NO RANGE EST. mg/dL Normal UR CREAT 241.00 LAB L501.1930 <11.9 mg/dL High 50.5 PROTEIN,UR.R AN. LAB L501.1940 0-200 mg/g CRE High PROT:CRE 210 RATIO Performed By: #### L501.0900, M100.0650 #### [facility] [address] [place], [place], [address] Observed: 01/31/2018 Status: F Source: [place] CULTURE, URINE 5:35 PM [facility] Urine Culture Culture exhibits no growth. Performed By: #### L501.0900, M100.0650 #### [facility] [address] [place], [address] MAPPING ENGINEER OFFICE VISIT Observed: 01/31/2018 Status: F Source: [place] REPORT 10:25 AM [facility] [address] [place] [address] OFFICE VISIT Date of Service: 01/31/18 MR#: [id number] Acct: [id number] Name: PIA ROTHMAN Rep #: [id number] : 1990 Provider: FLORENTINO Brewer Age/Sex: 27/F [place] [facility] [place]: Signed Intake Vital Signs01/31/18 Body Mass Index (BMI) 39.1 01/31/18 Weight: 216 lb 8 oz 01/31/18 Blood Pressure 136/84 H Intake Visit Reasons: 32 weeks/NST Chief Complaint: Est OB Accompanied by: Is patient in pain?: No Allergies No Known Allergies Allergy (Verified 01/31/18 08:24) Medications vitamin,calcium,picfuiuc-wvic-kjtbt acid tablet 1 tab PO QDAY 08/13/17 [History Confirmed 01/31/18] aspirin 81 mg chewable tablet 81 mg PO DAILY 10/09/17 [History Confirmed 01/31/18] ranitidine 150 mg tablet 150 mg PO BID #60 tab 11/09/17 [Rx Confirmed 01/31/18] cyclobenzaprine 10 mg tablet 10 mg PO TID PRN #30 tab 01/03/18 [Rx Confirmed 01/31/18] Last Menstral Period: 06/16/17 Zika: Zika virus [...] Elective abortions Hx Para Spontaneous abortions HPI 32 weeks/NST: Details: PIA ROTHMAN is a 27 year old who presents for routine OB visit. OB Visit KRISTINE Calculator Estimated Delivery Date 03/23/18 Based on LMP (certain) 06/16/17 Current WG 32w 5d Number 1 Expected Delivery Route/Plan Specific Issue/Plans flu vaccine: given tdap vaccine: tdap given rhogam: NA LARC form signed: declines labor support person: Leonides pain management: epidural cut cord/dad catch: cord : yes PP control planned: mirena IUD special requests: [] Initial Weight: 205 lb Date Weight BP Urine PFHR FuHt Pres MCTX DilatioFetal SVisit NProvideComment rot ov n t ote r s EGA Ef Gluco faced se 08/14/1211 lb 114/70 8 (+7 lb) 8w 2d Visit Notes Visit Date: 01/31/18 No VB, LOF. Some mid left back pain. No CTX ARASH LangleyC on 01/31/18 Visit Date: 01/14/18 no vb lof good [...] Office Urine Glucose Negative Last Edit by Sailaja Mueller on 01/31/18 09:04 Office Urine Protein Trace Last Edit by Sailaja Mueller on 01/31/18 09:04 BMSUA Office Urine Color YELLOW Last Edit by Sailaja Mueller on 01/31/18 09:49 Assessment AND Plan Problems 1. Encounter for supervision of normal first in second trimester Z34.02 PRR KRISTINE 03/23/18 girl Leonides 2. 32 weeks gestation of Z3A.32 MFM US ordered. echocardiogram-2 vessel cord, weekly NST at 32 weeks, growth US every 4 weeks. NIPT done, low risk, afp- negative. carrier screening declined. 3. Glomerulonephritis N05.9 MPGN with complete resolution- s/p mfm consult, recommend baby ASA, growth US in third trimester 4. Acute left-sided thoracic back pain M54.6 Plan Orders placed: NST, urine protein creatinine ratio, urine culture Reviewed of labor precautions, movement/kick counts ACOG trimester education reviewed and updated See problem list details for updated plan of care Gestational age appropriate handout given RTO: 1 week NST only Orders Orders: Plan Detail Goals Decrease pain and spasm Barriers Repetitive lifting Coding Level of Care Code OB Routine Diagnoses Encounter for supervision of normal first in second trimester Z34.02 Normal : normal first Trimester: second trimester 32 weeks gestation of Z3A.32 Weeks of gestation: 32 weeks Glomerulonephritis N05.9 Acute left-sided thoracic back pain M54.6 Back pain laterality: left Back pain location: thoracic back pain Chronicity: acute 01/31/18 1025 <Electronically signed by Karyn GARLAND> Date Karyn Brewer CORPORATE CONTROLLER-C Cosigner Signature: Date (if applicable) CC: CHIROPRACTIC REPORT Observed: 01/15/2018 Status: F Source: [place] 9:02 AM [facility] [address] [place] [address] OFFICE VISIT Date of Service: 01/15/18 MR#: [id number] Acct: [id number] Name: PIA ROTHMAN Rep #: [id number] : 1990 Provider: Yamini Abraham D.C. Age/Sex: 27/F [place] [facility] [place]: Signed Intake Vital Signs01/15/18 Height 5 ft 2 in 01/15/18 Weight: 214 lb 01/15/18 Body Mass Index (BMI) 39.1 Intake Visit Reasons: back pain Chief Complaint: bilateral hip pain Is patient in pain?: Yes Allergies No Known Allergies Allergy (Verified 01/14/18 09:09) Medications vitamin,calcium,rzxwhtrs-viuc-nlpao acid tablet 1 tab PO QDAY 08/13/17 [...] Additional Codes Procedures - Manipulation: 3-4 regions (13649) 01/15/18 09 <Electronically signed by Yamini Abraham D.C.> Date Yamini Abraham D.C. Cosigner Signature: Date (if applicable) CC: MAPPING ENGINEER OFFICE VISIT Observed: 01/14/2018 Status: F Source: [place] REPORT 9:30 AM [facility] [address] [place] [address] OFFICE VISIT Date of Service: 01/14/18 MR#: [id number] Acct: [id number] Name: PIA ROTHMAN Rep #: [id number] : 1990 Provider: Shweta Dyson MD Age/Sex: 27/F [place] [facility] [place]: Signed Intake Vital Signs01/14/18 Body Mass Index (BMI) 39.4 01/14/18 Height 5 ft 2 in 01/14/18 Weight: 214 lb 8 oz 01/14/18 Body Mass Index (BMI) 39.2 01/14/18 Blood Pressure 122/72 H Intake Visit Reasons: 30 weeks Hansard Reporter Required: No Is patient in pain?: No Allergies No Known Allergies Allergy (Verified 01/14/18 09:09) Medications vitamin,calcium,oelxxrkf-tdnr-ryvzg acid tablet 1 tab PO QDAY 08/13/17 [...] good fm n oregular ctx.cbc gct tdap hSweta Dyson MD on 01/03/18 Visit Date: 12/03/17 Doing well. Reviewed 2 vessel cord. No VB, ISIS ARASH LangleyC on 12/03/17 Visit Date: 10/09/17 Doing well. No VB, STEVANJeannine ARASH LangleyC on 10/09/17 Visit Date: 09/11/17 [...] 3HR Collected: 01/08/2018 Status: F Source: [place] RamG 6:58 AM [facility] Order Comment: Is Patient Fasting? Y [...] 3HR 105 Performed By: #### L500.4710 #### [facility] [address], [address] MAPPING ENGINEER OFFICE VISIT Observed: 01/03/2018 Status: F Source: [place] REPORT 2:59 PM [facility] [address] [place], [place] [address] OFFICE VISIT Date of Service: 01/03/18 MR#: [id number] Acct: [id number] Name: PIA ROTHMAN Rep #: [id number] : 1990 Provider: Shweta Dyson MD Age/Sex: 27/F [place] [facility] [place]: Signed Intake Vital Signs01/03/18 Height 5 ft 2 in 01/03/18 Weight: 216 lb 01/03/18 Body Mass Index (BMI) 39.4 01/03/18 Blood Pressure 104/60 Intake Visit Reasons: 28 weeks Chief Complaint: est ob Hansard Reporter Required: No Is patient in pain?: No Allergies No Known Allergies Allergy (Verified 01/03/18 13:30) Medications vitamin,calcium,xivrakoy-kpew-ufnnq acid tablet 1 tab PO QDAY 08/13/17 [...] vessel cord. No VB, LOF Karyn Brewer CORPORATE CONTROLLER-C on 12/03/17 Visit Date: 10/09/17 Doing well. No VB, LOF Karyn Brewer CORPORATE CONTROLLER-C on 10/09/17 Visit Date: 09/11/17 feeling anxious Swheta Dyson MD on 09/11/17 Visit Date: 08/13/17 [...] Admin Location Lot Number Expiration Date NDC Pipe Threading Machine Operator 0.5 mL IM Left Arm (SQ) [id number] 11/30/19 26771-511-12 [employer]PASTEUR VIS Given Date VIS Publication Date [...] 01/03/2018 Status: F Source: [place] 2:28 PM [facility] TYPE CODE TESTS RESULT OUT OF [...] Lymph 1.51 Performed By: #### L100.0100 #### [facility] [address] [place], [address] GLUCOSE CHALLENGE GEST Collected: 01/03/2018 Status: F Source: [place] 1H 50G 2:28 PM [facility] TYPE CODE TESTS RESULT OUT OF RANGE REFERENCE UNITS LAB L501.0250 70-140 mg/dL High GLU GEST 153 50g 1H Performed By: #### L501.0250 #### [facility] [address] [place], [address] MAPPING ENGINEER OFFICE VISIT Observed: 12/03/2017 Status: F Source: [place] REPORT 3:35 PM [facility] [address] [place] [address] OFFICE VISIT Date of Service: 12/03/17 MR#: [id number] Acct: [id number] Name: PIA ROTHMAN Rep #: [id number] : 1990 Provider: FLORENTINO Brewer Age/Sex: 27/F [place] [facility]: Signed Intake Vital Signs12/03/17 Height 5 ft 2 in 12/03/17 Weight: 215 lb 8 oz 12/03/17 Body Mass Index (BMI) 39.4 12/03/17 Blood Pressure 118/78 Intake Visit Reasons: 24 weeks Hansard Reporter Required: No Accompanied by: Is patient in pain?: No Allergies No Known Allergies Allergy (Verified 12/03/17 08:13) Medications vitamin,calcium,nafpoufd-rlwi-aozwm acid tablet 1 tab PO QDAY 08/13/17 [...] unspecified 12/03/17 1535 <Electronically signed by Karyn GARLAND> Date Karyn GARLAND Cosigner Signature: Date (if applicable) CC: CHIROPRACTIC REPORT Observed: 11/19/2017 Status: F Source: HURON 9:[address] [facility] [address] [place] [address] OFFICE VISIT Date of Service: 11/15/17 MR#: [id number] Acct: [id number] Name: PIA ROTHMAN Rep #: [id number] : 1990 Provider: Yamini Abraham D.C. Age/Sex: 26/F [place] [facility] [place] Status: Signed Intake Vital Signs11/15/17 Height 5 ft 2 in 11/15/17 Weight: 211 lb 11/15/17 Body Mass Index (BMI) 38.5 Intake Visit Reasons: back pain Chief Complaint: R sided low back pain Is patient in pain?: Yes Allergies No Known Allergies Allergy (Verified 11/05/17 09:56) Medications vitamin,calcium,zabadtft-rhaa-aykvh acid tablet 1 tab PO QDAY 08/13/17 [...] Additional Codes Procedures - Manipulation: 3-4 regions (69178) 11/19/17 0915 <Electronically signed by Yamini Abraham D.C.> Date Yamini Abraham D.C. Cosigner Signature: Date (if applicable) CC: CHIROPRACTIC REPORT Observed: 11/06/2017 Status: F Source: HURON 9:[address] [facility] [address] [place] [address] OFFICE VISIT Date of Service: 11/06/17 MR#: [id number] Acct: [id number] Name: PIA ROTHMAN Rep #: [id number] : 1990 Provider: Yamini Abraham D.C. Age/Sex: 26/F [place] [facility] [place] Status: Signed Intake Vital Signs11/06/17 Height 5 ft 2 in 11/06/17 Weight: 211 lb 11/06/17 Body Mass Index (BMI) 38.5 Intake Visit Reasons: back pain Is patient in pain?: Yes Allergies No Known Allergies Allergy (Verified 11/05/17 09:56) Medications vitamin,calcium,knfxjmcm-lidq-ubade acid tablet 1 tab PO QDAY 08/13/17 [History Confirmed 11/05/17] aspirin 81 mg chewable tablet 81 mg PO DAILY 10/09/17 [History Confirmed 11/05/17] PFSH Medical History Headaches, cluster (Acute) Heart [...] Additional Codes Procedures - Manipulation: 3-4 regions (49909) 11/06/17 0928 <Electronically signed by Yamini Abraham D.C.> Date Yamini Abraham D.C. Cosigner Signature: Date (if applicable) CC: MISCELLANEOUS LAB Collected: 11/05/2017 Status: F Source: [place] PROCEDURE 10:46 AM [facility] Order Comment: Comments: [id number] msAFP GEL BARRIER TUBE RT Test(s) Ordered: [id number] msAFP GEL BARRIER TUBE RT TYPE CODE TESTS RESULT OUT OF RANGE REFERENCE UNITS LAB L801.1541 Normal [facility] LAB TEST Result Comment: TEST RESULT UNITS [...] AFP MoM 0.64 OSBR Risk 1 [place] [address] Interpretation Interpretation: Screen Negative This result is [...] Customer Services to discuss available options. The [employer] recommends amniocentesis be offered to women age 35 and older. Comment: Ysabel Luis, Ph.D., [facility] Principal Genetics Factory Worker References: Available Upon Request. Multiples Of Median Cutoffs Iglesias 2.5 Black 2.8 IDD 2.0 Twins 4.5 Abbreviation Definitions IDD - Insulin Dep Diabetes OSBR - Open Spina Bifida Risk For further inquiries contact [facility] Genetics Services at [phone]. TESTING PERFORMED AT [facility]. ORIGINAL REPORT ON FILE IN LAB CONTAINS ADDITIONAL TEST SITE INFORMATION. Performed By: #### L801.1541 #### [facility] [address] [place], [address] MAPPING ENGINEER OFFICE VISIT Observed: 11/05/2017 Status: F Source: [place] REPORT 10:23 AM [facility] [address] [place] [address] OFFICE VISIT Date of Service: 11/05/17 MR#: [id number] Acct: [id number] Name: PIA ROTHMAN Rep #: [id number] : 1990 Provider: Shweta Dyson MD Age/Sex: 26/F [place] [facility] [place]: [place] Intake Vital Signs11/05/17 Height 5 ft 2 in 11/05/17 Weight: 211 lb 11/05/17 Body Mass Index (BMI) 38.5 11/05/17 Blood Pressure 124/80 H Intake Visit Reasons: 20 weeks Accompanied by: Allergies No Known Allergies Allergy (Verified 11/05/17 09:56) Medications vitamin,calcium,jrsvurpw-fbij-nohlj acid tablet 1 tab PO QDAY 08/13/17 [...] CHIROPRACTIC REPORT Observed: 10/24/2017 Status: F Source: [place] 8:[address] [facility] [address] [place] [address] OFFICE VISIT Date of Service: 10/24/17 MR#: [id number] Acct: [id number] Name: PIA ROTHMAN Rep #: [id number] : 1990 Provider: Yamini Abraham D.C. Age/Sex: 26/F [place] [facility] [place]: Signed Intake Vital Signs10/24/17 Height 5 ft 2 in 10/24/17 Weight: 206 lb 10/24/17 Body Mass Index (BMI) 37.6 Intake Visit Reasons: Back pain Is patient in pain?: Yes Allergies No Known Allergies Allergy (Verified 10/09/17 08:23) Medications vitamin,calcium,whcwygbv-xpiz-xitzp acid tablet 1 tab PO QDAY 08/13/17 [History Confirmed 10/09/17] aspirin 81 mg chewable tablet 81 mg PO DAILY 10/09/17 [History Confirmed 10/09/17] [facility] Medical History Headaches, cluster (Acute) Heart [...] Additional Codes Procedures - Manipulation: 3-4 regions (60010) 10/24/17 0851 <Electronically signed by Yamini Abraham D.C.> Date Yamini Abraham D.C. Cosigner Signature: Date (if applicable) CC: CHIROPRACTIC REPORT Observed: 10/17/2017 Status: F Source: [place] 9:[address] [facility] [address] [place] [address] OFFICE VISIT Date of Service: 10/16/17 MR#: [id number] Acct: [id number] Name: PIA ROTHMAN Rep #: [id number] : 1990 Provider: Yamini Abraham D.C. Age/Sex: 26/F [place] [facility] [place] Status: Signed Intake Vital Signs10/16/17 Height 5 ft 2 in 10/16/17 Weight: 206 lb 10/16/17 Body Mass Index (BMI) 37.6 Intake Visit Reasons: back pain Is patient in pain?: Yes Allergies No Known Allergies Allergy (Verified 10/09/17 08:23) Medications vitamin,calcium,xvbsktpc-huel-piblt acid tablet 1 tab PO QDAY 08/13/17 [...] Additional Codes Procedures - Manipulation: 3-4 regions (51587) 10/17/17 2719 <Electronically signed by Yamini Abraham D.C.> Date Yamini Abraham D.C. Cosigner Signature: Date (if applicable) CC: CBC-COMPLETE BLOOD CNT Collected: 10/10/2017 Status: F Source: [place] NO DIFF 8:14 AM [facility] [place] TYPE CODE TESTS RESULT OUT OF [...] MPV 10.2 Performed By: #### L100.0500 #### [facility] [address] [place], [address] RENAL PROFILE Collected: 10/10/2017 Status: F Source: [place] 8:14 AM [facility] TYPE CODE TESTS RESULT OUT OF [...] 24.0 Performed By: #### L500.3600, L501.5200 #### [facility] [address] [place], [place], [address] MAGNESIUM Collected: 10/10/2017 Status: F Source: [place] 8:14 AM [facility] TYPE CODE TESTS RESULT OUT OF RANGE REFERENCE UNITS LAB L501.5200 1.6-2.6 mg/dL Normal MG 1.8 Performed By: #### L500.3600, L501.5200 #### [facility] [address] [place], [place], [address] MICROALB:CREAT Collected: 10/10/2017 Status: F Source: [place] RATIO,RANDOM UR 8:14 AM [facility] TYPE CODE TESTS RESULT OUT OF RANGE REFERENCE UNITS LAB L501.1200 NO RANGE EST. mg/dL Normal UR CREAT 211.00 LAB L502.0500 NO RANGE EST. mg/L Normal 20.1 MICROALBUMIN ,UR LAB L502.0600 <30 mg/g CRE mg/g CRE Normal 9.5 MALB:CREAT Performed By: #### L502.0250 #### [facility] [address] [place], [place], [address] MAPPING ENGINEER OFFICE VISIT Observed: 10/09/2017 Status: F Source: [place] REPORT 9:17 AM [facility] [address] [place] [address] OFFICE VISIT Date of Service: 10/09/17 MR#: [id number] Acct: [id number] Name: PIA ROTHMAN Rep #: [id number] : 1990 Provider: FLORENTINO Brewer Age/Sex: 26/F [place] [facility] [place] Signed Intake Vital Signs10/09/17 Height 5 ft 2 in 10/09/17 Weight: 206 lb 8 oz 10/09/17 Body Mass Index (BMI) 37.8 10/09/17 Blood Pressure 114/65 Intake Visit Reasons: 16 weeks Hansard Reporter Required: No Accompanied by: Is patient in pain?: No Allergies No Known Allergies Allergy (Verified 10/09/17 08:23) Medications vitamin,calcium,wuskmfll-wxbd-ijhwo acid tablet 1 tab PO QDAY 08/13/17 [...] Negative Last Edit by Pia Aguilar on 09/04/18 08:28 Office Urine Protein Negative Last Edit [...] Status: F Source: [place] PROCEDURE 9:37 AM [facility] Order Comment: Comments: 2 SPECIAL TIGER TOPS Test(s) Ordered: HEMALATHAORADARELL SEND OUT TYPE CODE TESTS RESULT OUT OF RANGE REFERENCE UNITS LAB L801.1541 Normal [facility] TEST Result Comment: Sent directly to testing facility per ordering physician. @ 09/17/17 1433 MYOUNG Performed By: #### L801.1541 #### [facility] [address] [place], [address] MAPPING ENGINEER OFFICE VISIT Observed: 09/11/2017 Status: F Source: [place] REPORT 9:20 AM [facility] [address] [place] [address] OFFICE VISIT Date of Service: 09/11/17 MR#: [id number] Acct: [id number] Name: PIA ROTHMAN Rep #: [id number] : 1990 Provider: Shweta Dyson MD Age/Sex: 26/F [place] [facility] [place]: Signed Intake Vital Signs09/11/17 Height 5 ft 2 in 09/11/17 Weight: 207 lb 09/11/17 Body Mass Index (BMI) 37.8 09/11/17 Blood Pressure 105/63 Intake Visit Reasons: 12 weeks Hansard Reporter Required: No Accompanied by: Is patient in pain?: No Allergies No Known Allergies Allergy (Verified 09/11/17 09:00) Medications vitamin,calcium,jwgswnrn-smtn-jslif acid tablet 1 tab PO QDAY 08/13/17 [...] BY PCR Collected: 08/13/2017 Status: F Source: [place] 6:04 PM [facility] TYPE CODE TESTS RESULT OUT OF RANGE REFERENCE UNITS LAB L8200.2100 Negative Normal Chlam Negative Trac PCR LAB L8200.2200 Negative Normal NG by Negative PCR Performed By: #### L8200.1999, M100.0650 #### [facility] [address] [place], [address] Observed: 08/13/2017 Status: F Source: [place] CULTURE, URINE 6:04 PM [facility] Urine Culture Culture exhibits no growth. Performed By: #### L8200.1999, M100.0650 #### [place] [facility] [address] [place], [address] MAPPING ENGINEER OFFICE VISIT Observed: 08/13/2017 Status: F Source: [place] REPORT 10:35 AM [facility] [address] [place] [address] OFFICE VISIT Date of Service: 08/13/17 MR#: [id number] Acct: [id number] Name: PIA ROTHMAN Rep #: [id number] : 1990 Provider: Shweta Dyson MD Age/Sex: 26/F [place] [facility] [place]: Signed Intake Vital Signs08/13/17 Height 5 ft 2 in 08/13/17 Weight: 212 lb 08/13/17 Body Mass Index (BMI) 38.7 08/13/17 Blood Pressure 114/70 Intake Visit Reasons: NOB LMP 06/16 Chief Complaint: NEW OB Hansard Reporter Required: No Is patient in pain?: No Allergies No Known Allergies Allergy (Verified 08/13/17 09:26) Medications vitamin,calcium,pwgocand-gita-obvnv acid tablet 1 tab PO QDAY 08/13/17 [...] Pulmonary (e.g.,TB,Asthma), Seasonal allergies, Drug/latex allergies/reactions, Breast, Manufacturing Automation Engineer surgery, Operations/hospitalizations, Anesthetic complications, History of abnormal [...] appearing, comfortable, no acute distress Orientation: alert [facility] Head: normal to inspection, atraumatic, normocephalic Ears: [...] 08/13/2017 Status: F Source: [place] 10:25 AM [facility] TYPE CODE TESTS RESULT OUT OF [...] 1.83 Performed By: #### L100.0100, B101.7450 #### [facility] [address] [place], [address] TYPE AND SCREEN Collected: 08/13/2017 Status: F Source: [place] 10:25 AM [facility] Order Comment: Reason for Type AND Screen/Red Cells: TYPE CODE TESTS RESULT OUT OF RANGE REFERENCE UNITS LAB B10.0800 O Normal BLOOD TYPE GEL POSITIVE LAB B100.4000 Normal Antibody NEGATIVE Screen Performed By: #### L100.0100, B101.7450 #### [facility] [address] [place], [place], [address] COMPREHENSIVE METABOLIC Collected: 08/13/2017 Status: F Source: [facility] 10:25 AM [facility] TYPE CODE TESTS RESULT OUT OF [...] 10 Performed By: #### L500.4050, L501.0250 #### [facility] [address] [place], [address] GLUCOSE CHALLENGE GEST Collected: 08/13/2017 Status: F Source: [place] 1H 50G 10:25 AM [facility] TYPE CODE TESTS RESULT OUT OF RANGE REFERENCE UNITS LAB L501.0250 70-140 mg/dL Normal GLU GEST 122 50g 1H Performed By: #### L500.4050, L501.0250 #### [facility] [address] [place], [place], [address] RUBELLA IGG Collected: 08/13/2017 Status: F Source: [place] 10:25 AM [facility] TYPE CODE TESTS RESULT OUT OF RANGE REFERENCE UNITS LAB L509.4000 IU/mL Normal Rubella IgG 290.4 Result Comment: Antibody results Interpretation of Immune Status < 5 IU/ml Presumed Non-immune 5 - < 10 IU/ml Equivocal > or = 10 IU/ml Presumed Immune Performed By: #### L509.4000, L3890.6005, L700.5000 #### [facility] [place], [address] #### L3100.0390, L7000.7000 #### [facility] (refer to report for specific site) refer to report for address and phone number HIV - [facility] Collected: 08/13/2017 Status: F Source: [place] 10:25 AM [facility] TYPE CODE TESTS RESULT OUT OF RANGE REFERENCE UNITS LAB L3890.6005 Nonreactive Normal HIV - WC Non-Reactive Performed By: #### L509.4000, L3890.6005, L700.5000 #### [facility] [place], [address] #### L3100.0390, L7000.7000 #### [facility] (refer to report for specific site) refer to report for address and phone number HEPATITIS B SURFACE Collected: 08/13/2017 Status: F Source: [place] AG 10:25 AM [facility] TYPE CODE TESTS RESULT OUT OF RANGE REFERENCE UNITS LAB L3100.0400 Negative Normal HB Negative SURF AG Result Comment: Performed at: - [facility] [id number] Jury Consultant: Dale Donohue MD, Phone: [phone] Performed at: [facility] [id number] Jury Consultant: Monster Conley PhD, Phone: [phone] Performed By: #### L509.4000, L3890.6005, L700.5000 #### [facility] [address] [place] [address]. [place], [address] #### L3100.0390, L7000.7000 #### [facility] (refer to report for specific site) refer to report for address and phone number HEPATITIS C,RNA PCR Collected: 08/13/2017 Status: F Source: [place] VIRAL LOAD 10:25 AM [facility] TYPE CODE TESTS RESULT OUT OF RANGE REFERENCE UNITS LAB L7000.7100 . IU/mL HCV Normal HCV Not Detected QT PCR LAB L7000.7350 . Test Normal HCV not performed log 10 LAB L7000.7500 . Normal TEST Comment INFO: Result Comment: The quantitative range of this assay is 15 IU/mL to 100 million IU/mL. Performed By: #### L509.4000, L3890.6005, L700.5000 #### [facility] [address] [place] [address]. [place], [address] #### L3100.0390, L7000.7000 #### [facility] (refer to report for specific site) refer to report for address and phone number RAPID PLASMIN REAGIN Collected: 08/13/2017 Status: F Source: [place] (RPR) 10:25 AM [facility] TYPE CODE TESTS RESULT OUT OF REFERENCE UNITS RANGE LAB L700.5000 NONREACTIVE NONREACTIVE Normal RPR Performed By: #### L509.4000, L3890.6005, L700.5000 #### [facility] [address] [place] [address]. [place], [address] #### L3100.0390, L7000.7000 #### [facility] (refer to report for specific site) refer to report for address and phone number PAP I-G W/RFX Collected: 08/13/2017 Status: F Source: [place] HRHPV-APTIMA 8:30 AM [facility] Order Comment: CYTOLOGY INFORMATION: - CLINICAL INFORMATION: - DATE LMP/MENOPAUSE: LMP/ 06/16/17 - COLLECTION VIAL: Thin Prep Vial - [facility] SOURCE: CERVICAL - COLLECTION TECHNIQUE: BRUSH ONLY/ CERVIX BROOM ONLY Specimen Comment: [id number] Specimen Comment: No. of containers..01 ThinPrep Vial TYPE CODE TESTS RESULT OUT OF RANGE REFERENCE UNITS LAB L7400.0800 . Normal DIAGN Comment Result Comment: NEGATIVE FOR INTRAEPITHELIAL LESION AND MALIGNANCY. LAB L7400.0900 . Normal ADEQ Comment Result Comment: Satisfactory for evaluation. Endocervical and/or squamous metaplastic cells (endocervical component) are present. LAB L7400.1400 . Normal PERFORM Comment Result Comment: Carey Ye, Director Print (ASCP) LAB L7400.2575 . Normal TEST METHOD [...] no HPV testing was performed. Performed at: [address] [id number] Jury Consultant: Susie Mosqueda MD, Phone: [phone] Performed By: #### L7400.0353 #### [facility] (refer to report for specific site) refer to report for address and phone number MASSAGE THERAPY Observed: 05/28/2017 Status: F Source: [place] EVALUATION 8:14 PM [facility] [address] [place] [address] Fax REHABILITATION SERVICES INITIAL EVALUATION MR#: [id number] Acct: [id number] Name: PIA ROTHMAN Rep #: [id number] : 1990 26 From: Gretchen Wilhelm Referring Dr.: Kirt Aguayo MD Status: REG RCR Insurance: [facility] SELF PAY INSURANCE Massage Therapy Evaluation: Initial Evaluation: Date: 04/10/17 Pt Name: Pia Rothman : [birth year] V#:[id number] Referring Phys: Dr. 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 Pia is currently taking contrave, pre vitamins as medications. Objective: The first treatment [...] 05/24/2017 Status: F Source: [place] 8:42 AM [facility] TYPE CODE TESTS RESULT OUT OF [...] Lymph 2.66 Performed By: #### L100.0200 #### [facility] [address] [place], [address] NICOTINE URINE DRUG Collected: 05/24/2017 Status: F Source: [place] SCREEN 8:42 AM [facility] TYPE CODE TESTS RESULT OUT OF [...] of Nicotine. Performed By: #### L505.6240 #### [facility] [address] [facility] [address] [place], [place], [address] URINALYSIS, EMPLOYEE Collected: 05/24/2017 Status: F Source: [place] 8:42 AM [facility] TYPE CODE TESTS RESULT OUT OF [...] 25 ESTERASE Performed By: #### L400.0100 #### [facility] [address] [place], [place], [address] EMPLOYEE PROFILE Collected: 05/24/2017 Status: F Source: [place] 8:42 AM [facility] TYPE CODE TESTS RESULT OUT OF [...] LDH 187 Performed By: #### L500.2900 #### [facility] [address] [place], [address] PROGRESS NOTE Observed: 03/26/2017 Status: COMPLETED Source: [place] 2:30 PM [facility] REPOSITORY Maternal Medicine Consult Date of Service: [...] No Muscular Dystrophy No Cystic Fibrosis No Fillmore's Chorea No Mental Retardation/Autism No Maternal Metabolic [...] 03/26/2017 Medication Sig Dispense Refill Prenat w/o X-CM-Yxfplja-FA-DHA (PNV-DHA PO) Take 1 Tab by mouth [...] Burgos MD Observed: 03/24/2017 Status: F Source: [place] URINE CULTURE 11:28 PM [facility] REPOSITORY Sp. Request/Comment: - Specimen received in preservative Culture Result - <10,000 CFU/ml Lactose positive gram negative bacilli --> ABNORMAL ALERT Insignificant colony count. No further workup. --> ABNORMAL ALERT 10,000 - <50,000 CFU/ml Normal urogenital parish Performed By: #### URCUL #### [facility] [address] [place] [id number] PROGRESS Observed: 03/24/2017 Status: COMPLETED Source: [place] 3:07 PM [facility] REPOSITORY HNO ID: [id number] Author: Luz uJlio Service: (none) Author Type: Nurse Practitioner Type: Progress Notes Filed: 03/24/2017 3:18 PM Note Text: Subjective The history is provided by the patient. No sign language translator was used. BARON Rothman is a 26 year old female [...] children: Occupational History Occupation Employer Comment student [employer] Social History Main Topics Smoking status: [...] Neg neg Ketones, Urine Neg trace Specific [place], Ur 1.005 - 1.030 1.005 Hemoglobin/Blood,Ur Neg [...] F Source: [place] PROFILE (BMP) 7:45 AM [facility] Order Comment: Order Date: 03/16/17 Order [...] GAP 8 Performed By: #### L500.2500 #### [facility] [address] [place], [place], [address] CHIROPRACTIC REPORT Observed: 03/15/2017 Status: F Source: [place] 4:48 PM [facility] [address] [place], [place] [address] OFFICE VISIT Date of Service: 03/15/17 MR#: [id number] Acct: [id number] Name: PIA ROTHMAN Rep #: [id number] : 1990 Provider: Yamini Abraham D.C. Age/Sex: 26/F [place] [facility] [place] Status: Signed Intake Vital Signs03/15/17 Height 5 [...] Additional Codes Procedures - Manipulation: 3-4 regions (50724) Procedures - Electrical Stimulation: 15 mins (11551) Procedures - Traction, Mechanical: Yes (12333) 03/15/17 1648 <Electronically signed by Yamini Abrhaam D.C.> Date Yamini Abraham D.C. Cosigner Signature: Date (if applicable) CC: CHIROPRACTIC REPORT Observed: 03/12/2017 Status: F Source: [place] 2:[address] [facility] [address] [place] [address] OFFICE VISIT Date of Service: 03/08/17 MR#: [id number] Acct: [id number] Name: PIA ROTHMAN Rep #: [id number] : 1990 Provider: Yamini Abraham D.C. Age/Sex: 26/F [place] [facility] Status: Signed Intake Vital Signs03/08/17 Height 5 [...] Additional Codes Procedures - Manipulation: 3-4 regions (62160) Procedures - Electrical Stimulation: 15 mins (22579) Procedures - Traction, Mechanical: Yes (70947) 03/12/17 1425 <Electronically signed by Yamini Abraham D.C.> Date Yamini Abraham D.C. Cosigner Signature: Date (if applicable) CC: CHIROPRACTIC REPORT Observed: 03/12/2017 Status: F Source: [place] 8:[address] [facility] [address] [place] [address] OFFICE VISIT Date of Service: 03/07/17 MR#: [id number] Acct: [id number] Name: PIA ROTHMAN Venkat Rep #: [id number] : 1990 Provider: Yamini Abraham D.C. Age/Sex: 26/F [place] [facility] Status: Signed Intake Vital Signs03/07/17 Height 5 ft 1.5 in 03/07/17 Weight: 213 lb 5 oz 03/07/17 Body Mass Index (BMI) 39.6 Intake Visit Reasons: back pain Is patient in pain?: Yes Allergies No Known Allergies Allergy (Unverified 02/27/17 10:11) Medications cyclobenzaprine 10 mg tablet 10 mg PO Q8H 02/22/17 [History Confirmed 02/27/17] [facility] Medical History Headaches, cluster (Acute) Heart [...] Codes Procedures - Electrical Stimulation: 15 mins (72137) Procedures - Manipulation: 3-4 regions (52043) Procedures - Traction, Mechanical: Yes (15593) 03/12/17 0815 <Electronically signed by Yamini Abraham D.C.> Date Yamini Abraham D.C. Cosigner Signature: Date (if applicable) CC: ALLERGIES ALLERGIES DATE TYPE / CODE NAME / CODE REACTION SEVERITY SOURCE 03/01/2018 Drug No Known Unknown [place] Allergy/272227978(S Allergies/F0019 [facility] NOMED CT) [address]408(RXNORM) Hospital Repository Miscellaneous NO KNOWN [place] Allergy/667139961(S ALLERGIES [facility] Hospital Repository Drug NO KNOWN [place] Class/286785180(SNO ALLERGIES [facility] Repository ENCOUNTERS ENCOUNTERS ADMIT/DISCHARGE ACCOUNT ADMITTING ENCOUNTER LOCATION SOURCE NUMBER CLASS 03/01/2018 [id number] Ambulatory [facility] Hospital ing:LABSPEC Repository 03/01/2018/03/01/19 [id number] Ambulatory BMSBuilding:[place] [address] [facility] Repository 02/26/2018 [id number] Ambulatory BMSBuilding:[place] [facility] Repository 02/22/2018/02/22/19 [id number] Ambulatory [address] Hospital ing:WPOUTRoom Repository : WP013 02/22/2018/02/22/19 [id number] Ambulatory BMSBuilding:B [place] [address] Repository 02/15/2018/02/15/19 [id number] Ambulatory BMSBuilding:B [place] [address] Repository 02/08/2018/02/08/19 [id number] Ambulatory BMSBuilding:B [place] [address] Repository 02/07/2018/02/07/19 [id number] Ambulatory Building:[address] Repository 02/05/2018/02/05/19 [id number] Ambulatory [address] Hospital ing:WPOUTRoom Repository : WP013 01/31/2018 [id number] Ambulatory [facility] Hospital ing:LABSPEC Repository 01/31/2018/02/01/20 [id number] Ambulatory BMSBuilding:B [place] [address] Repository 01/31/2018/02/01/20 [id number] Ambulatory BMSBuilding:B [place] [address] Repository 01/15/2018/01/16/20 [id number] Ambulatory BMSBuilding:B [place] [address] [facility] Repository 01/14/2018/01/15/20 [id number] Ambulatory BMSBuilding:B [place] [address] Repository 01/10/2018 [id number] Ambulatory Building:[facility] Repository 01/08/2018 [id number] Ambulatory [facility] Hospital ing:LAB Repository 01/03/2018 [id number] Ambulatory [facility] Hospital ing:PAVLAB Repository 01/03/2018/01/04/20 [id number] Ambulatory BMSBuilding:B [place] [address] [facility] Repository 12/06/2017/12/07/19 [id number] Ambulatory Building:[address] Repository 12/03/2017/12/04/19 [id number] Ambulatory BMSBuilding:B [place] [address] Repository 12/02/2017 [id number] Ambulatory BMSBuilding:B [place] MS.[facility] Repository 11/29/2017/11/30/19 [id number] Ambulatory [address] Hospital ing:WPOUTRoom Repository : WP013 11/22/2017/11/23/19 [id number] Ambulatory Building:[address] Repository 11/15/2017/11/16/19 [id number] Ambulatory BMSBuilding:B [place] [address] [facility] Repository 11/06/2017/11/07/19 [id number] Ambulatory BMSBuilding:B [place] [address] [facility] Repository 11/05/2017 [id number] Ambulatory [facility] Hospital ing:LAB Repository 11/05/2017/11/06/19 [id number] Ambulatory BMSBuilding:B [place] [address] Repository 11/05/2017/11/06/19 [id number] Ambulatory Building:[address] Repository 10/24/2017/10/25/19 [id number] Ambulatory BMSBuilding:B [place] [address] [facility] Repository 10/16/2017/10/17/19 [id number] Ambulatory BMSBuilding:B [place] [address] [facility] Repository 10/13/2017 [id number] Ambulatory [facility] Hospital ing:MASS Repository 10/10/2017 [id number] Ambulatory [facility] Hospital ing:LAB.FUTUR Repository E 10/09/2017/10/10/19 [id number] Ambulatory BMSBuilding:B [place] [address] [facility] Repository 09/11/2017 [id number] Ambulatory [facility] Hospital ing:LAB Repository 09/11/2017/09/12/19 [id number] Ambulatory BMSBuilding:B [place] [address] [facility] Repository 08/13/2017 [id number] Ambulatory [facility] Hospital ing:LAB Repository 08/13/2017/08/14/19 [id number] Ambulatory BMSBuilding:B [place] [address] [facility] Repository 05/24/2017 [id number] Ambulatory [facility] ing:LAB Repository 04/10/2017/04/11/19 [id number] Ambulatory [address] ing:MASS Repository 03/26/2017/03/26/19 [id number] Ambulatory Building:[address] Repository 03/24/2017/03/24/19 [id number] Ambulatory [address] Repository 03/22/2017 [id number] Ambulatory [facility] Hospital ing:LAB Repository 03/15/2017/03/15/19 [id number] Ambulatory BMSBuilding:B [place] 18 MS.[facility] Repository 03/08/2017/03/08/19 [id number] Ambulatory BMSBuilding:B [place] 18 MS.[facility] Repository 03/07/2017/03/07/19 [id number] Ambulatory BMSBuilding:B [place] 18 MS.[facility] Repository PAYERS PAYERS ENCOUNTER GUARANTOR PAYER SUBSCRIBER SOURCE 03/01/2018 PIA E Primary PIA Venkat Delgadillo [id number] Insurance:[facility] MUTUAL SMUCKERDOB: [facility] [id number] County Hospital [address]Ahe: (330) SERVICESPolicy Repository [phone] () Number: [id number] e Date:3263-09-47TF [address] [address]UWQUODWOJ, [place] [address]AV: CHECK WEBSITE 03/01/2018 Secondary NOT GIVENUNK [place] Insurance:SELF PAY [facility] Number: Effective Repository Date:2018-03-01 03/01/2018 PIA E Primary PIA E [place] [id number] [facility] [id number] [address]Ejy: (330) SERVICESPolicy Repository [phone] () Number: [id number] e Date:4707-18-85HU [address] [address]EAYUKHBKU, [place] [address]CJ: CHECK WEBSITE 03/01/2018 Secondary NOT GIVENUNK [place] Insurance:SELF PAY [facility] Number: Effective Repository Date:2017-12-03 02/26/2018 PIA E Primary PIA E [place] [id number] Insurance:[facility]: [facility] [id number] [place] [address]Hre: (330) SERVICESPolicy Repository [phone] () Number: [id number] e Date:3352-15-58HT [address] [address]ZGAWOOWCW, [place] [address]ZG: CHECK WEBSITE 02/26/2018 Secondary NOT GIVENUNK [place] Insurance:SELF PAY [facility] Number: Effective Repository Date:2018-02-26 02/22/2018 PIA E Primary PIA E [place] [id number] Insurance:[facility]: [facility] [id number] [place] [address]Aeb: (330) SERVICESPolicy Repository [phone] () Number: [id number] e Date:8015-64-74AD [address] [address]ODDUIHMTS, [place] [address]RU: CHECK WEBSITE 02/22/2018 Secondary NOT GIVENUNK [place] Insurance:SELF PAY [facility] Number: Effective Repository Date:2018-02-22 02/22/2018 PIA E Primary PIA E [place] [id number] [facility] [id number] [place] [address]Jra: (330) SERVICESPolicy Repository [phone] () Number: [id number] e Date:7552-48-82EL [address] [address]UCFINDMWG, [place] [address]XV: CHECK WEBSITE 02/22/2018 Secondary NOT GIVENUNK [place] Insurance:SELF PAY [facility] Number: Effective Repository Date:2018-02-22 02/15/2018 PIA E Primary PIA E [place] [id number] Insurance:[facility] SMUCKERDOB: [facility] 1964-53-96KMHGuadalupe County Hospital [address]Ftl: (330) SERVICESPolicy Repository [phone] () Number: [id number] e Date:5611-15-10NX [address] [address]CZBQLEOWK, [place] [address]OU: CHECK WEBSITE 02/15/2018 Secondary NOT GIVENUNK [place] Insurance:SELF PAY [facility] Number: Effective Repository Date:2018-02-15 02/08/2018 PIA E Primary PIA E [place] [id number] [facility] [id number] County Hospital [address]Quv: (330) SERVICESPolicy Repository [phone] () Number: [id number] e Date:6845-45-76YX [address] [address]ZENDIHNEM, [place] [address]EE: CHECK WEBSITE 02/08/2018 Secondary NOT GIVENUNK [place] Insurance:SELF PAY [facility] Number: Effective Repository Date:2018-02-08 02/07/2018 PIA Primary PIA [place] SÁNCHEZFRMANFRED Insurance:[facility] Children[facility] U[facility]ERDOB[facility] [id number] Number: [id number] Repository [facility] [id number] [facility] [address]Ovx: (330) e Date: [place], [place] [phone] () [phone] 02/05/2018 PIA E Primary PIA E [place] [id number] Insurance:[facility]: [facility] [id number] County Hospital [address]Eov: (330) SERVICESPolicy Repository [phone] () Number: [id number] e Date:8059-50-04BA [address] [address]WLGLJPVRN, [place] [address]IA: CHECK WEBSITE 02/05/2018 Secondary NOT GIVENUNK [place] Insurance:SELF PAY [facility] Number: Effective Repository Date:2018-02-05 01/31/2018 PIA E Primary PIA E [place] [id number] Insurance:[facility]: [facility] 2626-27-89CYPGuadalupe County Hospital [address]Xzv: (330) SERVICESPolicy Repository [phone] () Number: [id number] e Date:3875-77-47HF [address] [address]JIKJJROCD, [place] [address]ZT: CHECK WEBSITE 01/31/2018 Secondary NOT GIVENUNK [place] Insurance:SELF PAY [facility] Number: Effective Repository Date:2018-01-31 01/31/2018 PIA E Primary PIA E [place] [id number] Insurance:[facility]: [facility] 2744-18-24ANOGuadalupe County Hospital [address]Ihw: (330) SERVICESPolicy Repository [phone] () Number: [id number] e Date:3502-07-30OV [address] [address]EKYECIWTD, [place] [address]PC: CHECK WEBSITE 01/31/2018 Secondary NOT GIVENUNK [place] Insurance:SELF PAY [facility] Number: Effective Repository Date:2018-01-31 01/31/2018 PIA E Primary PIA E [place] [id number] Insurance:[facility]: [facility] [id number] County Hospital [address]Yam: (330) SERVICESPolicy Repository [phone] () Number: [id number] e Date:6265-83-44VW [address] [address]ZMFLIPTHM, [place] [address]KP: CHECK WEBSITE 01/31/2018 Secondary NOT GIVENUNK [place] Insurance:SELF PAY [facility] Number: Effective Repository Date:2017-12-03 01/15/2018 PIA E Primary PIA E [place] [id number] Insurance:[facility] MUTUAL SMUCKERDOB: [facility] [id number] County Hospital [address]Rde: (330) SERVICESPolicy Repository [phone] () Number: [id number] e Date:9445-15-08AC [address] [address]IFVFDLAQX, [place] [address]HG: CHECK WEBSITE 01/15/2018 Secondary NOT GIVENUNK [place] Insurance:SELF PAY [facility] Number: Effective Repository Date:2018-01-15 01/14/2018 PIA E Primary PIA E [place] [id number] Insurance:[facility]: [facility] 2501-77-05QRGGuadalupe County Hospital [address]Pgd: (330) SERVICESPolicy Repository [phone] () Number: [id number] e Date:3625-32-78AB [address] [address]OQLGNAKSR, [place] [address]YA: CHECK WEBSITE 01/14/2018 Secondary NOT GIVENUNK [place] Insurance:SELF PAY [facility] Number: Effective Repository Date:2018-01-14 01/10/2018 PIA Primary PIA R[place] HOLA Insurance:[facility]FR[facility] UCKERDOB[facility] [id number] Number: [id number] Repository [facility], [id number] [facility] [address]Mlu: (330) e Date: [place], [place] [phone] () [address] 01/08/2018 PIA E Primary PIA E [place] [id number] Insurance:[facility]: [facility] [id number] County Hospital [address]Ixs: (330) SERVICESPolicy Repository [phone] () Number: [id number] e Date:4365-51-40KX [address] [address]NTNILZIXY, [place] [address]HC: CHECK WEBSITE 01/08/2018 Secondary NOT GIVENUNK [place] Insurance:SELF PAY [facility] Number: Effective Repository Date:2018-01-03 01/03/2018 PIA E Primary PIA E [place] [id number] Insurance:[facility] SMUCKERDOB: [facility] 2074-75-93UHGGuadalupe County Hospital [address]Nwn: (330) SERVICESPolicy Repository [phone] () Number: [id number] e Date:7287-08-18JX [address] [address]UXIZDZCWV, [place] [address]II: CHECK WEBSITE 01/03/2018 Secondary NOT GIVENUNK [place] Insurance:SELF PAY [facility] Number: Effective Repository Date:2018-01-03 01/03/2018 PIA E Primary PIA E [place] [id number] Insurance:[facility]DOB: [facility] [id number] County Hospital [address]Fky: (330) SERVICESPolicy Repository [phone] () Number: [id number] e Date:0266-89-77OR [address] [address]DEOBZDJRZ, [place] [address]UA: CHECK WEBSITE 01/03/2018 Secondary NOT GIVENUNK [place] Insurance:SELF PAY [facility] Number: Effective Repository Date:2018-01-03 12/06/2017 PIA Primary PIA Eliud SIMENTAL Insurance:MEDICAL ELIZABETHFRMANFRED Children's SMUCKERDOB: [facility] SMUCKERDOB: [facility] [id number] Number: [id number] Repository [facility] [id number] [facility] [address]Jon: (330) e Date: [place], [place] [phone] () [phone] 12/03/2017 PIA E Primary PIA E [place] [id number] Insurance:[facility] SMUCKERDOB: [facility] [id number] County Hospital [address]Dho: (330) SERVICESPolicy Repository [phone] () Number: [id number] e Date:6335-33-10OD [address] [address]HDKYUJDTI, [place] [address]PA: CHECK WEBSITE 12/03/2017 Secondary NOT GIVENUNK [place] Insurance:SELF PAY [facility] Number: Effective Repository Date:2017-12-03 12/02/2017 PIA E Primary PIA E [place] [id number] Insurance:[facility]ERDOB: [facility] [id number] County Hospital [address]Pru: (330) SERVICESPolicy Repository [phone] () Number: [id number] e Date:5591-77-26GN [address] [address]KEIFESCUO, [place] [address]OL: CHECK WEBSITE 12/02/2017 Secondary NOT GIVENUNK [place] Insurance:SELF PAY [facility] Number: Effective Repository Date:2017-12-02 11/29/2017 PIA E Primary PIA E [place] [id number] Insurance:[facility]: [facility] [id number] County Hospital [address]Qie: (330) SERVICESPolicy Repository [phone] () Number: [id number] e Date:3209-25-89UV [address] [address]VWRZKLMHX, [place] [address]TM: CHECK WEBSITE 11/29/2017 Secondary NOT GIVENUNK [place] Insurance:SELF PAY [facility] Number: Effective Repository Date:2017-11-29 11/22/2017 PIA Primary PIA Eliud SIMENTAL Insurance:[facility] [place] Children's UCKERDOB[facility] [id number] Number: [id number] Repository [facility] [id number] [facility] [address]Gwq: (330) e Date: [place], [place] [phone] () [address] 11/15/2017 PIA E Primary PIA E [place] [id number] [facility] [id number] [place] [address]Jcg: (330) SERVICESPolicy Repository [phone] () Number: [id number] e Date:4918-70-31SM [address] [address]FFSIIBCUK, [place] [address]IM: CHECK WEBSITE 11/15/2017 Secondary NOT GIVENUNK [place] Insurance:SELF PAY [facility] Number: Effective Repository Date:2017-11-15 11/06/2017 PIA E Primary PIA E [place] [id number] Insurance:[facility]: [facility] [id number] County Hospital [address]Nri: (330) SERVICESPolicy Repository [phone] () Number: [id number] e Date:6730-26-12HE [address] [address]CXHNWGBBVJoshua [place] [address]WP: CHECK WEBSITE 11/06/2017 Secondary NOT GIVENUNK [place] Insurance:SELF PAY [facility] Number: Effective Repository Date:2017-11-06 11/05/2017 PIA E Primary PIA E [place] [id number] Insurance:[facility]: [facility] [id number] County Hospital [address]Ofu: (330) SERVICESPolicy Repository [phone] () Number: [id number] e Date:6100-12-08FV [address] [address]TFJYOMGFD, [place] [address]CH: CHECK WEBSITE 11/05/2017 Secondary NOT GIVENUNK [place] Insurance:SELF PAY [facility] Number: Effective Repository Date:2017-11-05 11/05/2017 PIA E Primary PIA E [place] [id number] [facility] [id number] [place] [address]Rwn: (330) SERVICESPolicy Repository [phone] () Number: [id number] e Date:2481-66-66PQ [address] [address]TSAAVIYWL, [place] [address]HA: CHECK WEBSITE 11/05/2017 Secondary NOT GIVENUNK [place] Insurance:SELF PAY [facility] Number: Effective Repository Date:2017-10-18 11/05/2017 PIA Primary PIA FRAGALIZBETHLANCASTER MUNICIPAL HOSPITALMANFRED Insurance:[facility]ILIZBETHMercy Medical Center's SMUCKERDOB: [facility] SMUCKERDOB: [facility] [id number] Number: [id number] Repository [facility], [id number] [facility] [address]Ihz: (330) e Date: [place] [phone] () [phone] 10/24/2017 PIA E Primary PIA E [place] [id number] Insurance:[facility] SMUCKERDOB: [facility] [id number] County Hospital [address]Sfg: (330) SERVICESPolicy Repository [phone] () Number: [id number] e Date:2275-60-72[facility] [address]SFRSKELOY, [place] [address]UP: CHECK WEBSITE 10/24/2017 Secondary NOT GIVENUNK [place] Insurance:SELF PAY [facility] Number: Effective Repository Date:2017-10-24 10/16/2017 PIA E Primary PIA E [place] [id number] Insurance:[facility] SMUCKERDOB: [facility] [id number] County Hospital [address]Cle: (330) SERVICESPolicy Repository [phone] () Number: [id number] e Date:6623-02-93HZ [address] [address]RZDUBLEXT, [place] [address]MQ: CHECK WEBSITE 10/16/2017 Secondary NOT GIVENUNK [place] Insurance:SELF PAY [facility] Number: Effective Repository Date:2017-10-16 10/13/2017 PIA E Primary NOT GIVENUNK [place] [id number] Insurance:SELF PAY [facility] [address]Lzq: (330) Number: Effective Repository [phone] () Date:2017-05-04 10/10/2017 PIA E Primary PIA E [place] [id number] Insurance:[facility] [id number] [place] [address]Cwf: (330) SERVICESPolicy Repository [phone] () Number: [id number] e Date:9131-74-65DS [address] [address]XMYNVSWJD, [place] [address]QP: CHECK WEBSITE 10/10/2017 Secondary NOT GIVENUNK [place] Insurance:SELF PAY [facility] Number: Effective Repository Date:2017-10-10 10/09/2017 PIA E Primary PIA E [place] [id number] Insurance:[facility]: [facility] [id number] [place] [address]Phn: (330) SERVICESPolicy Repository [phone] () Number: [id number] e Date:6548-15-34UL [address] [address]BCDUPSNJL, [place] [address]TN: CHECK WEBSITE 10/09/2017 Secondary NOT GIVENUNK [place] Insurance:SELF PAY [facility] Number: Effective Repository Date:2017-10-09 09/11/2017 PIA E Primary PIA E [place] [id number] Insurance:[facility]: [facility] [id number] [place] [address]Zbd: (330) SERVICESPolicy Repository [phone] () Number: [id number] e Date:9440-55-48EJ [address] [address]LOCWDNNWA, [place] [address]YB: CHECK WEBSITE 09/11/2017 Secondary NOT GIVENUNK [place] Insurance:SELF PAY [facility] Number: Effective Repository Date:2017-09-11 09/11/2017 PIA E Primary PIA E [place] [id number] Insurance:[facility] [id number] [place] [address]Yfo: (330) SERVICESPolicy Repository [phone] () Number: [id number] e Date:2977-57-00OF [address] [address]JBUMACBDW, [place] [address]TZ: CHECK WEBSITE 09/11/2017 Secondary NOT GIVENUNK [place] Insurance:SELF PAY [facility] Number: Effective Repository Date:2017-09-11 08/13/2017 PIA E Primary PIA E [place] [id number] [facility] [id number] County Hospital [address]Ykb: (330) SERVICESPolicy Repository [phone] () Number: [id number] e Date:8254-90-33VJ [address] [address]DPIQJMIGR, [place] [address]CL: CHECK WEBSITE 08/13/2017 Secondary NOT GIVENUNK [place] Insurance:SELF PAY [facility] Number: Effective Repository Date:2017-08-13 08/13/2017 PIA E Primary PIA E [place] [id number] Insurance:[facility]: [facility] [id number] County Hospital [address]Lxb: (330) SERVICESPolicy Repository [phone] () Number: [id number] e Date:7195-02-87NZ [address] [address]JHGOLNURO, [place] [address]WZ: CHECK WEBSITE 08/13/2017 Secondary NOT GIVENUNK [place] Insurance:SELF PAY [facility] Number: Effective Repository Date:2017-08-13 05/24/2017 PIA E Primary NOT GIVENUNK [place] [id number] Insurance:SELF PAY [facility] [address]Rrf: (330) Number: Effective Repository [phone] () Date:2017-05-24 04/10/2017 PIA E Primary PIA E [place] [id number] Insurance:[facility]: [facility] [id number] County Hospital [address]Tnq: (330) SERVICESPolicy Repository [phone] () Number: [id number] e Date:5147-66-10NB [address] [address]XKABGZBMC, [place] [address]QJ: CHECK WEBSITE 04/10/2017 Secondary NOT GIVENUNK [place] Insurance:SELF PAY [facility] Number: Effective Repository Date:2017-03-30 03/26/2017 ROSALIA MARCELLE Primary PIA SÁNCHEZ Rivas LIADOB: Insurance:MEDICAL SMUCKERDOB: Children's [id number] [facility] [id number] [facility], Number: [place] Repository [place] [address]Nqa: (330 [id number] [place] [phone] (HP) e Date: 03/22/2017 PIA E Primary PIA E [place] [id number] Insurance:[facility] SMUCKERDOB: [facility] [id number] County Hospital [address]Ydz: (330) SERVICESPolicy Repository [phone] () Number: [id number] e Date:1453-08-00LE [address] [address]VOKKEYFQI, [place] [address]DV: CHECK WEBSITE 03/22/2017 Secondary NOT GIVENUNK [place] Insurance:SELF PAY [facility] Number: Effective Repository Date:2017-03-22 03/15/2017 PIA E Primary PIA E [place] [id number] Insurance:[facility]ERB: [facility] [id number] County Hospital [address]Zgz: (330) SERVICESPolicy Repository [phone] () Number: [id number] e Date:1967-42-82ZV [address] [address]LLNKLOXJO, [place] [address]BF: CHECK WEBSITE 03/15/2017 Secondary NOT GIVENUNK [place] Insurance:SELF PAY [facility] Number: Effective Repository Date:2017-03-08 03/08/2017 PIA E Primary PIA E [place] [id number] Insurance:[facility]: [facility] [id number] [place] [address]Cik: (330) SERVICESPolicy Repository [phone] () Number: [id number] e Date:0098-24-50UB [address] [address]XSVVLIQDC, [place] [address]PM: CHECK WEBSITE 03/08/2017 Secondary NOT GIVENUNK [place] Insurance:SELF PAY [facility] Number: Effective Repository Date:2017-02-28 03/07/2017 PAI E Primary PIA E [place] [id number] Insurance:[facility]ERD[facility]: [facility] [id number] County Hospital [address]Fcb: (330) SERVICESPolicy Repository [phone] () Number: [id number] e Date:8909-81-44CD [address] [address]IYQANPNQK, [place] [address]UW: CHECK WEBSITE 03/07/2017 Secondary NOT GIVENUNK [place] Insurance:SELF PAY [facility] Number: Effective Repository Date:2017-02-28
== END 2018-02-22 16:30 | disposition home or self-care (01) ==
LOC: WPOUT 15:41 → WP 15:41
PROVIDERS: Family Provider Family Medicine; PCP Family Medicine; Referring Provider Obstetrics & Gynecology; Visit Provider Obstetrics & Gynecology
DX: O35.8XX0 Maternal care for other (suspected) fetal abnormality and damage, not applicable or unspecified (principal); Z3A.00 Weeks of gestation of pregnancy not specified
CPT/HCPCS: 59025; 99218; G0378

== ENCOUNTER → 2018-03-01 16:58 | Outpatient (CLI) | payer OTHER, SELFPAY ==
[2018-03-01 16:28] VITALS: BMI 40.0
== END ==
PROVIDERS: Family Provider Family Medicine; PCP Family Medicine; Referring Provider Obstetrics & Gynecology; Visit Provider Obstetrics & Gynecology
DX: Z34.90 Encounter for supervision of normal pregnancy, unspecified, unspecified trimester (principal)
CPT/HCPCS: 87081

== ENCOUNTER 2018-03-27 15:34 | Inpatient (IN) | payer OTHER, SELFPAY ==
[2018-03-01 16:28] VITALS: BMI 40.0
[2018-03-27 14:30] VITALS: BMI 40.0
[2018-03-27 15:46] VITALS: BMI 40.4
[2018-03-27] MEDS: Lactated Ringers 1,000 ML 50 ML IV ×3 (15:58→22:23)
[2018-03-27 16:19] LABS: Hematocrit 34.6 % (37-47); Hemoglobin 12.2 g/dl (12.0-15.0); Mean Corp Hgb Conc 35.3 g/gl (32-36); Mean Corpuscular Hgb 29.7 pg (27.0-32.0); Mean Corpuscular Volume 84.2 fL (81-99); Mean Platelet Vol. 10.7 fl (6.2-12.0); Platelet Count 198 K/mm3 (150-450); RBC Distribution Width CV 13.4 % (11.6-14.6); RBC Distribution Width SD 39.8 fl (35.1-43.9); Red Blood Count 4.11 M/mm3 (4.2-5.4); White Blood Count 13.4 K/mm3 (4.4-11.0)
[2018-03-27 16:22] LABS: Scan Indicated on CBC? Y/N NO
[2018-03-27] MEDS: Oxytocin 30 units/NS 500 ml 30 UNITS/500 ML IV.SOLN IV (17:29)
--- NOTE | 2018-03-27 17:31 | PCM.HP.OB ---
- Problem List (1) PROM (premature rupture of membranes) Status: Acute (2) Prolonged rupture of membranes Status: Acute (3) Abnormal glucose Status: Acute Comment: 3 hr GTT normal (4) Unspecified contraceptive management Status: Acute Comment: Mirena IUD 6wk pp-needs insurance auth after 02/05/18 (5) Segmental and somatic dysfunction of pelvic region Status: Acute (6) Two vessel umbilical cord, antepartum, single gestation Status: Acute Comment: following with mfm. growth us q 4 weeks, weekly nsts after 32. (7) Segmental and somatic dysfunction of sacral region Status: Acute (8) Status: Acute Qualifiers: Comment: MFM US ordered. echocardiogram-2 vessel cord, weekly NST at 32 weeks, growth US every 4 weeks. NIPT done, low risk, afp- negative. carrier screening declined. Adequate growth scan 02/07/18 repeat in 4 weeks. Adequate growth scan on 03/11 (9) Glomerulonephritis Status: Acute Comment: MPGN with complete resolution- s/p mfm consult, recommend baby ASA, growth US in third trimester (10) Supervision of normal Status: Acute Qualifiers: Comment: PRR KRISTINE 03/23/18 girl Paco (11) Segmental and somatic dysfunction of thoracic region Status: Acute (12) Segmental and somatic dysfunction of cervical region Status: Acute (13) Segmental and somatic dysfunction of lumbar region Status: Acute History Date of Admission: 03/27/18 Final KRISTINE: 03/23/18 Gestational age: 40 Weeks and 4 Days History of this : This is a 27 year-old, at 40 weeks gestational age presents with PROM of unknown duration clear fluid. she thinks she has been leaking small amounts for several days. she is gbs negative. she dneies any vb and admits some contractions and feels good fm. she has had a complicated by 2 VC. Medical History: Medical History (Last Reviewed 03/27/18 @ 14:20 by Tammy Irvin) Headaches, cluster G44.009 Heart murmur R01.1 Kidney disease N28.9 h/o apendectomy osteoprosis Surgical History: Surgical History (Last Reviewed 03/27/18 @ 14:20 by Tammy Irvin) History of tonsillectomy Z98.890, Z90.89 kidney biopsy Allergies No Known Allergies Allergy (Verified 03/27/18 14:20) Home Medications: Home Medications vitamin,calcium,ipuwgznz-xipt-vvrvx acid tablet 1 tab PO QDAY 08/13/17 aspirin 81 mg chewable tablet 81 mg PO DAILY 10/09/17 cyclobenzaprine 10 mg tablet 10 mg PO TID PRN #30 tab 01/03/18 Ranitidine HCl [Acid Control] 150 mg PO BID 03/27/18 Smoking Status: Never smoker Alcohol: None Number of Fetus(es): 1 Heart Tracin moderate variability no accels cat II tracing toco q 3-4 History Past Pregnancies: Past Pregnancies Delivery Date Name GA/Weeks Outcome Route Weight Infant Gender Labor Length Anesthesia Delivery Location Provider FOB Labs: Mom's Labs & Results 03/27/18 03/27/18 16:00 16:00 WBC 13.4 H RBC 4.11 L Hgb 12.2 Hct 34.6 L MCV 84.2 MCH 29.7 MCHC 35.3 RDW 13.4 RDW Differential 39.8 Plt Count 198 MPV 10.7 Blood Type Pending Antibody Screen Pending Course Did the patient receive Yes care? Labs Blood Type: O RH: POSITIVE RPR/VDRL/Syphilis Nonreactive Rubella status Immune HbSAg Negative Date Done: 08/13/17 Chlamydia Negative Gonorrhea Negative HIV/AIDS Non-Reactive Group B Strep: Negative Current Obstetrical History Gestational Diabetes No Incompetent Cervix No Infertility No IUGR No Macrosomia No Hypertension/Pre-eclampsia No Placenta Previa/Abruption No PTL/PROM No Uterine anomaly No Oligohydramnios No Polyhydramnios No Multiple gestation No Past Medical History Asthma No Diabetes No Hypertension No Heart disease No Mitral valve prolapse No Neurologic/Seizure disorder/ No Migraines Kidney disease Yes: a form of nephritis Liver disease No Varicosities No Clotting disorders/Hx of DVT No Thyroid Dysfunction No Other medical diseases No Psychiatric disorders Yes: anxiety Major trauma No Abnormal PAP smear No Sleep apnea No Mammogram in the last 2 years No Social History Marital Status: Alleged father Paco Hx Smoking No Smoking Status Never smoker How long have you used no substances (years)? What date/time did you last no use any of the above? Expected Infant Delivery Method: Spontaneous Vaginal Review of Systems Constitutional: Denies: Fever, Malaise Eyes: Denies: Blurred vision, Vision Change HEENT: Denies: Head Aches, Visual Changes Cardiovascular: Denies: Chest Pain, Palpitations Respiratory: Denies: Cough, Shortness of Breath, Wheezing Gastrointestinal: Denies: Abdominal Pain, Diarrhea, Nausea, Vomiting Genitourinary: Denies: Dysuria, Hematuria Gynecological: Reports: Vaginal discharge Musculoskeletal: Denies: Joint Pain, Muscle pain Skin: Denies: Lesions, Rash Neurological: Denies: Blurred vision, Focal weakness, Headaches Psychiatric: Denies: Anxiety, Depression Endocrine: Denies: Heat/ Cold Intolerance Hematologic/ Lymphatic: Denies: Easy Bruising, Easy Bleeding Physical Exam General: Alert, Cooperative, No apparent distress HEENT: Atraumatic, Normocephalic. Negative for: Thyromegaly, Lymphadenopathy Cardiovascular: Regular rate Lungs: Normal air movement Abdomen: Soft, Non Tender, Gravid Neurological: Deep Tendon Reflexes 2+/4 and Symmetrical, Neuro grossly intact. Negative for: Clonus BANANA EXPERT: Normal external genitalia. Negative for: Vulvar lesions Estimated gestational size: Appropriate for gestational size Presentation: Cephalic Cervix Dilation (cm): 3 Station: -2 Effacement (%): 80 Assessment/Plan All Active Problems (Last Reviewed 03/27/18 @ 14:20 by Tammy Irvin) PROM (premature rupture of membranes) (Acute) Prolonged rupture of membranes (Acute) Abnormal glucose (Acute) Unspecified contraceptive management (Acute) Segmental and somatic dysfunction of pelvic region (Acute) Two vessel umbilical cord, antepartum, single gestation (Acute) Segmental and somatic dysfunction of sacral region (Acute) (Acute) Glomerulonephritis (Acute) Supervision of normal (Acute) Segmental and somatic dysfunction of thoracic region (Acute) Segmental and somatic dysfunction of cervical region (Acute) Segmental and somatic dysfunction of lumbar region (Acute) Back pain (Resolved) Fall (Resolved) This is a 27 year-old, , at 40 weeks gestational age with PROM Patient presents IOL, plan management for , pitocin per protocol. Pain management: plans epidural. GBS negative. Management of any complications: will start antibiotics due to borderline fever and prolonged rupture of membranes, tachycardia. I have reviewed the [facility] and made any clinically relevant updates.
[2018-03-27] MEDS: fentaNYL-bupivacaine (epidural) 100 ML BAG EPIDURAL (19:20)
[2018-03-27] MEDS: Ondansetron 4 MG/2 ML Vial IV (20:24)
[2018-03-27] MEDS: Acetaminophen 325 MG Tablet PO (21:47)
[2018-03-28] MEDS: Amnioinfusion- 0.9% NS 1,000 ML IV.SOLN. 500 ML INTRA-UTER (00:11)
--- NOTE | 2018-03-28 00:25 | PCM.PN.BLA ---
Progress Note 140s moderate variabtility intermittent mild variables- given amnioinfusion toco adequate contractions pit per protocol, overall reassuring, 9 cm
[2018-03-28] MEDS: fentaNYL-bupivacaine (epidural) 100 ML BAG EPIDURAL (01:00)
[2018-03-28] MEDS: Calcium Carbonate 500 MG Tablet PO (02:35)
[2018-03-28] MEDS: Oxytocin 30 units/NS 500 ml 30 UNITS/500 ML IV.SOLN 334 UNITS IV (03:31)
[2018-03-28] MEDS: Oxytocin 30 units/NS 500 ml 30 UNITS/500 ML IV.SOLN 167 UNITS IV (04:01)
--- NOTE | 2018-03-28 04:03 | OP.PCM_ITS ---
- Problem List (1) PROM (premature rupture of membranes) Status: Acute (2) Prolonged rupture of membranes Status: Acute (3) Abnormal glucose Status: Acute Comment: 3 hr GTT normal (4) Unspecified contraceptive management Status: Acute Comment: Mirena IUD 6wk pp-needs insurance auth after 02/05/18 (5) Segmental and somatic dysfunction of pelvic region Status: Acute (6) Two vessel umbilical cord, antepartum, single gestation Status: Acute Comment: following with mfm. growth us q 4 weeks, weekly nsts after 32. (7) Segmental and somatic dysfunction of sacral region Status: Acute (8) Status: Acute Qualifiers: Comment: MFM US ordered. echocardiogram-2 vessel cord, weekly NST at 32 weeks, growth US every 4 weeks. NIPT done, low risk, afp- negative. carrier screening declined. Adequate growth scan 02/07/18 repeat in 4 weeks. Adequate growth scan on 03/11 (9) Glomerulonephritis Status: Acute Comment: MPGN with complete resolution- s/p mfm consult, recommend baby ASA, growth US in third trimester (10) Supervision of normal Status: Acute Qualifiers: Comment: PRR KRISTINE 03/23/18 girl Paco (11) Segmental and somatic dysfunction of thoracic region Status: Acute (12) Segmental and somatic dysfunction of cervical region Status: Acute (13) Segmental and somatic dysfunction of lumbar region Status: Acute Vaginal Delivery Maternal Presentation: Active Labor 27-year-old at 40 and 4 presented with rupture of membranes of unknown duration. Patient initially had tachycardia but no fever or maternal tachycardia or leukocytosis. Due to prolonged rupture of membranes and tachycardia patient was started on ampicillin and gentamicin. No fevers were noted. Method of Induction: Pitocin Medical Reason for Induction: Premature Rupture of Membranes Amniotic Membrane Rupture Type: Spontaneous at home Amniotic Fluid Description: Clear Final KRISTINE: 03/23/18 Gestational age: 40 Weeks and 5 Days Date of Procedure: 03/28/18 Pre-Operative Diagnosis: Induction of labor premature rupture of membranes and prolonged rupture Post-Operative Diagnosis: Same plus recurrent heart rate decelerations Surgery/ Procedure Performed: Vacuum Assisted Vaginal Delivery Type of Anesthesia: Epidural Description of Procedure: Patient proceeded to complete dilation and developed recurrent severe variables with tachycardia and therefore the decision was made for an operative vaginal delivery. The station was a +2 and the patient had a strong maternal pushing effort and therefore the vacuum was applied on the head after it was noted to be in the ROP position. Poles were made four times with 2 pop offs in less than 10 minutes of total application time. A right medial lateral episiotomy was cut to increase exposure and patient began pushing and delivered the head in the ROP presentation. The head was delivered atraumatically and a double nuchal cord was noted and the infant delivered through it. The anterior and posterior shoulders delivered without complication followed by the rest of the and the was placed on the maternal abdomen after untangling the from several body cords loops. Delayed cord clamping was employed for approximately 60 seconds. Cord was clamped and cut and gentle traction was applied to the cord and the placenta delivered spontaneously immediately following it was noted to be intact with 2-vessel cord. The perineum and vagina were inspected and noted to have no extension of the right medial lateral e pisiotomy was at the level of a second-degree perineal laceration which was repaired in the usual fashion with 2-0 Vicryl.. EBL was 700 cc due to increased blood loss from the laceration. Patient and infant tolerated delivery well. Presentation: ROP Placental Delivery Description: Spontaneous Placenta Disposition: [facility] Cord Vessel Description: 2 Vessels Cord Entanglement: Around neck x 2, loose, - - multiple body cords Estimated Blood Loss: 700 A gender: Female Episiotomy Description: Right Mediolateral, Perineal Extension/lac, 2nd degree Medications given after delivery: IV Pitocin Complications: None
[2018-03-28 06:05] VITALS: BP 110/64; PULSE 104; RESP 18; TEMP 36.7; O2SAT 99
[2018-03-28] MEDS: 0.9% Saline Lock 10 ML Syringe IV ×2 (06:30→06:38)
[2018-03-28] MEDS: Acetaminophen 500 MG Tablet 1000 MG PO ×2 (06:31→14:35)
[2018-03-28] MEDS: Ondansetron 4 MG/2 ML Vial IV (06:38)
[2018-03-28 09:10] VITALS: BP 109/51; PULSE 93; RESP 14; TEMP 36.6
[2018-03-28] MEDS: Senna/Docusate Sodium 1 Tablet PO (10:24)
[2018-03-28] MEDS: Aspirin 81 MG TAB.CHEW PO (10:24)
[2018-03-28] MEDS: Prenatal Vits Tablet 1 TABLET PO (10:24)
[2018-03-28] MEDS: Famotidine 20 MG Tablet PO ×2 (10:24→22:06)
[2018-03-28] MEDS: Naproxen 250 MG Tablet PO (11:10)
[2018-03-28 13:10] VITALS: BP 120/54; PULSE 86; RESP 16; TEMP 36.6
[2018-03-28 16:35] VITALS: BP 101/34; PULSE 83; RESP 14; TEMP 36.6
[2018-03-28] MEDS: oxyCODONE 5 MG Tablet PO (18:28)
[2018-03-28 19:50] VITALS: BP 109/51; PULSE 85; RESP 16; TEMP 36.4
[2018-03-29 00:05] VITALS: BP 105/52; PULSE 82; RESP 18; TEMP 36.1
[2018-03-29] MEDS: oxyCODONE 5 MG Tablet PO ×3 (00:23→18:01)
[2018-03-29 04:30] VITALS: BP 104/45; PULSE 85; RESP 16; TEMP 36.3
[2018-03-29 08:00] VITALS: BP 114/43; PULSE 81; RESP 17; TEMP 36.6; O2SAT 99
[2018-03-29] MEDS: Acetaminophen 500 MG Tablet 1000 MG PO ×2 (08:26→22:29)
--- NOTE | 2018-03-29 08:49 | PCM.DCVAG ---
Discharge Diet: No Restrictions Discharge Activity: Return to Normal Activity, May not drive while taking narcotic pain medications., May Shower May resume sexual activity in: 4-6 weeks Call your doctor if your incision/area has: Continuous Slow Oozing, Sudden Increased Bleeding, Increased Pain/ Swelling, Increased Redness, Foul Smelling Discharge Additional Instructions: If you experience any of the following, contact your healthcare provider. Bleeding that soaks a pad every hour for 2 hours Fever 100.4 or higher Unrelieved incision or abdominal pain Swelling, redness, discharge or bleeding from your incision or episiotomy site Your incision begins to separate Problems urinating (including inability to urinate or burning while urinating). Visual changes Severe headache Flu-like symptoms Pain or redness in one of both of your breasts Pain, warmth, tenderness or swelling in your legs, especially the calf area Frequent nausea and vomiting Symptoms of depression or anxiety If you experience any of the following, call 911 or go to the nearest Emergency Room. Chest pain Problems breathing Seizure activity Partial or complete paralysis of a body part, slurred speech, weakness or drooping of the face, or a sudden inability to walk or hold your balance Allergies/Adverse Reactions: Allergies No Known Allergies Allergy (Verified 03/27/18 14:20) Medications to take at Discharge vitamin,calcium,wtcekcgc-wsdv-ttsoo acid tablet 1 tab PO QDAY 08/13/17 aspirin 81 mg chewable tablet 81 mg PO DAILY 10/09/17 cyclobenzaprine 10 mg tablet 10 mg PO TID PRN #30 tab 01/03/18 Ranitidine HCl [Acid Control] 150 mg PO BID 03/27/18 Please Follow Up With: Shweta Fisher MD - [phone] When: Call to make an appointment with your doctor in 6 weeks. If you had elevated Blood pressure or 4th degree laceration you will need to be seen in 2 weeks. Primary Care Physician: Kirt Radford MD [Primary Care Provider] - Test Results: Test results from this visit will be discussed in further detail at your follow-up appointment, if applicable.
--- NOTE | 2018-03-29 08:50 | DCINST_ITS ---
Discharge Diet: No Restrictions Discharge Activity: Return to Normal Activity, May not drive while taking narcotic pain medications., May Shower May resume sexual activity in: 4-6 weeks Call your doctor if your incision/area has: Continuous Slow Oozing, Sudden Increased Bleeding, Increased Pain/ Swelling, Increased Redness, Foul Smelling Discharge Additional Instructions: If you experience any of the following, contact your healthcare provider. * Bleeding that soaks a pad every hour for 2 hours * Fever 100.4 or higher * Unrelieved incision or abdominal pain * Swelling, redness, discharge or bleeding from your incision or episiotomy site * Your incision begins to separate * Problems urinating (including inability to urinate or burning while urinating). * Visual changes * Severe headache * Flu-like symptoms * Pain or redness in one of both of your breasts * Pain, warmth, tenderness or swelling in your legs, especially the calf area * Frequent nausea and vomiting * Symptoms of depression or anxiety If you experience any of the following, call 911 or go to the nearest Emergency Room. * Chest pain * Problems breathing * Seizure activity * Partial or complete paralysis of a body part, slurred speech, weakness or drooping of the face, or a sudden inability to walk or hold your balance Allergies/Adverse Reactions: Allergies No Known Allergies Allergy (Verified 03/27/18 14:20) Medications to take at Discharge vitamin,calcium,xiibpfsh-kvpv-qlnpc acid tablet 1 tab PO QDAY 08/13/17 aspirin 81 mg chewable tablet 81 mg PO DAILY 10/09/17 cyclobenzaprine 10 mg tablet 10 mg PO TID PRN #30 tab 01/03/18 Ranitidine HCl [Acid Control] 150 mg PO BID 03/27/18 Please Follow Up With: Shweta Fisher MD - [phone] When: Call to make an appointment with your doctor in 6 weeks. If you had elevated Blood pressure or 4th degree laceration you will need to be seen in 2 w [facility]. Primary Care Physician: Kirt Radford MD [Primary Care Provider] - Test Results: Test results from this visit will be discussed in further detail at your follow- up appointment, if applicable.
[2018-03-29] MEDS: Aspirin 81 MG TAB.CHEW PO (10:06)
[2018-03-29] MEDS: Famotidine 20 MG Tablet PO ×2 (10:06→22:30)
[2018-03-29] MEDS: Prenatal Vits Tablet 1 TABLET PO (10:06)
--- NOTE | 2018-03-29 11:11 | PCM.PN.OB ---
Patient Problems: Active and Suspected Problems (Last Reviewed 03/27/18 @ 14:20 by Tammy Irvin) PROM (premature rupture of membranes) (Acute) Prolonged rupture of membranes (Acute) Subjective: No CP, SOB. doing well - Physical Exam General: Alert, Oriented x3 Abdomen: Soft, Non Tender, - - FF below U Vital Signs Temp Pulse Resp BP Pulse Ox 97.8 F 81 17 114/43 L 99 03/29/18 08:00 03/29/18 08:00 03/29/18 08:00 03/29/18 08:00 03/29/18 08:00 Oxygen Delivery Method Room Air Weight: 220 lb 10.923 oz Body Mass Index (BMI) 40.4 Intake and Output for Last 24 Hours 03/27/18 03/28/18 03/29/18 23:59 23:59 23:59 Intake Total 2277 / 2277 973 / 973 Output Total 425 / 425 975 / 975 Balance 1852 / 1852 -2 / -2 Medical Necessity - Tobacco Use Smoking Status: Never smoker Assessment/Plan All Active Problems (Last Reviewed 03/27/18 @ 14:20 by Tammy Irvin) PROM (premature rupture of membranes) (Acute) Prolonged rupture of membranes (Acute) Abnormal glucose (Acute) Unspecified contraceptive management (Acute) Segmental and somatic dysfunction of pelvic region (Acute) Two vessel umbilical cord, antepartum, single gestation (Acute) Segmental and somatic dysfunction of sacral region (Acute) (Acute) Glomerulonephritis (Acute) Supervision of normal (Acute) Segmental and somatic dysfunction of thoracic region (Acute) Segmental and somatic dysfunction of cervical region (Acute) Segmental and somatic dysfunction of lumbar region (Acute) Back pain (Resolved) Fall (Resolved) VAVD PPD#1: Routine care. .
[2018-03-29 14:00] VITALS: BP 128/50; PULSE 79; RESP 16; TEMP 36.6; O2SAT 99
[2018-03-29] MEDS: Senna/Docusate Sodium 1 Tablet PO (18:03)
[2018-03-29 20:52] VITALS: BP 123/69; PULSE 95; RESP 18; TEMP 36.4
[2018-03-30] MEDS: oxyCODONE 5 MG Tablet PO ×3 (02:11→14:33)
[2018-03-30] MEDS: Dibucaine 30 GM Tube 1 APPLIC TOPICAL (02:12)
[2018-03-30 02:15] VITALS: BP 113/62; PULSE 91; RESP 18; TEMP 36.8
[2018-03-30 08:00] VITALS: BP 116/67; PULSE 78; RESP 18; TEMP 36.8
[2018-03-30] MEDS: Senna/Docusate Sodium 1 Tablet PO (08:53)
[2018-03-30] MEDS: Famotidine 20 MG Tablet PO (10:31)
[2018-03-30] MEDS: Prenatal Vits Tablet 1 TABLET PO (10:31)
[2018-03-30] MEDS: Aspirin 81 MG TAB.CHEW PO (10:32)
--- NOTE | 2018-03-30 12:27 | PCM.PN.OB ---
Patient Problems: Active and Suspected Problems (Last Reviewed 03/27/18 @ 14:20 by Tammy Irvin) PROM (premature rupture of membranes) (Acute) Prolonged rupture of membranes (Acute) Subjective: doingw ell no complaints - Physical Exam General: Alert, Oriented x3 Vital Signs Temp Pulse Resp BP Pulse Ox 98.3 F 78 18 116/67 99 03/30/18 08:00 03/30/18 08:00 03/30/18 08:00 03/30/18 08:00 03/29/18 14:00 Oxygen Delivery Method Room Air Weight: 220 lb 10.923 oz Body Mass Index (BMI) 40.4 Intake and Output for Last 24 Hours 03/28/18 03/29/18 03/30/18 23:59 23:59 23:59 Intake Total 973 / 973 Output Total 975 / 975 Balance -2 / -2 Medical Necessity - Tobacco Use Smoking Status: Never smoker Assessment/Plan All Active Problems (Last Reviewed 03/27/18 @ 14:20 by Tammy Irvin) PROM (premature rupture of membranes) (Acute) Prolonged rupture of membranes (Acute) Abnormal glucose (Acute) Unspecified contraceptive management (Acute) Segmental and somatic dysfunction of pelvic region (Acute) Two vessel umbilical cord, antepartum, single gestation (Acute) Segmental and somatic dysfunction of sacral region (Acute) (Acute) Glomerulonephritis (Acute) Supervision of normal (Acute) Segmental and somatic dysfunction of thoracic region (Acute) Segmental and somatic dysfunction of cervical region (Acute) Segmental and somatic dysfunction of lumbar region (Acute) Back pain (Resolved) Fall (Resolved) s/p PPD # 2 1. routine post delivery care 2. breast feeding- support given 3. rh positive 4. rubella immune
[2018-03-30 14:30] VITALS: BP 123/74; PULSE 82; RESP 16; TEMP 36.4; O2SAT 98
== END 2018-03-30 14:30 | disposition home or self-care (01) | DRG 807 ==
PROVIDERS: Admitting Provider Obstetrics & Gynecology; Family Provider Family Medicine; PCP Family Medicine; Referring Provider Obstetrics & Gynecology; Visit Provider Obstetrics & Gynecology
DX: O42.92 Full-term premature rupture of membranes, unspecified as to length of time between rupture and onset of labor (principal); Z37.0 Single live birth; Z3A.40 40 weeks gestation of pregnancy; O69.81X0 Labor and delivery complicated by cord around neck, without compression, not applicable or unspecified; M99.05 Segmental and somatic dysfunction of pelvic region; M99.04 Segmental and somatic dysfunction of sacral region; O75.89 Other specified complications of labor and delivery; O76 Abnormality in fetal heart rate and rhythm complicating labor and delivery
CPT/HCPCS: 59025; 59050; 85027; 86850; 86900; 99218; J7030; J7120; A4216; G0378; J0290; J2405

== ENCOUNTER → 2018-10-14 06:42 | Outpatient (CLI) | payer OTHER, SELFPAY ==
[2018-10-10 07:35] VITALS: BMI 38.4
[2018-10-14 07:42] LABS: Color, Urine Yellow (Yellow); Glucose, Dipstick Normal (Normal); Ketone-Dipstick 5 mg/dl (Negative); Leukocyte Esterase-Dipstick Negative /ul (Negative); Nitrite-Dipstick Negative (Negative); Occult Blood-Urine 10 /ul (Negative); Protein-Dipstick 30 mg/dl (Negative); Specific Gravity, Urine 1.025 (1.002-1.030); Urine Bilirubin Dipstick Negative (Negative); Urine Clarity Sl. Cloudy (Clear); Urine Urobilinogen Normal (Normal)
[2018-10-14 07:53] LABS: Albumin, Serum 3.2 g/dL (3.2-5.0); BUN 9 mg/dL (7-18); BUN/Creat Ratio 10.7 RATIO (10-20); Calcium,Total 8.5 mg/dL (8.5-10.1); Chloride 107 mmol/L (98-107); Creatinine, Serum 0.84 mg/dL (0.55-1.02); EST Glomerular Filtration Rate 86 mL/min (>60); Est Glom Filt Rate - Afr Amer 104 mL/min (>60); Glucose 97 mg/dL (74-106); Phosphorus 3.4 mg/dL (2.5-4.9); Sodium Level 140 mmol/L (136-145)
== END ==
PROVIDERS: Family Provider Family Medicine; PCP Family Medicine; Referring Provider Internal Medicine Nephrology; Visit Provider Internal Medicine Nephrology
DX: N05.5 Unspecified nephritic syndrome with diffuse mesangiocapillary glomerulonephritis (principal); N18.1 Chronic kidney disease, stage 1
CPT/HCPCS: 36415; 80069; 81002

== ENCOUNTER 2019-03-06 08:30 | Outpatient (RCR) | payer OTHER, SELFPAY ==
[2018-12-18 09:37] VITALS: BMI 38.4
--- NOTE | 2019-01-28 09:45 | HP.PTEVAL_ITS ---
Patient's Visit Information KYE ARREAGA is a 28 year old F referred to Physical Therapy by Yamini Abraham DC with a diagnosis of Low Back Pain. Date of Evaluation: 01/28/19 Physical Therapist: Juanita Burgos DPT - Visit Plan Frequency: 2-3x /Week Duration: 3 Weeks Plan: Focus on LE and core strength/stabilization without increase in symptoms. - Subjective Findings: Since right before she got she was having problems with sciatic nerve. Its been on/off. She is now having problems with her piriformis. After a 12 hour shift at the Hospital she is in tears it hurts so bad. Pain is located in the right buttock and down the knee. She did have Numbness last week for the first time. [place] the knee was going to buckle. Depends on the knee- feels she is not improving. Saw Dr. Abraham and it helps for a little bit then it comes back. Describes the pain as dull and achy but also describes it as shapr. It she applies pressure or moves her leg it helps. Eases: pushing on her hip and buttock, ice, PRN Flexeril, sit down and rest. Agg: being on her feet. 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 Worst in last 48 hours: 5/10 Best: 0/10. Does have low back pain. Has a 10 month- tries to rotate sides- carries her due to her age- vaginal - 7lbs 2 oz- no complications during delivery. No injuries- no car accidents or specific trauma. X-rays taken but no MRI at this time. Has not done PT for her back before. Sleep: hard to get comfortable- side sleeper. PMHx: rare kidney disease- stable, osteoporosis. Meds: Flexeril PRN, Amotriptolene, Sylvexa. Prior to baby was working out- but wants to get back into the gym. - Objective Posture: poor in sitting and standing- FH, RS- can correct but does not maintain. Gait: no deviation noted- good arm swing and trunk rotation. SLS: 30 sec no LOB. HR/TR: WNL no UE A required. ROM: Lumbar: flexion: hands to feet, Extn: hypermobility coming from single segment L4/5, SB and roation: WNL, Hip/knee/Ankle: WNL. Sensation/Reflexes: WNL. Strength: core: poor. Hip: flexion: 3+/5, Extn: 4/5, Abd: 4/5, IR: 4/5, ER: 3+/5, Knee: 5/5, Ankle: 5/5. Flex: HS: moderate, Gastroc: moderate, Piriformis: severe. Special Test: LLD: negative, Pelvic Rotation: WNL, Prone Lying: no change in s/s, Flexion: no change in s/s - Goals Goal 1:: Patient will be I with HEP and progression Goal Time Frame: 4-6 Weeks Goal 2:: Patient will maintain proper posture t/o tx session to demo increased core s/s Goal Time Frame: 4-6 Weeks Goal 3:: Patient will report no s/s for 1 week Goal Time Frame: 4-6 Weeks - Rehabilitation Potential Physical Therapy Diagnosis: Patient presents with hypomobility- she has decreased strength, flex and muscular endurance leading to poor posture and increased pain with work/ADL's. Rehabilitation Potential: Good - Anticipated Interventions Patient/Client Instruction: Educate patient on: Benefits of Fitness Program Therapeutic Exercise to Include: Strength training, Endurance training, Balance training, Agility training, Body mechanics, Postural training, Flexibilty training, Passive ROM, Active ROM, Dynamic Lumbar Stabilization For the Purpose of:: To improve muscle performance and motor function TENS: Yes Cryotherapy (ice pack, ice massage): Yes Thermo therapy (hot pack): Yes For the Purpose of:: To decrease pain Thank you for the opportunity to evaluate your patient. For Medicare and Medicare HMO plans, please review the plan of care and approve it. It will need to be FAXED BACK to us at [phone] for Medicare purposes. For Medicare only, by signing this I certify the plan of care. Please let me know if there are questions or concerns regarding this plan of care. Physician Signat ure: Date:
--- NOTE | 2019-03-06 09:15 | HP.PTDCSUM ---
HP - PT D/C Summary It has been my pleasure to treat KYE ARREAGA under orders from Yamini Abraham DC, for the diagnosis of Low Back Pain for a total of 10 visit(s). Discharge Date: Please see the following information for a summary of their discharge status. - Subjective Subjective: Patient reports that she has not really been doing things due to being sick. Has only worked 2 shifts and had minimal pain. No pain today. - Pain LB Pain Intensity (Out of 10): 4 RLE Pain Intensity (Out of 10): 4 - Overall Improvement % Improvement: 80 - Objective Objective/Function: Posture: good throughout sitting in hardback chair. Gait: no deviation noted- good arm swing and trunk rotation. SLS: 30 sec no LOB. HR/TR: WNL no UE A required. ROM: Lumbar: flexion: hands to feet, Extn: hypermobility coming from single segment L4/5, SB and roation: WNL, Hip/knee/Ankle: WNL. Sensation/Reflexes: WNL. Strength: core: fair plus. Hip: flexion: 4+/5, Extn: 4+/5, Abd: 4+/5, IR: 4/5, ER: 4/5, Knee: 5/5, Ankle: 5/5. Flex: HS: moderate, Gastroc: moderate, Piriformis: severe. Special Test: LLD: negative, Pelvic Rotation: WNL, Prone Lying: no change in s/s, Flexion: no change in s/s - Goals Goal 1:: Patient will be I with HEP and progression Goal Progress: Goal Met Goal 2:: Patient will maintain proper posture t/o tx session to demo increased core s/s Goal Progress: Goal Met Goal 3:: Patient will report no s/s for 1 week Goal Progress: Progressing - Plan Plan: Discharge to I HEP - D/C Information If there are questions or concerns regarding this patient's physical therapy, please feel free to call me at [phone]. Thank you for the referral of this patient. Sincerely, Juanita Burgos DPT
== END 2019-03-06 19:00 | disposition home or self-care (01) ==
LOC: PT 08:30
PROVIDERS: Family Provider Family Medicine; PCP Family Medicine; Visit Provider Chiropractor
DX: M99.03 Segmental and somatic dysfunction of lumbar region (principal)
CPT/HCPCS: 97110; 97161; 97164

== ENCOUNTER → 2019-10-02 09:24 | Outpatient (CLI) | payer OTHER, SELFPAY ==
[2019-06-14 11:40] VITALS: BMI 38.4
[2019-10-02 12:26] LABS: Hematocrit 43.9 % (37-47); Hemoglobin 14.2 g/dL (12.0-15.0); Mean Corp Hgb Conc 32.3 g/dL (32-36); Mean Corpuscular Hgb 26.4 pg (27.0-32.0); Mean Corpuscular Volume 81.8 fL (81-99); Mean Platelet Vol. 9.8 fl (6.2-12.0); Platelet Count 312 K/mm3 (150-450); RBC Distribution Width CV 13.8 % (11.6-14.6); RBC Distribution Width SD 40.1 fl (35.1-43.9); Red Blood Count 5.37 M/mm3 (4.2-5.4); White Blood Count 8.8 K/mm3 (4.4-11.0)
[2019-10-02 12:36] LABS: Albumin, Serum 3.6 g/dL (3.2-5.0); BUN 11 mg/dL (7-18); BUN/Creat Ratio 12.9 RATIO (10-20); Calcium,Total 8.7 mg/dL (8.5-10.1); Chloride 107 mmol/L (98-107); Creatinine, Serum 0.85 mg/dL (0.55-1.02); EST Glomerular Filtration Rate 84 mL/min (>60); Est Glom Filt Rate - Afr Amer 101 mL/min (>60); Glucose 76 mg/dL (74-106); Sodium Level 138 mmol/L (136-145)
[2019-10-02 12:43] LABS: Microalbumin:Creatinine Ratio 133.5 mg/g CRE (<30 mg/g CRE); Protein, Urine (Random) 46.9 mg/dL (<11.9); Protein:Creat Ratio 209 mg/g CRE (0-200)
[2019-10-02 12:50] LABS: Color, Urine Yellow (Yellow); Glucose, Dipstick Normal (Normal); Ketone-Dipstick Negative (Negative); Leukocyte Esterase-Dipstick 25 /ul (Negative); Nitrite-Dipstick Negative (Negative); Occult Blood-Urine 250 /ul (Negative); Protein-Dipstick 30 mg/dl (Negative); Urine Bilirubin Dipstick Negative (Negative); Urine Clarity Clear (Clear); Urine Urobilinogen Normal (Normal)
[2019-10-02 12:56] LABS: Vitamin D,25 Hydroxy 36.3 ng/mL
== END ==
PROVIDERS: PCP Family Medicine; Referring Provider Internal Medicine Nephrology; Visit Provider Internal Medicine Nephrology
DX: I12.9 Hypertensive chronic kidney disease with stage 1 through stage 4 chronic kidney disease, or unspecified chronic kidney disease (principal); N18.1 Chronic kidney disease, stage 1
CPT/HCPCS: 36415; 80069; 81002; 82043; 82306; 82570; 83970; 84156; 85027

== ENCOUNTER 2020-01-27 13:45 | Outpatient (RCR) | payer OTHER, SELFPAY ==
[2018-12-18 09:37] VITALS: BMI 38.4
--- NOTE | 2019-04-11 10:15 | MASS.EVAL_ITS ---
Massage Therapy Evaluation: Initial Evaluation Date: 04/09/2019 SUBJECTIVE: Pia is a 28 year old female who was referred to the [facility] facility for a massotherapy evaluation by Dr. Radford with the diagnosis of sciatic pain. She presents today with the symptoms of pain, stiffness and tension in the neck, mid back, low back and hips. She states that she was treated with physical therapy for the same diagnosis and it greatly improved her symptoms. OBJECTIVE: Upon observation Pia has some posture issues with her head and shoulders forward from the neutral position in sitting and standing. After examination and palpation, I found Pia to have high muscle tension with tenderness and myofascial restrictions in her sub occipitals, levator scapulae, trapezius, rhomboids, scalenes, and thoracic paraspinals. Her QL?s, lumbar paraspinals, piriformis, glute medius and minimus all were very tight with fascial restrictions, tender points and trigger points. The first treatment consisted of a one hour massage to her full body with myofascial release, muscle stripping, trigger point compression techniques, and cervical manual traction. ASSESSMENT: I feel that Pia is a good candidate for massotherapy at this time. She had a favorable response to the first treatment with reduction in her muscle aches, pain and tension. She also had improvement in her cervical flexibility and low back flexibility. PLAN: The plan of care was reviewed with the patient. The patient is to be seen on an as needed basis for a total of ten sessions with the recommendation of once every month for a one hour treatment.
[2019-11-21 09:22] VITALS: BMI 38.4
--- NOTE | 2020-01-28 12:30 | MASS.DISCH ---
Massage Therapy Discharge Summary: Discharge Date: 01/28/2020 Pia was seen for a massotherapy evaluation on 04/09/2019 with the diagnosis of back and hip pain. She was treated with nine sessions of massage therapy consisting of deep pressure soft tissue techniques, myofascial release and trigger point compression to her cervical, thoracic, lower back, lower extremities and hips. Pia responded well to the therapy by reporting decreased tension and pain throughout her neck, shoulders, lower back and hips. Her goals for therapy were met throughout the treatment sessions. At this time this patient is being discharged from our care at [facility] facility.
== END 2020-01-27 19:00 | disposition home or self-care (01) ==
LOC: MASS 13:45
PROVIDERS: PCP Family Medicine; Referring Provider Family Medicine; Visit Provider Family Medicine
DX: M54.30 Sciatica, unspecified side (principal)
CPT/HCPCS: 97124

== ENCOUNTER → 2020-05-13 16:21 | Outpatient (CLI) | payer OTHER, SELFPAY ==
[2020-05-13 14:02] VITALS: BMI 40.0
[2020-05-13 18:46] LABS: Amphetamine Urine VISTA NEGATIVE (<1000 ng/mL); Barbiturate Urine VISTA NEGATIVE (< 200 ng/mL); Benzodiazepine Urine VISTA NEGATIVE (< 200 ng/mL); Cocaine Urine VISTA NEGATIVE (< 300 ng/mL); Ecstacy Urine VISTA NEGATIVE (< 500 ng/mL); Methadone Urine VISTA NEGATIVE (< 300 ng/mL); PCP Urine VISTA NEGATIVE (< 25 ng/mL); Protein, Urine (Random) 32.4 mg/dL (<11.9); Protein:Creat Ratio 131 mg/g CRE (0-200); THC Urine VISTA NEGATIVE (< 50 ng/mL); Vista UDS pH Range 5
[2020-05-17 07:06] LABS: Chlamydia By Nucleic Acid AMP Negative (Negative)
[2020-05-17 16:33] LABS: Gonococcus By Nucleic Acid AMP Negative (Negative)
[2020-05-18 09:45] LABS: HPV Reflexed? NOT INDICATED
== END ==
PROVIDERS: PCP Family Medicine; Visit Provider Obstetrics & Gynecology
DX: O99.210 Obesity complicating pregnancy, unspecified trimester (principal); N28.9 Disorder of kidney and ureter, unspecified; Z3A.00 Weeks of gestation of pregnancy not specified
CPT/HCPCS: 80307; 82570; 84156; 87086; 87088; 87491; 87591; 88175; G0145

== ENCOUNTER → 2020-05-31 13:33 | Outpatient (CLI) | payer OTHER, SELFPAY ==
[2020-05-13 14:02] VITALS: BMI 40.0
[2020-05-31 14:02] LABS: Absolute Lymphocyte Count 2.06 X10^3/uL (0.83-4.51); Absolute Neutrophil Count 9.7 X10^3/uL (2.0-7.7); Basophil# 0.03 X10^3/uL; Basophil% 0.2 % (0-1); Eosinophil# 0.14 X10^3/uL; Eosinophils% 1.1 % (0-5); Hematocrit 40.1 % (37-47); Hemoglobin 13.4 g/dL (12.0-15.0); Lymphocyte # 2.06 X10^3/ul (0.83-4.51); Lymphocyte % 16.9 % (19-41); Mean Corp Hgb Conc 33.4 g/dL (32-36); Mean Corpuscular Hgb 27.5 pg (27.0-32.0); Mean Corpuscular Volume 82.3 fL (81-99); Mean Platelet Vol. 9.7 fl (6.2-12.0); Monocyte# 0.26 X10^3/uL; Monocyte% 2.1 % (0-10); NRBC Flagged by Analyzer 0 % (0-5); Neutrophil # 9.65 X10^3/uL (2.7-7.7); Neutrophil % 79.3 % (47-70); Platelet Count 208 K/mm3 (150-450); RBC Distribution Width SD 38.9 fl (35.1-43.9); Red Blood Count 4.87 M/mm3 (4.2-5.4); White Blood Count 12.2 K/mm3 (4.4-11.0)
[2020-05-31 14:32] LABS: ALB/GLOB Ratio 0.7 RATIO (0.9-2.4); AST(SGOT) 13 U/L (15-37); Alanine Aminotransfer ALT/SGPT 18 U/L (13-56); Alkaline Phosphatase 82 U/L (45-117); Anion Gap 9 (5-15); BUN 9 mg/dL (7-18); BUN/Creat Ratio 12.7 RATIO (10-20); Calcium,Total 9.1 mg/dL (8.5-10.1); Chloride 104 mmol/L (98-107); Creatinine, Serum 0.71 mg/dL (0.55-1.02); EST Glomerular Filtration Rate 103 mL/min (>60); Est Glom Filt Rate - Afr Amer 125 mL/min (>60); Globulin 4.3 g/dL (2.2-4.2); Glucose 170 mg/dL (74-106); Glucose Challenge Gest 1H 50g 170 mg/dL (70-140); Potassium 3.3 mmol/L (3.5-5.1); Protein, Total 7.3 g/dL (6.4-8.2); Sodium Level 136 mmol/L (136-145)
[2020-05-31 14:58] LABS: NATERA MAILED SPECIMEN
[2020-05-31 15:11] LABS: HIV - WCH Non-Reactive (Nonreactive); Hepatitis B Surface Antigen Non-Reactive (Nonreactive); Hepatitis C Antibody Non-Reactive (Nonreactive); Rubella IgG Reactive (Nonreactive); Syphilis Antibodies Non-reactive
== END ==
PROVIDERS: PCP Family Medicine; Visit Provider Obstetrics & Gynecology
DX: O26.831 Pregnancy related renal disease, first trimester (principal); N28.9 Disorder of kidney and ureter, unspecified; O99.210 Obesity complicating pregnancy, unspecified trimester; E66.9 Obesity, unspecified; Z31.430 Encounter of female for testing for genetic disease carrier status for procreative management; Z3A.00 Weeks of gestation of pregnancy not specified
CPT/HCPCS: 36415; 80053; 82950; 85025; 86703; 86762; 86780; 86803; 86850; 86900; 86901; 87340

== ENCOUNTER → 2020-06-03 06:46 | Outpatient (CLI) | payer OTHER, SELFPAY ==
[2020-05-31 14:16] VITALS: BMI 40.4
[2020-06-03 07:30] LABS: Glucose GTT-Gestation. Fasting 79 mg/dL (<105)
[2020-06-03 08:47] LABS: Glucose GTT-Gestational 1 Hr 176 mg/dL (<190)
[2020-06-03 09:34] LABS: Glucose GTT-Gestational 2 Hr 137 mg/dL (<165)
[2020-06-03 10:45] LABS: Glucose GTT-Gestational 3 Hr 61 L (<145)
== END ==
PROVIDERS: PCP Family Medicine; Visit Provider Obstetrics & Gynecology
DX: O99.810 Abnormal glucose complicating pregnancy (principal); Z3A.00 Weeks of gestation of pregnancy not specified
CPT/HCPCS: 36415; 82951; 82952

== ENCOUNTER → 2020-07-29 08:44 | Outpatient (CLI) | payer OTHER, SELFPAY ==
[2020-07-29 08:22] VITALS: BMI 40.0
== END ==
PROVIDERS: PCP Family Medicine; Referring Provider Obstetrics & Gynecology; Visit Provider Obstetrics & Gynecology
DX: Z36.9 Encounter for antenatal screening, unspecified (principal)
CPT/HCPCS: 36415

== ENCOUNTER → 2020-09-16 06:48 | Outpatient (CLI) | payer OTHER, SELFPAY ==
[2020-08-26 08:45] VITALS: BMI 40.0
[2020-09-16 07:47] LABS: Glucose GTT-Gestation. Fasting 78 mg/dL (<105)
[2020-09-16 08:38] LABS: Glucose GTT-Gestational 1 Hr 154 mg/dL (<190)
[2020-09-16 10:06] LABS: Glucose GTT-Gestational 2 Hr 134 mg/dL (<165)
[2020-09-16 10:53] LABS: Glucose GTT-Gestational 3 Hr 87 L (<145)
== END ==
PROVIDERS: PCP Family Medicine; Referring Provider Obstetrics & Gynecology; Visit Provider Obstetrics & Gynecology
DX: Z13.1 Encounter for screening for diabetes mellitus (principal)
CPT/HCPCS: 36415; 82951; 82952

== ENCOUNTER → 2020-10-12 10:10 | Outpatient (CLI) | payer OTHER, SELFPAY ==
[2020-10-12 11:02] LABS: Protein, Urine (Random) 29.1 mg/dL (<11.9); Protein:Creat Ratio 156 mg/g CRE (0-200)
[2020-10-12 11:07] LABS: Albumin, Serum 2.4 g/dL (3.2-5.0); BUN 5 mg/dL (7-18); BUN/Creat Ratio 8.8 RATIO (10-20); Calcium,Total 8.2 mg/dL (8.5-10.1); Chloride 108 mmol/L (98-107); Creatinine, Serum 0.57 mg/dL (0.55-1.02); EST Glomerular Filtration Rate 133 mL/min (>60); Est Glom Filt Rate - Afr Amer 161 mL/min (>60); Glucose 94 mg/dL (74-106); Sodium Level 137 mmol/L (136-145)
== END ==
PROVIDERS: PCP Family Medicine; Referring Provider Internal Medicine Nephrology; Visit Provider Internal Medicine Nephrology
DX: N18.1 Chronic kidney disease, stage 1 (principal)
CPT/HCPCS: 36415; 80069; 82570; 83970; 84156

== ENCOUNTER → 2020-10-28 09:27 | Outpatient (CLI) | payer OTHER, SELFPAY ==
[2020-10-28 09:41] LABS: Absolute Lymphocyte Count 1.78 X10^3/uL (0.83-4.51); Absolute Neutrophil Count 7.8 X10^3/uL (2.0-7.7); Basophil# 0.02 X10^3/uL; Basophil% 0.2 % (0-1); Eosinophil# 0.16 X10^3/uL; Eosinophils% 1.6 % (0-5); Hematocrit 32.8 % (37-47); Hemoglobin 10.5 g/dL (12.0-15.0); Lymphocyte # 1.78 X10^3/ul (0.83-4.51); Lymphocyte % 17.4 % (19-41); Mean Corpuscular Hgb 26.9 pg (27.0-32.0); Mean Corpuscular Volume 83.9 fL (81-99); Mean Platelet Vol. 9.7 fl (6.2-12.0); Monocyte# 0.45 X10^3/uL; Monocyte% 4.4 % (0-10); NRBC Flagged by Analyzer 0 % (0-5); Neutrophil # 7.76 X10^3/uL (2.7-7.7); Platelet Count 203 K/mm3 (150-450); RBC Distribution Width CV 13.4 % (11.6-14.6); Red Blood Count 3.91 M/mm3 (4.2-5.4); White Blood Count 10.2 K/mm3 (4.4-11.0)
== END ==
PROVIDERS: PCP Family Medicine; Referring Provider Nurse Practitioner Women's Health; Visit Provider Nurse Practitioner Women's Health
DX: Z34.80 Encounter for supervision of other normal pregnancy, unspecified trimester (principal)
CPT/HCPCS: 36415; 85025

== ENCOUNTER → 2020-11-16 09:54 | Outpatient (CLI) | payer OTHER, SELFPAY ==
[2020-11-16 10:12] LABS: Absolute Lymphocyte Count 1.55 X10^3/uL (0.83-4.51); Absolute Neutrophil Count 7.7 X10^3/uL (2.0-7.7); Basophil# 0.02 X10^3/uL; Basophil% 0.2 % (0-1); Eosinophil# 0.15 X10^3/uL; Eosinophils% 1.5 % (0-5); Hematocrit 34.5 % (37-47); Lymphocyte # 1.55 X10^3/ul (0.83-4.51); Lymphocyte % 15.9 % (19-41); Mean Corp Hgb Conc 31.9 g/dL (32-36); Mean Corpuscular Hgb 27.7 pg (27.0-32.0); Mean Corpuscular Volume 86.9 fL (81-99); Mean Platelet Vol. 10.1 fl (6.2-12.0); Monocyte# 0.33 X10^3/uL; Monocyte% 3.4 % (0-10); NRBC Flagged by Analyzer 0 % (0-5); Neutrophil # 7.65 X10^3/uL (2.7-7.7); Neutrophil % 78.5 % (47-70); Platelet Count 183 K/mm3 (150-450); RBC Distribution Width CV 15.9 % (11.6-14.6); RBC Distribution Width SD 49.1 fl (35.1-43.9); Red Blood Count 3.97 M/mm3 (4.2-5.4); White Blood Count 9.8 K/mm3 (4.4-11.0)
[2020-11-16 10:33] LABS: ALB/GLOB Ratio 0.5 RATIO (0.9-2.4); AST(SGOT) 20 U/L (15-37); Alanine Aminotransfer ALT/SGPT 21 U/L (13-56); Albumin, Serum 2.3 g/dL (3.2-5.0); Alkaline Phosphatase 131 U/L (45-117); Anion Gap 9 (5-15); BUN 6 mg/dL (7-18); BUN/Creat Ratio 8.6 RATIO (10-20); Calcium,Total 8.4 mg/dL (8.5-10.1); Chloride 106 mmol/L (98-107); EST Glomerular Filtration Rate 105 mL/min (>60); Est Glom Filt Rate - Afr Amer 127 mL/min (>60); Globulin 4.2 g/dL (2.2-4.2); Glucose 129 mg/dL (74-106); Potassium 3.4 mmol/L (3.5-5.1); Protein, Total 6.5 g/dL (6.4-8.2); Sodium Level 140 mmol/L (136-145)
[2020-11-16 13:14] LABS: Protein, Urine (Random) 43.5 mg/dL (<11.9); Protein:Creat Ratio 170 mg/g CRE (0-200)
== END ==
PROVIDERS: PCP Family Medicine; Referring Provider Nurse Practitioner Women's Health; Visit Provider Nurse Practitioner Women's Health
DX: N28.9 Disorder of kidney and ureter, unspecified (principal)
CPT/HCPCS: 36415; 80053; 82570; 84156; 85025

== ENCOUNTER → 2020-11-25 | Outpatient (CLI) | payer OTHER, SELFPAY ==
[2020-12-23 09:48] VITALS: BMI 40.6
== END | disposition home or self-care (01) ==
LOC: LABSPEC 11:51
PROVIDERS: PCP Family Medicine; Referring Provider Obstetrics & Gynecology; Visit Provider Obstetrics & Gynecology
DX: Z34.93 Encounter for supervision of normal pregnancy, unspecified, third trimester (principal); Z3A.34 34 weeks gestation of pregnancy
CPT/HCPCS: 87081

== ENCOUNTER 2020-12-21 10:45 | Outpatient (RCR) | payer OTHER, SELFPAY ==
[2019-11-21 09:22] VITALS: BMI 38.4
--- NOTE | 2020-02-11 14:51 | MASS.EVAL_ITS ---
Massage Therapy Evaluation: Initial Evaluation Date: 02/10/2020 SUBJECTIVE: Pia is a 29 year old female who was referred to the [facility] facility for a massotherapy evaluation by Dr. Radford with the diagnosis of sciatic pain. She presents today with the symptoms of pain, stiffness and tension in the neck, mid back, low back and hips. Pia reports having a past medical history of neck, shoulders, back pain and varicose veins. OBJECTIVE: Upon observation Pia has some posture issues with her head and shoulders forward from the neutral position in sitting and standing. After examination and palpation, I found Pia to have high muscle tension with tenderness and myofascial restrictions in her sub occipitals, levator scapulae, trapezius, rhomboids, scalenes, and thoracic paraspinals. Her QL?s, lumbar paraspinals, piriformis, glute medius and minimus all were very tight with fascial restrictions, tender points and trigger points. The first treatment consisted of a one hour massage to her upper body with myofascial release, muscle stripping, trigger point compression techniques, and cervical manual traction. ASSESSMENT: I feel that Pia is a good candidate for massotherapy at this time. She had a favorable response to the first treatment with reduction in her muscle aches, pain and tension. She also had improvement in her cervical flexibility. PLAN: The plan of care was reviewed with the patient. The patient is to be seen on an as needed basis for a total of ten sessions with the recommendation of once e very month for a one hour treatment.
--- NOTE | 2021-01-24 13:09 | DS.PCM_ITS ---
Massage Therapy Discharge Summary: discharge date 01/24/21 Pia was seen on February 10, 2020, with the diagnosis of back pain. She was treated with ten sessions of massage. The patient reported that massages helped. At this time I am discharging her from our care at [facility].
== END 2020-12-21 19:00 | disposition home or self-care (01) ==
LOC: MASS 10:45
PROVIDERS: PCP Family Medicine; Referring Provider Family Medicine; Visit Provider Family Medicine
DX: M54.30 Sciatica, unspecified side (principal)
CPT/HCPCS: 97124

== ENCOUNTER 2020-12-23 10:10 | Inpatient (IN) | payer OTHER, SELFPAY ==
[2020-12-23] VITALS (62 sets, daily range): BP systolic 80–153; BP diastolic 43–78; PULSE 51–214; TEMP 35.9–37.2; O2SAT 81–100; BMI 40.6
[2020-12-23 10:09] LABS: ROM Internal Control Test YES-OK TO RESULT pt. (Internal QC)
[2020-12-23 10:11] LABS: ROM Patient Test POSITIVE (Negative)
[2020-12-23] MEDS: Lactated Ringers 1,000 ML 50 ML IV (11:37)
[2020-12-23 11:59] LABS: Absolute Lymphocyte Count 1.79 X10^3/uL (0.83-4.51); Absolute Neutrophil Count 10.1 X10^3/uL (2.0-7.7); Basophil# 0.01 X10^3/uL; Basophil% 0.1 % (0-1); Eosinophil# 0.07 X10^3/uL; Eosinophils% 0.6 % (0-5); Hemoglobin 13.1 g/dL (12.0-15.0); Lymphocyte # 1.79 X10^3/ul (0.83-4.51); Lymphocyte % 14.3 % (19-41); Mean Corp Hgb Conc 33.6 g/dL (32-36); Mean Corpuscular Volume 83.3 fL (81-99); Mean Platelet Vol. 10.3 fl (6.2-12.0); Monocyte# 0.45 X10^3/uL; Monocyte% 3.6 % (0-10); NRBC Flagged by Analyzer 0 % (0-5); Neutrophil # 10.12 X10^3/uL (2.7-7.7); Platelet Count 203 K/mm3 (150-450); Red Blood Count 4.68 M/mm3 (4.2-5.4); White Blood Count 12.5 K/mm3 (4.4-11.0)
[2020-12-23] MEDS: Lactated Ringers 500 ML 999 ML IV ×3 (12:30→16:04)
[2020-12-23] MEDS: fentaNYL-bupivacaine (epidural) 100 ML BAG EPIDURAL ×2 (13:31→20:19)
[2020-12-23] MEDS: Ondansetron 4 MG/2 ML Vial IV ×2 (14:02→18:59)
[2020-12-23] MEDS: proCHLORPERazine 10 MG/2 ML Vial IV (14:41)
--- NOTE | 2020-12-23 15:08 | HP.PCM.OB_ITS ---
HPI - General General Date of Admission: 12/23/20 HPI Narrative KYE ARREAGA, is a 30 F who presents IAL with SROM clear fluid. no vb admits good fm. Maternal Data Information KRISTINE Calculator Estimated Delivery Date Method Current WG Current Estimate 12/21/20 Ultrasound #1 40w 2d Other Estimates 12/21/20 LMP (Certain) 40w 2d PFSH PFSH Medical History (Updated 12/23/20 @ 15:[address] Shweta Fisher MD) Anxiety H/O depression, currently Headaches, cluster Heart murmur Hx of appendectomy Kidney disease Osteoporosis Home Medications multivitamin no.47-iron fum 27 mg-folate no.1 1 mg-dha 300 mg capsule 1 cap PO DAILY 05/04/20 [History Last Taken 12/23/20] famotidine 20 mg tablet 20 mg PO BID #60 tab 08/26/20 [Rx Last Taken 12/23/20 08:00] cyclobenzaprine 5 mg tablet 5 mg PO TID PRN #20 tab 09/24/20 [Rx Last Taken 20:30] ferrous sulfate 325 mg (65 mg iron) tablet 325 mg PO DAILY 11/11/20 [History Last Taken 12/22/20 20:30] docusate sodium 100 mg capsule 100 mg PO DAILY 11/25/20 [History Last Taken 12/23/20 08:00] Allergy/AdvReac Type Severity Reaction Status Date / Time No Known Allergies Allergy Verified 12/23/20 09:17 Family History Other Arthritis Breast cancer COPD (chronic obstructive pulmonary disease) Colon cancer Heart disease Hypertension Melanoma Surgical History History of tonsillectomy Status post biopsy of kidney Social History household members: family housing: house number of children: 1 current occupational status: employed current occupation: Nurse Smoking Status: Never smoker alcohol intake: current alcohol intake frequency: holidays/special occasions only Alcohol type: wine and hard liquor details: social substance use type: does not use caffeine: Yes what type of physical activity do you participate in: walking and running duration: 30-45 minutes/day seatbelt use: always do you feel safe at home: Yes additional social history: Dimitry- Patient is a nurse on [employer] History 2 Elective abortions Hx Para 1 Spontaneous abortions Hx # Term Pregnancies Ectopic pregnancies Hx # Pregnancies Multiple births # of living children 1 Past Pregnancies Del. Date Name GA/Weeks Outcome Route Bth Weight Gen Labor [facility] 03/28/18 Jossy Barreto 40 live - full term vacuum 7lbs 2oz Female 11 hours epidural [facility] Dr. Shweta Quiros y Delivery Date: 03/28/18 2VC, PROM-recurrent heart rate deceleration;Right Mediolateral, Perineal Extension/lac, 2nd degree; multiple body cords Sarah Puckett Visit Details Expected Delivery Route/Plan IOL by 41 Labor Preferences- CB/BF classes: no labor support person: Dimitry labor intervention preferences: [] pain management options preferred: epidural cut cord/dad catch: cord : yes PP control planned: IUD discussed possible routes of delivery and associated risks: [] special requests: [] Plans covid vaccine: non immune, counseled regarding risk of covid in vs vaccination and declined vaccination flu vaccine: employer tdap vaccine: given rhogam: na LARC form signed: declined movement and labor precautions reviewed. Problem list reviewed and updated with the most current plan of care details and appropriate orders placed. Relevant counseling for the gestational age provided. Continue routine care and follow up unless otherwise noted in visit notes/problem list details OB Flowsheet Initial Weight: 218 lb Date -?-?-?-?-?-?-?-?-?-?-?-?- EGA Weight BP Urine Prot -?-?-?-?-?-?-?-?-?-?-?-?- Glucose FHR FuHt Pres Dilation -?-?-?-?-?-?-?-?-?-?-?-?- Effaced St Visit Note 05/13/20 -?-?-?-?-?-?-?-?-?-?-?-?- 8w 2d 219 lb (+16 oz) -?-?-?-?-?-?-?-?-?-?-?-?- 165 -?-?-?-?-?-?-?-?-?-?-?-?- SM- CRL cons wit h LMP 1.6 cm 05/31/20 -?-?-?-?-?-?-?-?-?-?-?-?- 10w 6d 221 lb (+3 lb) 104/70 Negative -?-?-?-?-?-?-?-?-?-?-?-?- Negative 150 -?-?-?-?-?-?-?-?-?-?-?-?- SM- no vb 06/28/20 -?-?-?-?-?-?-?-?-?-?-?-?- 14w 6d 216 lb 4 oz (-1 lb 12 oz) 128/76 Negative -?-?-?-?-?-?-?-?-?-?-?-?- Negative 150 -?-?-?-?-?--?-?-?-?-?-?-?- GP - no cramping or bleeding. Nausea improved. 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 07/29/20 -?-?-?-?-?-?-?-?-?-?-?-?- 19w 2d 219 lb (+16 oz) 110/76 -?-?-?-?-?-?-?-?-?-?-?-?- 145 -?-?-?-?-?-?-?-?-?-?-?-?- SM- no vb crampi ng fu anatomy views 08/26/20 -?-?-?-?-?-?-?-?-?-?-?-?- 23w 2d 223 lb (+5 lb) 116/64 Negative -?-?-?-?-?-?-?-?-?-?-?-?- Negative 150 -?-?-?-?-?-?-?-?--?-?-?-?- GP - no ctx, LOF , VB, DFM. GCT next visit. Growths ordered through [facility] 09/23/20 -?-?-?-?-?-?-?-?-?-?-?-?- 27w 2d 225 lb (+7 lb) 128/70 Negative -?-?-?-?-?-?-?-?-?-?-?-?- Negative 140 28 -?-?-?-?-?-?-?-?-?-?-?-?- SM- no vb lof go od fm no regular ctx passed 3 hr gest. 10/14/20 -?-?-?-?-?-?-?-?-?-?-?-?- 30w 2d 223 lb (+5 lb) 120/70 -?-?-?-?-?-?-?-?-?-?-?-?- 140 30 -?-?-?-?-?-?-?-?-?-?-?-?- SM- no vb lof go od fm no regualr ctx 10/28/20 -?-?-?-?-?-?-?-?-?-?-?-?- 32w 2d 224 lb 6 oz (+6 lb 6 oz) 120/68 Negative -?-?-?-?-?-?-?-?-?-?-?-?- Negative 150 32 -?-?-?-?-?-?-?-?-?-?-?-?- MH-No VB, LOF. R eactive NST. No CTX. 11/02/20 -?-?-?-?-?-?-?-?-?-?-?-?- 33w 0d 224 lb 8 oz (+6 lb 8 oz) 128/74 Trace -?-?-?-?-?-?-?-?-?-?-?-?- Negative 140 -?-?-?-?-?-?-?-?-?-?-?-?- SM- nst 11/11/20 -?-?-?-?-?-?-?-?-?-?-?-?- 34w 2d 222 lb 6 oz (+4 lb 6 oz) 124/80 Negative -?-?-?-?-?-?-?-?-?-?-?-?- Negative 140 -?-?-?-?-?-?-?-?-?-?-?-?- GP - no LOF, VB, DFM, ctx. Growth done today with MFM - 60%ile. NST reactive 11/16/20 -?-?-?-?-?-?-?-?-?-?-?-?- 35w 0d 222 lb (+4 lb) 110/62 1+ -?-?-?-?-?-?-?-?-?-?-?-?- Negative 140 -?-?-?-?-?-?-?-?-?-?-?-?- MH-NST only reac tive. Note protein in urine-sample sent for P/C ratio. Patient states no fluid intake yet today. No pre E sx. 11/25/20 -?-?-?-?-?-?-?-?-?-?-?-?- 36w 2d 225 lb (+7 lb) 130/80 Negative -?-?-?-?-?-?-?-?-?-?-?-?- Negative 140 38 0.5 -?-?-?-?-?-?-?-?-?-?-?-?- SM- no vb lof go od fm no reular ctx gbs today 12/02/20 -?-?-?-?-?-?-?-?-?-?-?-?- 37w 2d 223 lb (+5 lb) 112/80 Negative -?-?-?-?-?-?-?-?-?-?-?-?- Negative 140 -?-?-?-?-?-?--?-?-?-?-?-?- SM- no vb lof go od fm no regular ctx 12/09/20 -?-?-?-?-?-?-?-?-?-?-?-?- 38w 2d 226 lb (+8 lb) 120/72 Negative -?-?-?-?-?-?-?-?-?-?-?-?- Negative 140 38 -?-?-?-?-?-?-?-?-?-?-?-?- SM- no vb lof go od fm no reuglar ctx 12/15/20 -?-?-?-?-?-?-?-?-?-?-?-?- 39w 1d 224 lb 2 oz (+6 lb 2 oz) 115/72 Negative -?-?-?-?-?-?-?-?-?-?-?-?- Negative 130 39 1 -?-?-?-?-?-?-?-?-?-?-?-?- SM- no vb lof go od fm irregular ctx 12/23/20 -?-?-?-?-?-?-?-?-?-?-?-?- 40w 2d -?-?-?-?-?-?-?-?-?-?-?-?- 3 -?-?-?-?-?-?-?-?-?-?-?-?- 80 JV- muco us and some discharge in vagina that appears somewhat wet. amnisure collect 12/23/20 -?-?-?-?-?-?-?-?-?-?-?-?- 40w 2d 222 lb 3.615 oz (+4 lb 3.615 oz) 127/78 115/58 115/58 127/58 153/74 124/58 110/56 105/55 107/53 93/54 105/53 109/55 101/48 114/55 96/46 -?-?-?-?-?-?-?-?-?-?-?-?- -?-?-?-?-?-?-?-?-?-?-?-?- NST FHR Rate Baby A Baseline: 140 Variability:: Moderate Accelerations:: 15 x 15 Decelerations:: None NST Reactive:: Yes FHR Category:: Category I Uterine Activity:: q3-5 ROS Constitutional Constitutional: Reports systems reviewed and no addt'l complaints, except as documented ENT HEENT: Reports systems reviewed and no addt'l complaints, except as documented Cardiovascular Cardiovascular: Reports systems reviewed and no addt'l complaints, except as documented Respiratory/Chest Respiratory/Chest: Reports systems reviewed and no addt'l complaints, except as documented Gastrointestinal Gastrointestinal: Reports systems reviewed and no addt'l complaints, except as documented and nausea; Denies abdominal pain Genitourinary Genitourinary: Reports systems reviewed and no addt'l complaints, except as documented, contractions Details: present and frequency (regular ) and movement Details: present Musculoskeletal Musculoskeletal: Reports systems reviewed and no addt'l complaints, except as documented Integumentary Integumentary: Reports as per HPI Neurologic Neurologic: Reports systems reviewed and no addt'l complaints, except as documented Endocrine Endocrinology: Reports systems reviewed and no addt'l complaints, except as documented Vital Signs Vital Signs Vital Signs: 12/23/20 09:53 12/23/20 09:54 12/23/20 09:59 Temperature 96.6 F L Temperature Source Pulse Rate 96 100 Blood Pressure 127/78 H BP Systolic 127 BP Diastolic 78 Pulse Ox 98 97 12/23/20 11:37 12/23/20 11:38 12/23/20 12:41 Temperature 97.3 F L 97.9 F Temperature Source Temporal Temporal Pulse Rate 77 77 92 Blood Pressure 115/58 L 115/58 L 127/58 H BP Systolic 115 115 127 BP Diastolic 58 58 58 Pulse Ox 98 12/23/20 13:21 12/23/20 13:26 12/23/20 13:31 Temperature Temperature Source Pulse Rate 100 90 97 Blood Pressure 153/74 H 124/58 H 110/56 L BP Systolic 153 124 110 BP Diastolic 74 58 56 Pulse Ox 12/23/20 13:38 12/23/20 13:41 12/23/20 13:45 Temperature 97.7 F L Temperature Source Temporal Pulse Rate 93 102 H 102 H Blood Pressure 105/55 L 107/53 L BP Systolic 105 107 BP Diastolic 55 53 Pulse Ox 98 12/23/20 13:46 12/23/20 13:50 12/23/20 13:51 Temperature Temperature Source Temporal Pulse Rate 93 109 H 106 H Blood Pressure 93/54 L 105/53 L BP Systolic 93 105 BP Diastolic 54 53 Pulse Ox 99 12/23/20 13:55 12/23/20 13:56 12/23/20 14:00 Temperature Temperature Source Pulse Rate 90 103 H 106 H Blood Pressure BP Systolic BP Diastolic Pulse Ox 97 89 99 12/23/20 14:04 12/23/20 14:05 12/23/20 14:06 Temperature Temperature Source Pulse Rate 114 H 87 88 Blood Pressure 109/55 L 101/48 L BP Systolic 109 101 BP Diastolic 55 48 Pulse Ox 100 12/23/20 14:10 12/23/20 14:14 12/23/20 15:00 Temperature 97.7 F L Temperature Source Temporal Pulse Rate 88 92 63 Blood Pressure 114/55 L 96/46 L BP Systolic 114 96 BP Diastolic 55 46 Pulse Ox 100 Weight Weight: 222 lb 3.615 oz Body Mass Index (BMI) 40.6 Physical Exam Const alert, oriented x3 and healthy appearing Constitutional Narrative: uncomfortable with contractions HEENT normocephalic and moist oral mucous membranes Head and Scalp: atraumatic Neck full ROM, no lymphadenopathy, supple and thyroid normal General: trachea midline Thyroid: thyroid normal Lymph Lymphatic: no lymphadenopathy noted Chest inspection of chest normal Resp normal respiratory effort Cardio regular rate GI normal to inspection, nondistended, normoactive bowel sounds, soft to palpation and non-tender Inspection: gravid external exam normal Bimanual Exam - Vag & Uterus: uterus non-tender Manual OB Exam: estimated gestational size appropriate, presentation cephalic, dilated, effaced and station Extremity normal to inspection General Extremity: Negative for edema Skin no rashes or lesions noted Neuro deep tendon reflexes 2+ bilaterally Motor Exam: strength 5/5 throughout and clonus absent Psych mental status grossly normal Labs Labs Labs: Blood Type O POSITIVE Antibody Screen NEGATIVE Hct 39.0 % (37-47) Hgb 13.1 g/dL (12.0-15.0) Syphilis Total Ab Non-reactive Rubella IgG Antibody Reactive (Nonreactive) Hep Bs Antigen Non-Reactive (Nonreactive) Neisseria gonorrhoeae DNA (XIANG) Negative (Negative) HIV 1&2 Antibody Non-Reactive (Nonreactive) C.trachomatis DNA (PCR) Negative (Negative) Glucose 1 Hr 50 gm 170 mg/dL (70-140) H Rhogam given: No Miscellaneous Test Assessment & Plan (1) Anemia affecting : COMMENT: iron added (2) 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 Patient to see genetic counseling. (3) Obesity affecting : QUALIFIERS: Trimester: third trimester Qualified Code(s): O99.213 - Obesity complicating , third trimester COMMENT: 1 tm glucola; weekly nsts starting at 32 weeks, growth US nl 60% (4) Kidney disease: COMMENT: h/o glomerulonephritis, stable, baseline ur pr cr ratio (5) Supervision of other normal : COMMENT: [id number] KRISTINE: 12/21/20 boy PC: Jossy Spouse: Dimitry (6) H/O depression, currently : COMMENT: was previously on Celexa (7) : QUALIFIERS: Weeks of gestation: 40 weeks Qualified Code(s): Z3A.40 - 40 weeks gestation of COMMENT: AFP negative. NIPT low risk. +Fragile X premutation, nl anatomy. GBS neg (8) Active labor at term: PLAN: Patient presents IAL, plan expectant management for , p itocin/AROM PRN if needed. Pain management: plans epidural. GBS neg. Management of any complications: none I have reviewed the [facility] and made any clinically relevant updates.
[2020-12-23] MEDS: Oxytocin 30 units/NS 500 ml 30 UNITS/500 ML IV.SOLN IV (16:39)
[2020-12-23] MEDS: 0.9% Normal Saline 1,000 ML 300 ML INTRA-UTER (16:47)
[2020-12-23] MEDS: Lactated Ringers 1,000 ML 999 ML IV (17:05)
--- NOTE | 2020-12-23 19:51 | OP.PCM_ITS ---
Assessment & Plan (1) Active labor at term: (2) : QUALIFIERS: Weeks of gestation: 40 weeks Qualified Code(s): Z3A.40 - 40 weeks gestation of COMMENT: AFP negative. NIPT low risk. +Fragile X premutation, nl anatomy. 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 Patient to see genetic counseling. (8) Anemia affecting : COMMENT: iron added (9) Vaginal delivery: COMMENT: ial sm 40 boy [place] Maternal Data Information KRISTINE Calculator Estimated Delivery Date Method Current WG Current Estimate 12/21/20 Ultrasound #1 40w 2d Other Estimates 12/21/20 LMP (Certain) 40w 2d Vaginal Delivery Operative Information Pre-Operative Diagnosis: IAL Post-Operative Diagnosis: same Surgery / Procedure Performed: Vacuum Assisted Vaginal Delivery Type of Anesthesia: Epidural Special Medications: none Estimated Blood Loss: 100 Fluids Replaced: crystalloid Findings Description of Procedure: Patient began pushing and after an hour and a half of pushing with adequate progress to +2 station, due to recurrent periodic variable decelerations with tachycardia, the decision was made to proceed with operative vaginal delivery. Patient was consented and agreed. Patient began pushing and vacuum was applied for pressure into the green zone and with pulls with 2 contractions with 1 pop-off she delivered the head in the DOMINIQUE presentation. The head was delivered atraumatically. The anterior and posterior shoulders delivered without complication followed by the rest of the infant and the was placed on the maternal abdomen. Delayed cord clamping was employed for approximately 60 seconds. Cord was clamped and cut and gentle traction was applied to the cord and the placenta delivered spontaneously immediately following it was noted to be intact with three-vessel cord. The perineum and vagina were inspected and noted to have no laceration. EBL was 100 cc. Patient and tolerated delivery well. Presentation: DOMINIQUE Amniotic Membrane Rupture Type: Spontaneous Amniotic Fluid Description: Clear Placental Delivery Description: Spontaneous Placenta Disposition: [facility] Cord Vessel Description: 3 Vessels Cord Entanglement: None Delayed Cord Clamping: Yes Post Vaginal Delivery Medications Given After Delivery: IV Pitocin Episiotomy Description: None Laceration: None Complication Complications: None Procedures Urinary/Genital [id number]: [id number] Vaginal Delivery [facility]
--- NOTE | 2020-12-23 19:52 | PCM.DC ---
Discharge Instructions Diet Discharge Diet: No restrictions Activity Discharge Activity: Return to Normal Activity, May Not Drive (while taking narcotic pain medications.) and May Shower May resume sexual activity in: 4-6 weeks Dressing / Incision Call your doctor if your incision/area has: Continuous Slow Oozing, Sudden Increased Bleeding, Increased Pain/ Swelling, Increased Redness and Foul Smelling Discharge Follow Up Care Please Follow Up With: Shweta Fisher MD When: Call [phone] to make an appointment with your doctor in 6 weeks. If you had elevated blood pressure or 4th degree laceration, you will need to be seen in 2 weeks. Test Results: Test results from this visit will be discussed in further detail at your follow-up appointment, if applicable. Discharge Plan Admission Admit Date/Time: 12/23/20 10:10 Primary Reason for Your Visit: vaginal delivery Attending Provider: Pau Lundberg Primary Care Provider: Kirt Radford Discharge Orders/Prescriptions Prescriptions: No Action PNV-DHA 27 mg iron-1 mg -300 mg capsule 1 cap PO DAILY RF: 0 famotidine [Pepcid] 20 mg tablet 20 mg PO BID Qty: 60 RF: 3 ferrous sulfate 325 mg (65 mg iron) tablet 325 mg PO DAILY RF: 0 docusate sodium [Colace] 100 mg capsule 100 mg PO DAILY RF: 0 cyclobenzaprine 5 mg tablet 5 mg PO TID PRN (Reason: muscle spasm) Qty: 20 RF: 4 Referrals / Follow Up: Kirt Radford MD [Primary Care Provider] - Disposition Disposition (needs filled in before D/C Order can be placed): Home, Self Care
[2020-12-23] MEDS: Oxytocin 30 units/NS 500 ml 30 UNITS/500 ML IV.SOLN 334 UNITS IV (22:29)
[2020-12-24] VITALS (12 sets, daily range): BP systolic 101–120; BP diastolic 43–58; PULSE 81–92; RESP 16–18; TEMP 36–36.9; O2SAT 95–98
[2020-12-24] MEDS: 0.9% Saline Lock 10 ML Syringe IV ×2 (01:03→01:27)
[2020-12-24] MEDS: Acetaminophen 500 MG Tablet 1000 MG PO ×4 (01:22→20:59)
[2020-12-24] MEDS: Ondansetron 4 MG/2 ML Vial IV (01:27)
[2020-12-24] MEDS: oxyCODONE 5 MG Tablet PO ×4 (04:51→23:15)
--- NOTE | 2020-12-24 07:18 | PN.OBGYN_ITS ---
Subjective Subjective Patient doing well without complaints. Tolerating PO. Ambulating and voiding without difficulty. feeding well. Denies chest pain, shortness of breath, calf pain/swelling, fevers, chills, lightheadedness. Objective Data Objective Data Vital Signs: Vital Signs Temp Pulse Resp BP Pulse Ox 98.1 F 91 18 102/50 L 98 12/24/20 04:45 12/24/20 04:45 12/24/20 00:51 12/24/20 04:45 12/24/20 00:51 Oxygen Delivery Method Room Air Weight: 222 lb 3.615 oz Body Mass Index (BMI) 40.6 Intake & Output: Intake and Output for Last 24 Hours 12/22/20 12/23/20 12/24/20 23:59 23:59 23:59 Intake Total 3946.70 / 3946.70 327.43 / 327.43 Output Total 500 / 500 750 / 750 Balance 3446.70 / 3446.70 -422.57 / -422.57 Lab / Micro Data Result Diagrams: 12/23/20 11:30 Labs: Laboratory Results - last 24 hr 12/23/20 09:30: Vag Amniotic Fld Detect POSITIVE H 12/23/20 11:30: WBC 12.5 H, RBC 4.68, Hgb 13.1, Hct 39.0, MCV 83.3, MCH 28.0, MCHC 33.6, RDW Std Deviation 48.0 H, RDW Coeff of Brooke 16.0 H, Plt Count 203, MPV 10.3, Immature Gran % (Auto) 0.400, Neut % (Auto) 81.0 H, Lymph % (Auto) 14.3 L, [place] % (Auto) 3.6, Eos % (Auto) 0.6, Baso % (Auto) 0.1, Absolute Neuts (auto) 10.1 H, Absolute Lymphs (auto) 1.79, Nucleated RBC % 0 12/23/20 11:30: Blood Type O POSITIVE, Antibody Screen NEGATIVE ROS Constitutional Constitutional: Reports systems reviewed and no addt'l complaints, except as documented Cardiovascular Cardiovascular: Reports systems reviewed and no addt'l complaints, except as documented Respiratory/Chest Respiratory/Chest: Reports systems reviewed and no addt'l complaints, except as documented Gastrointestinal Gastrointestinal: Reports systems reviewed and no addt'l complaints, except as documented Physical Exam Const alert, oriented x3 and no apparent distress HEENT Head and Scalp: atraumatic Resp normal respiratory effort GI soft to palpation and non-tender Bimanual Exam - Vag & Uterus: uterus non-tender Uterus Palpation: uterus fundus firm (below Umbilicus) Assessment & Plan (1) Vaginal delivery: COMMENT: 40 ial vavd sec to decels SM boy [place] PLAN: s/p PPD # 1 1. routine post delivery care 2. breast feeding- support given 3. rh positive 4. rubella immune
--- NOTE | 2020-12-24 07:20 | NURSING ---
bedside report given to Yanet Greenberg RN who is assuming care of pt at this time
--- NOTE | 2020-12-24 12:05 | NURSING ---
Student charting reviewed and appropriate. Jesús MERCEDES, [employer] instructor
[2020-12-25 02:00] VITALS: BP 108/44; PULSE 73; RESP 18; TEMP 36; O2SAT 97
[2020-12-25] MEDS: Acetaminophen 500 MG Tablet 1000 MG PO (05:57)
[2020-12-25 08:09] VITALS: BP 114/48; PULSE 71; RESP 16; TEMP 36.1; O2SAT 96
--- NOTE | 2020-12-25 08:45 | PCM.DC.SUM ---
Documented by User: Dr. Pau Null DO 12/25/20 09:01 Providers Date of Admission: 12/23/20 Primary Care Physician: Dr. Kirt Radford MD Reason For Visit: VAGINAL DELIVERY Diagnosis Discharge Diagnosis (1) Vaginal delivery: Status: Acute Code(s): O80 - Encounter for full-term uncomplicated delivery Medications at Discharge Home Medications multivitamin no.47-iron fum 27 mg-folate no.1 1 mg-dha 300 mg capsule 1 cap PO DAILY 05/04/20 famotidine 20 mg tablet 20 mg PO BID #60 tab 08/26/20 cyclobenzaprine 5 mg tablet 5 mg PO TID PRN #20 tab 09/24/20 ferrous sulfate 325 mg (65 mg iron) tablet 325 mg PO DAILY 11/11/20 docusate sodium 100 mg capsule 100 mg PO DAILY 11/25/20 oxycodone 5 mg PO Q6H PRN 7 Days #20 cap 12/25/20 Hospital Course Procedures - (vaginal delivery ) Summary of Care Provided Minutes Spent on Discharge: 15 Hospital Course: The patient was admitted for labor on 12/23/2020 and delivered a viable male infant with Dr. Fisher on 12/23/2020 at 22:00. She recovered well on ppd #1 and requested dc to home on the morning of ppd#2. Physical Exam Const alert, oriented x3 and no apparent distress General Appearance: cooperative and comfortable Resp normal respiratory effort Cardio regular rate GI normal to inspection, nondistended, normoactive bowel sounds GI Narrative: uterus is firm below umbilicus Palpation: soft Bimanual Exam - Adnexa, Other: Negative for cul-de-sac fullness Back/Spine no CVA tenderness and thoraco-lumbar ROM normal Extremity normal to inspection, no clubbing, cyanosis or edema, no calf tenderness and no pedal edema Psych mental status grossly normal, thought process normal, cooperative, affect normal, speech normal, activity/motor behavior normal, denies homicidal ideation and denies suicidal ideation Weight / BMI Weight Weight: 222 lb 3.615 oz Body Mass Index (BMI) 40.6 ABG / Lab / Microbiology Data Result Diagrams: 12/23/20 11:30 D/C Instructions Discharge Diet: No restrictions Discharge Activity: May Drive May shower in (days): 1 May resume sexual activity in: 4-6 weeks Lifting Restrictions: 10 lbs Call your doctor if your incision/area has: Continuous Slow Oozing, Sudden Increased Bleeding, Increased Pain/ Swelling, Increased Redness and Foul Smelling Discharge Call your doctor if you observe: Fever of 101 or Higher, Using more than 1 pad per hour, Shortness of breath, Dizziness, Chest pain and Calf discomfort Please Follow Up With: Shweta Fisher MD When: Call [phone] to make an appointment with your doctor in 6 weeks. If you had elevated blood pressure or 4th degree laceration, you will need to be seen in 2 weeks. Discharge Plan Admission Admit Date/Time: 12/23/20 10:10 Primary Reason for Your Visit: vaginal delivery Attending Provider: Shweta Fisher Primary Care Provider: Kirt Radford Instructions Patient Instructions: After a Vaginal Discharge Orders/Prescriptions Prescriptions: New oxycodone 5 mg capsule 5 mg PO Q6H PRN (Reason: pain) 7 Days Qty: 20 RF: 0 No Action PNV-DHA 27 mg iron-1 mg -300 mg capsule 1 cap PO DAILY RF: 0 famotidine [Pepcid] 20 mg tablet 20 mg PO BID Qty: 60 RF: 3 ferrous sulfate 325 mg (65 mg iron) tablet 325 mg PO DAILY RF: 0 docusate sodium [Colace] 100 mg capsule 100 mg PO DAILY RF: 0 cyclobenzaprine 5 mg tablet 5 mg PO TID PRN (Reason: muscle spasm) Qty: 20 RF: 4 Referrals / Follow Up: iKrt Radford MD [Primary Care Provider] - Disposition Disposition (needs filled in before D/C Order can be placed): Home, Self Care Documented by User: Dr. Shweta Fisher MD 12/26/20 08:46 Providers Date of Admission: 12/23/20 Reason For Visit: VAGINAL DELIVERY Medications at Discharge Home Medications multivitamin no.47-iron fum 27 mg-folate no.1 1 mg-dha 300 mg capsule 1 cap PO DAILY 05/04/20 famotidine 20 mg tablet 20 mg PO BID #60 tab 08/26/20 cyclobenzaprine 5 mg tablet 5 mg PO TID PRN #20 tab 09/24/20 ferrous sulfate 325 mg (65 mg iron) tablet 325 mg PO DAILY 11/11/20 docusate sodium 100 mg capsule 100 mg PO DAILY 11/25/20 oxycodone 5 mg PO Q6H PRN 7 Days #20 cap 12/25/20 ABG / Lab / Microbiology Data Result Diagrams: 12/23/20 11:30 Meaningful Use Info Meaningful Use Diagnoses (Choose all that apply): None applicable Discharge Plan Admission Admit Date/Time: 12/23/20 10:10 Primary Reason for Your Visit: vaginal delivery Attending Provider: Shweta Fisher Primary Care Provider: Kirt Radford Instructions Patient Instructions: After a Vaginal Discharge Orders/Prescriptions Prescriptions: New oxycodone 5 mg capsule 5 mg PO Q6H PRN (Reason: pain) 7 Days Qty: 20 RF: 0 No Action PNV-DHA 27 mg iron-1 mg -300 mg capsule 1 cap PO DAILY RF: 0 famotidine [Pepcid] 20 mg tablet 20 mg PO BID Qty: 60 RF: 3 ferrous sulfate 325 mg (65 mg iron) tablet 325 mg PO DAILY RF: 0 docusate sodium [Colace] 100 mg capsule 100 mg PO DAILY RF: 0 cyclobenzaprine 5 mg tablet 5 mg PO TID PRN (Reason: muscle spasm) Qty: 20 RF: 4 Referrals / Follow Up: Kirt Radford MD [Primary Care Provider] - Disposition Disposition (needs filled in before D/C Order can be placed): Home, Self Care
== END 2020-12-25 11:30 | disposition home or self-care (01) | DRG 807 ==
LOC: WP 10:51 → WPOUT 12-24 09:55
PROVIDERS: Obstetrics & Gynecology; Admitting Provider Obstetrics & Gynecology; PCP Family Medicine; Referring Provider Obstetrics & Gynecology; Visit Provider Obstetrics & Gynecology
DX: O99.02 Anemia complicating childbirth (principal); Z37.0 Single live birth; O76 Abnormality in fetal heart rate and rhythm complicating labor and delivery; D64.9 Anemia, unspecified; O99.214 Obesity complicating childbirth; E66.9 Obesity, unspecified; O99.345 Other mental disorders complicating the puerperium; F53.0 Postpartum depression; Z3A.40 40 weeks gestation of pregnancy
CPT/HCPCS: 59025; 59050; 84112; 85025; 86850; 86900; 86901; 99218; J7030; J7120; A4216; G0378; J2405

== ENCOUNTER → 2021-01-14 | Outpatient (CLI) | payer OTHER, SELFPAY | END | disposition home or self-care (01) | LOC: LABSPEC 10:20 | PROVIDERS: PCP Family Medicine; Referring Provider Physician Assistant Surgical; Visit Provider Physician Assistant Surgical | DX: Z11.52 Encounter for screening for COVID-19 (principal) | CPT/HCPCS: 87635; U0005; U0003 ==

== ENCOUNTER → 2021-12-26 | Outpatient (CLI) | payer OTHER, SELFPAY | END | disposition home or self-care (01) | LOC: LABSPEC 12-27 08:39 | PROVIDERS: PCP Family Medicine; Visit Provider Nurse Practitioner Family | DX: R31.9 Hematuria, unspecified (principal) | CPT/HCPCS: 87086; 87088 ==

== ENCOUNTER → 2022-10-03 | Outpatient (CLI) | payer OTHER, SELFPAY ==
[2022-10-03 12:43] LABS: Protein, Urine (Random) 19.2 mg/dL (<11.9); Protein:Creat Ratio 179 mg/g CRE (0-200)
[2022-10-03 12:51] LABS: Anion Gap 5 (5-15); BUN 8 mg/dL (7-18); BUN/Creat Ratio 10.8 RATIO (10-20); Calcium,Total 9.2 mg/dL (8.5-10.1); Chloride 104 mmol/L (98-107); Creatinine, Serum 0.74 mg/dL (0.55-1.02); EST Glomerular Filtration Rate 97 mL/min (>60); Est Glom Filt Rate - Afr Amer 117 mL/min (>60); Glucose 82 mg/dL (74-106); Sodium Level 138 mmol/L (136-145)
== END | disposition home or self-care (01) ==
LOC: MTLAB 11:06
PROVIDERS: PCP Family Medicine; Referring Provider Internal Medicine Nephrology; Visit Provider Internal Medicine Nephrology
DX: N18.1 Chronic kidney disease, stage 1 (principal)
CPT/HCPCS: 36415; 80048; 82570; 84156

== ENCOUNTER → 2023-03-05 | Outpatient (CLI) | payer OTHER, SELFPAY ==
--- OUTSIDE RECORDS SUMMARY | 2023-03-05 12:04 | XMS RPT_ITS | CCD ---
Author Name Unknown Address [facility]ly [facility] [id number] [place] [address] Organization [facility] Care Team Providers Care Vp Medical Name Role Phone Phillip NAVARRETE, Shweta Rboledo Unavailable [phone] Medications Completed/Discontinued Medications Medication Drug Class(es) Dates Sig (Normalized) Sig (Original) calcium (1 source) Phosphate Binder, Calcium Start: 09-21-2016 take 1 tablet by mouth once daily CALCIUM 1200 6095-7664 MG-UNIT CHEW One tablet by mouth daily CALCIUM CARBONATE-VIT D-MIN [id number] Shweta Fisher MD LEVONORGESTREL (1 source) Progestin, Progestin-containi ng Intrauterine Device Start: 09-21-2016 MIRENA (52 MG) 20 MCG/24HR IUD LEVONORGESTREL [id number] Shweta Fisher MD lisinopril 2.5 mg oral tablet (1 source) Angiotensin Converting Enzyme Inhibitor Start: 09-21-2016 take 1 tablet by mouth once daily LISINOPRIL 2.5 MG TABS One tablet by mouth daily LISINOPRIL [id number] Shweta Fisher MD MULTIPLE VITAMINS-MINERALS (1 source) Start: 09-21-2016 MULTIVITAMIN GUMMIES WOMENS CHEW MULTIPLE VITAMINS-MINERALS [id number] Shweta Fisher MD Problems Active Problems Problem Classification Problem Date Documented Date Episodic/Chronic Unclassified (1 source) Gynecologic examination ; Translations: [Encounter for gynecological examination (general) (routine) without abnormal findings] Onset: 09-21-2016 09-21-2016 Past or Other Problems Problem Classification Problem Date Documented Da te Episodic/Chronic Contraceptive and procreative management (1 source) Encounter for other general counseling and advice on procreation; Translations: [Encounter for other general counseling and advice on procreation] Onset: 09-21-2016 09-21-2016 Episodic Results Test Name Value Interpretation Reference Range Facil ity Vital Signs Date Time Vital Sign Value Performing Clinician Kelsi marr 09-21-2016 13:52-0400 BMI (Body Mass Index) 37.2 kg/m2 Shweta Fisher MD [facility] 09-21-2016 13:52-0400 Body Temperature 98.2 [degF] Shweta Fisher MD [facility] 09-21-2016 13:52-0400 BP Diastolic 79 mm[Hg] Shweta Fisher MD [facility] 09-21-2016 13:52-0400 BP Systolic 116 mm[Hg] Shweta Fisher MD [facility] 09-21-2016 13:52-0400 Height 157.48 cm Shweta Fisher MD [facility] 09-21-2016 13:52-0400 Pulse (Heart Rate) 79 /min Shweta Fisher MD [facility] 09-21-2016 13:52-0400 Respiratory Rate 16 /min Shweta Fisher MD [facility] 09-21-2016 13:52-0400 Weight 92.26 kg Shweta Fisher MD [facility] Encounters Encounter Date Encounter Type Care Provider Facility Start: 03-24-2017 End: 03-24-2017 Ambulatory [facility] Plan of Treatment Date Care Activity Detail Author [facility] Clinical Note 07-26-2020 Note Date & Type Note Facility 07-26-2020 Note MFM / Genetic Counse che note Consultation has been requested by: Bev Cox MD EDC: Estimated Date of Delivery: None noted. 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 18w6d Prior with 2VC, now 2.5yo and healthy, no issues. BMI 40 H/o renal disease as child, but has apparently resolved. If ongoing issue she is at increased risk of PreEclampsia and should consider MFM consultation. FOB is carrier for CF - patient is not, with low residual risk. (Detailed history is noted in the genetic counselor's note) Imagin. Single living intrauterine with biometry consistent with clinical dates. 2. Anatomic survey was limited as noted above, however remainder of exam visualized and appeared normal. 3. Amniotic fluid appeared normal. 4. Placenta is posterior. 5. Transvaginal cervical length to evaluate for risk for labor was performed and appeared normal, 39.7 mm. Please refer to the ultrasound report for full details. Obesity: The patient has a pre- BMI of 40, which is Morbidly Obese Obesity increases the risk of many complications including spontaneous miscarriage, congenital anomalies (even without comorbid diabetes mellitus), macrosomia, gestational and type 2 diabetes, hypertension and preeclampsia, stillbirth, and delivery. [place] weight gain for this patient in this is between 11-20 pounds. Similarly, an early GCT should be performed with early labs and again at the time of standard GCT testing if initially negative screen. With a BMI > 35, growth assessment is recommended at 36 weeks and NST/BPP weekly at 36 weeks. Should she require a for delivery and her BMI is > 40, post-operative thromboprophylaxis with Lovenox 40 mg SC daily during the hospitalization is recommended. Genetic Counseling Summary I discussed with the patient the following issues: 1. Noninvasive versus invasive methods for detection of aneuploidy - NIPT low risk, 2. Follow up ultrasound examinations as scheduled She expressed understanding of the above information. Follow Up Recommendations: f/up for completion of anatomic survey (prefers [place] location) 2 - 4 weeks. The total patient time of the visit was 20 minutes, of which greater than 50% of the time was spent counseling and coordinating care. Discussion topics are listed above. Pau James MD Maternal- Medicine [facility] Summary Purpose Family History No Family History Records FoundNo Family History Records Found Advance Directives No Advanced Directives Records FoundNo Advanced Directives Records Found Additional Source Comments INFORMATION SOURCE (unrecogn ized section and content) DATE CREATED AUTHOR AUTHOR'S ORGANIZ ATION 11/12/2020 [facility] FOR RECORDS PERTAINING TO PATIENTS WHO ARE OR HAVE BEEN ENROLLED IN A CHEMICAL DEPENDENCY/SUBSTANCEABUSE PROGRAM, SOME INFORMATION MAY BE OMITTED. This clinical summary was aggregated from multiple sources. Caution should be exercised in using it in the provision of clinical care. This summary normalizes information from multiple sources, and as a consequence, information in this document may materially change the coding, format and clinical context of patient data. In addition, data may be omitted in some cases. CLINICAL DECISIONS SHOULD BE BASED ON THE PRIMARY CLINICAL RECORDS. [employer] [facility]. provides no warranty or guarantee of the accuracy or completeness of information in this document.
[2023-03-08 10:09] LABS: HPV APTIMA, High Risk Negative (Negative)
== END | disposition home or self-care (01) ==
LOC: LABSPEC 11:24
PROVIDERS: Referring Provider Obstetrics & Gynecology; Visit Provider Obstetrics & Gynecology
DX: Z12.4 Encounter for screening for malignant neoplasm of cervix (principal)
CPT/HCPCS: 87624; 88175; G0145

== ENCOUNTER → 2023-12-19 | Outpatient (CLI) | payer OTHER, SELFPAY | END | disposition home or self-care (01) | LOC: MTRAD 16:23 | PROVIDERS: PCP Family Medicine; Referring Provider Family Medicine; Visit Provider Family Medicine | DX: M25.539 Pain in unspecified wrist (principal) | CPT/HCPCS: 73110 ==

== ENCOUNTER → 2024-02-15 | Outpatient (CLI) | payer OTHER, SELFPAY ==
[2024-02-15 16:48] LABS: Absolute Lymphocyte Count 2.86 X10^3/uL (0.83-4.51); Absolute Neutrophil Count 6.8 X10^3/uL (2.0-7.7); Basophil# 0.05 X10^3/uL; Basophil% 0.5 % (0-1); Eosinophil# 0.27 X10^3/uL; Eosinophils% 2.6 % (0-5); Hematocrit 41.1 % (37-47); Hemoglobin 13.9 g/dL (12.0-15.0); Lymphocyte # 2.86 X10^3/ul (0.83-4.51); Lymphocyte % 27.6 % (19-41); Mean Corp Hgb Conc 33.8 g/dL (32-36); Mean Corpuscular Hgb 28.7 pg (27.0-32.0); Mean Corpuscular Volume 84.9 fL (81-99); Mean Platelet Vol. 9.2 fl (6.2-12.0); Monocyte# 0.38 X10^3/uL; Monocyte% 3.7 % (0-10); NRBC Flagged by Analyzer 0 % (0-5); Neutrophil # 6.76 X10^3/uL (2.7-7.7); Neutrophil % 65.3 % (47-70); Platelet Count 246 K/mm3 (150-450); RBC Distribution Width CV 12.3 % (11.6-14.6); RBC Distribution Width SD 37.8 fl (35.1-43.9); Red Blood Count 4.84 M/mm3 (4.2-5.4); White Blood Count 10.4 K/mm3 (4.4-11.0)
[2024-02-15 17:12] LABS: AST(SGOT) 23 U/L (15-37); Alanine Aminotransfer ALT/SGPT 35 U/L (13-56); Anion Gap 2 (5-15); BUN 12 mg/dL (7-18); BUN/Creat Ratio 15.2 RATIO (10-20); Calcium,Total 8.7 mg/dL (8.5-10.1); Chloride 106 mmol/L (98-107); Creatinine, Serum 0.79 mg/dL (0.55-1.02); EST Glomerular Filtration Rate 89 mL/min (>60); Est Glom Filt Rate - Afr Amer 107 mL/min (>60); Glucose 75 mg/dL (74-106); Potassium 3.8 mmol/L (3.5-5.1); Sodium Level 136 mmol/L (136-145)
[2024-02-18 12:07] LABS: Hepatitis B Core AB IgM Negative (Negative); QNTFERON TB Mitogen Value > 10.00 IU/mL (.); QNTFERON TB Nil Value 0.02 IU/mL (.); QNTFERON TB1+ Ag Value 0.06 IU/mL (.); QNTFERON TB2+ Ag Value 0.08 IU/mL (.); QNTIFERON TB Positive Criteria Negative (Negative)
[2024-02-18 15:30] LABS: Hepatitis B Surface Antigen Non-Reactive (Nonreactive); Hepatitis C Antibody Non-Reactive (Nonreactive)
[2024-02-18 15:54] LABS: Hepatitis B Surface Antibody Reactive
== END | disposition home or self-care (01) ==
LOC: LAB 16:21
PROVIDERS: PCP Family Medicine
DX: L40.0 Psoriasis vulgaris (principal); Z79.620 Long term (current) use of immunosuppressive biologic
CPT/HCPCS: 36415; 80048; 84450; 84460; 85025; 86480; 86705; 86706; 86803; 87340

== ENCOUNTER → 2024-07-15 | Outpatient (CLI) | payer SELFPAY | END | disposition home or self-care (01) | PROVIDERS: PCP Nurse Practitioner Family; Referring Provider Nurse Practitioner Family; Visit Provider Nurse Practitioner Family | DX: E66.9 Obesity, unspecified (principal) | CPT/HCPCS: 76499 ==

== ENCOUNTER → 2024-09-19 | Outpatient (CLI) | payer OTHER, SELFPAY ==
[2024-09-19 14:41] LABS: Vitamin D,25 Hydroxy 68.2 ng/mL (30-100)
== END | disposition home or self-care (01) ==
LOC: LAB 12:56
PROVIDERS: PCP Nurse Practitioner Family; Referring Provider Nurse Practitioner Family; Visit Provider Nurse Practitioner Family
DX: F41.1 Generalized anxiety disorder (principal)
CPT/HCPCS: 36415; 82306; 84443